=== PATIENT | male | born 1940 | race Caucasian/White ===

== ENCOUNTER 2017-12-19 18:26 | Observation (INO) | payer MEDICARE ==
[2017-12-19 18:59] LABS: Bilirubin Negative (Negative); Blood, Urine Trace (Negative); Clarity CLEAR (Clear); Glucose, Urine (Dipstick) 250 mg/dL (Negative); Leukocyte Negative (Negative); Nitrite Negative (Negative); Protein, Urine (Dipstick) Negative (Neg-Trace); Specific Gravity, Urine 1.012 (1.002-1.036); Urobilinogen 0.2 mg/dL (0.2-1.0)
[2017-12-19 19:11] LABS: Bacteria/HPF Rare-Few HPF (None Seen); Hyaline Casts/LPF 0-3 HYALINE CAST LPF (0-3 Hyaline); RBC/HPF None Seen HPF (0-3); Squamous Epithelial None Seen HPF (0-3); WBC/HPF None Seen HPF (0-3)
[2017-12-19 19:22] LABS: #Lymphocytes 0.8 thou/uL (1.20-3.40); #Monocytes 0.1 thou/uL (0.11-0.59); #Neutrophils 7.7 thou/uL (1.40-6.50); %Basophils 0.1 % (0.0-1.0); %Eosinophils 0.2 % (0.0-10.0); %Lymphocytes 9.3 % (21.0-51.0); %Monocytes 1.2 % (0.0-10.0); %Neutrophils 89.2 % (42.0-75.0); Hemoglobin 14.3 g/dL (14.0-18.0); Mean Corpuscular Hemoglobin 27.6 pg (27.0-31.0); Mean Corpuscular Volume 86.1 fl (80.0-94.0); Mean Platelet Volume 8.1 fL (7.4-10.4); Platelet Count 190 thou/uL (130-400); White Blood Cell (WBC) Count 8.6 thou/uL (4.8-10.8)
[2017-12-19 19:45] LABS: ALT (SGPT) 9 U/L (8-55); AST (SGOT) 14 U/L (5-34); Albumin 4.3 g/dL (3.4-4.8); Alkaline Phosphatase 54 U/L (40-150); Anion Gap 20 mmol/L (10-20); BUN (Urea Nitrogen) 35 mg/dL (8.4-25.7); Bilirubin, Total 0.4 mg/dL (0.2-1.2); Calc. Creatinine Clearance 0 mL/min (70-130); Calcium 9.4 mg/dL (7.8-10.44); Carbon Dioxide 18 mmol/L (23-31); Chloride 100 mmol/L (98-107); Estimated GFR-MDRD 32; Globulin 3.7 g/dL (2.4-3.5); Glucose 259 mg/dL (83-110); Magnesium 1.8 mg/dL (1.6-2.6); Potassium 4.8 mmol/L (3.5-5.1); Sodium 133 mmol/L (136-145)
[2017-12-19 19:49] LABS: CKMB 4.1 ng/mL (0-6.6); Troponin I 0.011 ng/mL (< 0.028)
[2017-12-19] MEDS ORDERED: Adacel (T-DAP) 0.5 ML VIAL ONE (21:15)
--- NOTE | 2017-12-19 23:09 | PDOC.PN ---
- Subjective Encounter Start Date: 12/19/17 Encounter Start Time: 23:09 - Objective Result Diagrams: 12/19/17 19:11 12/19/17 19:11 Dx/Plan - Plan * . Review of Systems - Medications/Allergies Allergies/Adverse Reactions: Allergies Allergy/AdvReac Type Severity Reaction Status Date / Time No Known Allergies Allergy Unverified 07/11/15 13:45
[2017-12-20] MEDS ORDERED: Sodium Chloride 0.45% 1,000 ML IV SCH (01:00)
[2017-12-20 02:01] LABS: Troponin I Less than 0.010 ng/mL (< 0.028)
[2017-12-20] MEDS: Sodium Chloride 0.9% 1,000 ML IV SCH ×2 (02:44→16:41)
[2017-12-20] MEDS ORDERED: Insulin Regular 300 UNITS/3 ML VIAL SC PRN (02:59)
[2017-12-20] MEDS ORDERED: Calcium Carbonate 500 MG ChewTAB PO PRN (02:59)
[2017-12-20] MEDS ORDERED: Acetaminophen 325 MG TAB PO PRN (02:59)
[2017-12-20] MEDS ORDERED: Dextrose 5% in Water 1,000 ML IV PRN (02:59)
[2017-12-20] MEDS ORDERED: Ondansetron ODT 4 MG TAB PO PRN (02:59)
[2017-12-20] MEDS ORDERED: Dextrose 50% Abboject 50 ML SYRINGE SLOW IVP PRN (02:59)
[2017-12-20] MEDS ORDERED: Ondansetron HCl/PF 4 MG/2 ML Vial IVP PRN (02:59)
[2017-12-20] MEDS ORDERED: Senokot 8.6 MG TAB PO PRN (02:59)
--- NOTE | 2017-12-20 03:51 | HP ---
DATE OF ADMISSION: 12/19/2017 The patient was seen and examined on 12/19/2017. CHIEF COMPLAINT: Generalized weakness. HISTORY OF PRESENT ILLNESS: The patient is a 77-year-old male with coronary artery disease, hyperten marissa, and diabetes mellitus type 2, presented to [facility] with above complaints. The patient normally follows Dr. Bales. Over the past 2 to 3 days, the patient had diarrhea, the diarrhea that was watery and several episode s a day. His last episode of diarrhea was yesterday. Over the past 24 hours, the patient had nausea , vomiting along with poor appetite. He also had mild generalized abdominal pain that is more or les s resolved. Earlier today while he was at his grandson's event, he had a near syncopal episode. There was no los s of consciousness. Later on while he was taken into a pickup truck he fell and hit his left elbow. There was no double vision, blurring of vision, facial asymmetry, palpitations reported. He denies any fever or chills. PAST MEDICAL HISTORY: 1. Coronary artery disease. 2. Hypertension. 3. Hyperlipidemia. 4. History of TIA. 5. Depression. PAST SURGICAL HISTORY: 1. Cholecystectomy. 2. Appendectomy. 3. Vasectomy. ALLERGIES: The patient denies any drug allergies. CURRENT HOME MEDICATIONS: Family to get accurate list of medications. SOCIAL HISTORY: The patient currently lives at home with his son and grandchildren. No smoking, alc ohol, or drug use. Ambulates with the help of a cane. FAMILY HISTORY: Negative for premature coronary artery disease. REVIEW OF SYSTEMS: The following complete review of systems was negative, unless otherwise mentioned in the HPI or below: Constitutional: Weight loss or gain, ability to conduct usual activities. Skin: Rash, itching. Eyes: Double vision, pain. ENT/Mouth: Nose bleeding, neck stiffness, pain, tenderness. Cardiovascular: Palpitations, dyspnea on exertion, orthopnea. Respiratory: Shortness of breath, wheezing, cough, hemoptysis, fever or night sweats. Gastrointestinal: Poor appetite, abdominal pain, heartburn, nausea, vomiting, constipation, or diarr hea. Genitourinary: Urgency, frequency, dysuria, nocturia. Musculoskeletal: Pain, swelling. Neurologic/Psychiatric: Anxiety, depression. Allergy/Immunologic: Skin rash, bleeding tendency. Events at the [place] emergency room, the patient received IV fluid with 125 Solu-Medrol, Zofran 20 mg IV Lasix and Neosporin ointment on the skin laceration. His chest x-ray was negative for infi ltrate. His WBC at the outside facility showed 7.2 with hemoglobin 12, platelet count of 212. His B UN was 32 with creatinine 2.1 with troponin of 0.01. BNP of 163. Sodium was 145, potassium 4.9. Ur inalysis showed 6 to 14 wbc's with some hyalin casts without any bacteria. His EKG by my review show ed sinus rhythm with left axis deviation without significant ST-T wave changes. He received a dose o f Levaquin and tetanus toxoid at this facility. PHYSICAL EXAMINATION: VITAL SIGNS: Temperature 98.3, respirations 16, pulse 103, blood pressure 133/61 with O2 saturation 97% on room air. GENERAL: A 77-year-old male in no apparent distress, feels better after IV fluids. HEENT: Head atraumatic, normocephalic. Sclerae are anicteric. Dry mucous membranes. No oral lesio n. NECK: Supple, no JVD appreciated. No carotid bruit. LUNGS: Essentially clear to auscultation bilaterally, no wheezing, rales or rhonchi. HEART: S1, S2 present. Regular rate and rhythm. No murmur, rubs or gallops. ABDOMEN: Soft, obese, bowel sounds present, no rebound, guarding, no costovertebral angle tenderness . EXTREMITIES: No edema or calf tenderness. SKIN: Warm and dry. There is approximately 5 x 5 cm lipoma over his posterior upper back. There is also a laceration on the dorsum of his left hand. LYMPH NODES: No palpable lymph nodes in the neck. NEUROLOGIC: Grossly nonfocal, moves all four extremities. PSYCHIATRY: Alert, awake, oriented x3. PERIPHERAL VASCULAR: Radial pulses palpable bilaterally. MUSCULOSKELETAL: No joint swelling or tenderness. LABORATORY FINDINGS: As discussed above. Repeat creatinine at this facility was 2.03 with BUN 35. His baseline creatinine is around 1.27. EKG by my review as discussed above. [facility] x-[facility] at the [facility] facility was negative for acute findings. IMPRESSION: 1. Generalized weakness, probably secondary to dehydration/hypovolemia/acute kidney injury. 2. Acute kidney injury on chronic kidney disease stage 3, most likely secondary to hypovolemia. 3. Hyponatremia with sodium 133 secondary to dehydration. 4. Hypertension. 5. Diabetes mellitus type 2. 6. Gastroesophageal reflux disease. 7. History of coronary artery disease. 8. Questionable urinary tract infection based on urinalysis at the outside facility. However, allyssa reyes urinalysis at this facility was negative for wbc or bacteria. He received a dose of Levaquin in th e emergency room. Urine cultures have been sent. 9. Benign prostatic hypertrophy. The patient follows Dr. Ayala. 10. Near syncope secondary to generalized weakness. 11. Metabolic acidosis probably secondary to renal failure. PLAN: The patient will be monitored on the medical floor. His diarrhea has resolved. The patient p saeid had acute gastroenteritis that has resolved. A KUB will be obtained to make sure that nicolas reyes does not have any obstructive pathology. The patient had nausea, vomiting yesterday. Renal ultras ound has been ordered. We will check postvoid residual. We will resume home medications once confir med. Insulin sliding scale will be started. Please note that patient received Solu-Medrol at the [facility] emergency room which may cause hyperglycemia. We will repeat labs in a.m. Also consult Physic al Therapy. Plan of care was discussed with the patient and the son at the bedside. They stated understanding. CODE STATUS: FULL CODE. SURROGATE DECISION MAKER: The patient makes his own decisions with the help of his family. Please note the patient was seen on 12/19/2017.
[2017-12-20 04:23] VITALS: BMI 31.1
[2017-12-20 05:17] LABS: Anion Gap 17 mmol/L (10-20); BUN (Urea Nitrogen) 41 mg/dL (8.4-25.7); Calc. Creatinine Clearance 38 mL/min (70-130); Calcium 8.9 mg/dL (7.8-10.44); Carbon Dioxide 21 mmol/L (23-31); Chloride 101 mmol/L (98-107); Estimated GFR-MDRD 30; Glucose 446 mg/dL (83-110); Potassium 4.7 mmol/L (3.5-5.1); Sodium 134 mmol/L (136-145)
[2017-12-20] MEDS: Insulin Regular 300 UNITS/3 ML VIAL SC PRN ×2 (05:53→17:40)
[2017-12-20] MEDS: Aspirin 81 mg Enteric Coated Tablet PO SCH (08:29)
[2017-12-20] MEDS ORDERED: NIFEdipine XL 30 MG TAB PO SCH (09:00)
[2017-12-20] MEDS ORDERED: Gabapentin 300 MG CAP PO SCH ×2 (09:00→21:00)
[2017-12-20] MEDS ORDERED: Tamsulosin HCl 0.4 MG CAP PO SCH ×2 (09:00→21:00)
[2017-12-20] MEDS ORDERED: Insulin Detemir 100 UNITS/ML 10 UNITS in Pre-Filled Syringe 1 EACH SC SCH (10:30)
--- NOTE | 2017-12-20 11:11 | ULT ---
BILATERAL RENAL ULTRASOUND: Date: 12/20/17 PROVIDED CLINICAL HISTORY: Renal failure. FINDINGS: Right kidney measures about 11.6 x 5.7 x 6.4 cm and demonstrates no evidence for hydronephrosis or ma ss. Multiple simple appearing cysts are seen, largest at the inferior pole, measures about 2.3 cm. Left kidney measures about 12.2 x 6.0 x 6.3 cm and demonstrates no evidence for hydronephrosis or mas s. Multiple simple appearing cysts are seen, the largest of which measures about 1.9 cm near the supe rior pole. The urinary bladder appears sonographically unremarkable. IMPRESSION: No evidence for hydronephrosis. POS: [facility]
[2017-12-20 11:20] LABS: Anion Gap 13 mmol/L (10-20); BUN (Urea Nitrogen) 35 mg/dL (8.4-25.7); Calc. Creatinine Clearance 47 mL/min (70-130); Carbon Dioxide 24 mmol/L (23-31); Chloride 104 mmol/L (98-107); Estimated GFR-MDRD 38; Glucose 151 mg/dL (83-110); Potassium 4.5 mmol/L (3.5-5.1); Sodium 136 mmol/L (136-145)
--- NOTE | 2017-12-20 12:12 | RAD ---
KUB AND UPRIGHT: Date: 12/20/17 HISTORY: Nausea, vomiting, and abdominal pain. FINDINGS: There is air in both small and large bowel in a nonobstructed pattern. No signs of free air. Postop c holecystectomy changes are seen. There are arthritic changes of the spine and hips. IMPRESSION: No acute findings. POS: [facility]
--- NOTE | 2017-12-20 15:27 | PDOC.PN ---
- Subjective Encounter Start Date: 12/20/17 Encounter Start Time: 10:00 Subjective: pt up in bed feels a little weak - Objective Resuscitation Status: Resuscitation Status FULL:Full Resuscitation Vital Signs & Weight: Vital Signs (12 hours) Temp Pulse Resp BP BP BP BP 12/20/17 13:55 12/20/17 11:45 97.6 F 91 20 170/86 H 12/20/17 08:30 97.9 F 88 20 12/20/17 08:29 88 163/75 H 12/20/17 07:34 97.9 F 88 20 163/75 H 12/20/17 05:00 98.4 F 92 18 143/70 H 136/75 158/77 H 12/20/17 04:27 98 F 108 H 22 H Pulse Ox 12/20/17 13:55 96 12/20/17 11:45 96 12/20/17 08:30 12/20/17 08:29 12/20/17 07:34 96 12/20/17 05:00 96 12/20/17 04:27 Weight Weight 211 lb 3.2 oz I&O: 12/19/17 12/20/17 12/21/17 06:59 06:59 07:59 Intake Total 425 Output Total 950 250 Balance -525 -250 Result Diagrams: 12/19/17 19:11 12/20/17 10:53 Phys Exam - Physical Examination HEENT: PERRLA Neck: no nodes Respiratory: no wheezing, no rales Cardiovascular: RRR, no significant murmur Gastrointestinal: soft, non-tender Musculoskeletal: no edema, pulses present Neurological: non-focal Dx/Plan - Plan * . 1) amor 2) n/v/diarrhea 3) weakness 4) dm type 2 plan: improving with iv hydration n/v/d resolved pt walked with PT felt week. will keep pt for one more day and see if he feels well to be discharged in am. will hold metformin due to amor on ss insulin will hold lisinopril for now due to his amor Review of Systems - Review of Systems Eyes: negative: Pain, Vision Change, Conjunctivae Inflammation, Eyelid Inflammation, Redness, Other ENT: negative: Ear Pain, Ear Discharge, Nose Pain, Nose Discharge, Nose Congestion, Mouth Pain, Mouth Swelling, Throat Pain, Throat Swelling, Other Respiratory: negative: Cough, Dry, Shortness of Breath, Hemoptysis, SOB with Excertion, Pleuritic Pain, Sputum, Wheezing Cardiovascular: negative: chest pain, palpitations, orthopnea, paroxysmal nocturnal dyspnea, edema, light headedness, other Gastrointestinal: negative: Nausea, Vomiting, Abdominal Pain, Diarrhea, Constipation, Melena, Hematochezia, Other Neurological: Weakness - Medications/Allergies Allergies/Adverse Reactions: Allergies Allergy/AdvReac Type Severity Reaction Status Date / Time No Known Allergies Allergy Verified 12/20/17 04:15 Medications: Current Medications Acetaminophen (Tylenol) 650 mg PO Q4H PRN PRN Reason: Headache/Fever or Pain Aspirin (Ecotrin) 81 mg PO DAILY [facility] Last Admin: 12/20/17 08:29 Dose: 81 mg Atorvastatin Calcium (Lipitor) 20 mg PO QPM [facility] Calcium Carbonate (Tums) 1,000 mg PO Q4H PRN PRN Reason: Heartburn or Indigestion Dextrose/Water (Dextrose 50%) 25 gm SLOW IVP PRN PRN PRN Reason: Hypoglycemia Gabapentin (Neurontin) 600 mg PO BID [facility] Last Admin: 12/20/17 08:42 Dose: Not Given Glucagon (Glucagon) 1 mg IM PRN PRN PRN Reason: Hypoglycemia Sodium Chloride (Normal Saline 0.9%) 1,000 mls @ 100 mls/hr IV .Q10H [facility] Last Admin: 12/20/17 02:44 Dose: 1,000 mls Dextrose/Water (D5w) 1,000 mls @ 0 mls/hr IV .Q0M PRN; As Directed PRN Reason: Hypoglycemia Insulin Detemir 10 units/ (Miscellaneous Medication) 0.1 mls @ 0 mls/hr SC QAM [facility] Insulin Human Regular (Humulin R) 0 units SC .MILD SLIDING SCALE PRN PRN Reason: Mild Correctional Scale Last Admin: 12/20/17 05:53 Dose: 5 unit Insulin Human Regular (Humulin R) 0 units SC .BEDTIME SLIDING SC PRN PRN Reason: Bedtime Correctional Scale Nifedipine (Procardia Xl) 30 mg PO TID [facility] Ondansetron HCl (Zofran Odt) 4 mg PO Q6H PRN PRN Reason: Nausea/Vomiting Ondansetron HCl (Zofran) 4 mg IVP Q6H PRN PRN Reason: Nausea/Vomiting Senna (Senokot) 2 tab PO HSPRN PRN PRN Reason: Constipation Sodium Chloride (Flush - Normal Saline) 10 ml IVF Q12HR [facility] Last Admin: 12/20/17 08:25 Dose: Not Given Sodium Chloride (Flush - Normal Saline) 10 ml IVF PRN PRN PRN Reason: Saline Flush Tamsulosin HCl (Flomax) 0.4 mg PO BID [facility] Last Admin: 12/20/17 08:42 Dose: Not Given
[2017-12-20] MEDS: NIFEdipine XL 30 MG TAB PO SCH ×2 (16:17→19:49)
[2017-12-20] MEDS ORDERED: Tamsulosin HCl 0.4 MG CAP PO PRN (16:57)
[2017-12-20] MEDS ORDERED: Gabapentin 300 MG CAP PO PRN (16:58)
[2017-12-20] MEDS ORDERED: Sodium Chloride 0.9% 10 ML ONE (17:50)
[2017-12-20] MEDS ORDERED: Zolpidem Tartrate 5 MG TAB PO PRN (17:53)
[2017-12-20] MEDS ORDERED: Simvastatin 40 MG TAB PO SCH (21:00)
[2017-12-20] MEDS ORDERED: Atorvastatin Calcium 20 MG TAB PO SCH (21:00)
[2017-12-21 04:57] LABS: Anion Gap 12 mmol/L (10-20); BUN (Urea Nitrogen) 27 mg/dL (8.4-25.7); Calc. Creatinine Clearance 56 mL/min (70-130); Calcium 8.8 mg/dL (7.8-10.44); Carbon Dioxide 24 mmol/L (23-31); Chloride 104 mmol/L (98-107); Estimated GFR-MDRD 47; Glucose 166 mg/dL (83-110); Potassium 4.1 mmol/L (3.5-5.1); Sodium 136 mmol/L (136-145)
[2017-12-21 08:10] VITALS: BP 168/81; TEMP 98.3
[2017-12-21] MEDS: NIFEdipine XL 30 MG TAB PO SCH (08:53)
[2017-12-21] MEDS: Aspirin 81 mg Enteric Coated Tablet PO SCH (08:53)
[2017-12-21] MEDS ORDERED: Insulin Detemir 100 UNITS/ML 10 UNITS in Pre-Filled Syringe 1 EACH SC SCH ×2 (09:00→11:00)
--- NOTE | 2017-12-21 13:47 | DIS ---
DATE OF ADMISSION: 12/20/2017 DATE OF DISCHARGE: 12/21/2017 DISCHARGE DIAGNOSES: 1. Acute kidney injury secondary to volume depletion, improved. 2. Chronic kidney disease, stage 3. 3. Nausea and vomiting, resolved. 4. Orthostatic hypotension secondarily to volume depletion, resolved. 5. Coronary artery disease, chronic and stable. 6. Hypertension. 7. Generalized weakness, improved. CONSULTATIONS: None. PERTINENT LAB AND X-RAY FINDINGS: Creatinine ranged between 1.45-2.11. Estimated GFR ranged between 30-47, magnesium level 1.8. Troponin I negative x3. BNP 85. CBC within normal limits. Blood cult ures x2 dated 12/19/2017 showed no growth to date. Urine culture dated 12/19/2017 showed no growth a t 12 hours. Abdominal radiographs dated 12/20/2017 showed no acute findings. Renal ultrasound dated 12/20/2017 showed no evidence for hydronephrosis. HOSPITAL COURSE: The patient was observed after presenting with nausea, vomiting, unsteady gait, and acute kidney injury. The patient was given IV fluid hydration as well as antiemetics and general alvarado pportive measures with serial monitoring of creatinine showing overall improved values with hydration . The patient was discontinued on nephrotoxic agents during the hospital course with overall stabili zation and resolution of nausea and vomiting with supportive measures. KUB of the abdomen and renal ultrasound were negative and the patient remained clinically stable. [facility], ambulating in the hallways with use of a walking cane without difficulty. The patien t was noted with mild orthostatic hypotension, improved with IV fluid hydration. Overall, the patien t clinically stable, tolerating regular oral intake, ambulating with use of a cane with stable vital signs at the time of discharge. The patient ready for discharge on 12/21/2017. DISCHARGE MEDICATIONS: 1. Enteric coated aspirin 81 mg 1 tab p.o. daily. 2. Nexium 40 mg p.o. q.a.m. 3. Gabapentin 600 mg p.o. b.i.d. 4. Procardia-XL 90 mg p.o. daily. 5. Simvastatin 40 mg p.o. at bedtime. 6. Tamsulosin 0.4 mg p.o. at bedtime. FOLLOWUP: The patient will follow up with his primary care provider, Dr. Osmin Bales within 7 days of discharge. CONDITION ON DISCHARGE: Stable. ACTIVITY: ad jenn. DIET: Heart healthy. CODE STATUS: FULL. DISPOSITION: Home on 12/21/2017.
== END 2017-12-21 10:16 | disposition home or self-care (01) ==
LOC: ERS 18:26 → 2SW 12-20 00:33
PROVIDERS: ADMIT Internal Medicine; ATTEND Internal Medicine
DX: E86.9 Volume depletion, unspecified (principal); N17.9 Acute kidney failure, unspecified; E11.22 Type 2 diabetes mellitus with diabetic chronic kidney disease; I12.9 Hypertensive chronic kidney disease with stage 1 through stage 4 chronic kidney disease, or unspecified chronic kidney disease; N18.3 Chronic kidney disease, stage 3 (moderate); R11.2 Nausea with vomiting, unspecified; I95.1 Orthostatic hypotension; R53.1 Weakness; R26.81 Unsteadiness on feet; I25.10 Atherosclerotic heart disease of native coronary artery without angina pectoris; E78.5 Hyperlipidemia, unspecified; F32.9 Major depressive disorder, single episode, unspecified; K21.9 Gastro-esophageal reflux disease without esophagitis; E87.1 Hypo-osmolality and hyponatremia; N40.0 Benign prostatic hyperplasia without lower urinary tract symptoms; E87.2 Acidosis; Z99.89 Dependence on other enabling machines and devices; Z79.82 Long term (current) use of aspirin; Z79.899 Other long term (current) drug therapy; Z90.49 Acquired absence of other specified parts of digestive tract; Z98.52 Vasectomy status; Z86.73 Personal history of transient ischemic attack (TIA), and cerebral infarction without residual deficits
CPT/HCPCS: 74019; 76770; 80048 ×3; 80053; 82553; 82962; 83735; 83880; 84300; 84484 ×3; 85025; 87040; 87086; 90471; 90715; 93005; 96361; 96365; 97116; 97139 ×2; 97530; 99285; G0378 ×2; G8978; G8979; G8980; 36415; 36416; 81003; 81015; A4216; J1815; J1956

== ENCOUNTER 2018-01-15 04:42 | Inpatient (IN) | payer MEDICARE ==
[2018-01-15 05:38] LABS: #Basophils 0.1 thou/uL (0.0-0.2); #Eosinphils 0.1 thou/uL (0.0-0.7); #Lymphocytes 0.8 thou/uL (1.20-3.40); #Monocytes 0.6 thou/uL (0.11-0.59); #Neutrophils 6.2 thou/uL (1.40-6.50); %Basophils 0.8 % (0.0-1.0); %Eosinophils 1.1 % (0.0-10.0); %Lymphocytes 10.7 % (21.0-51.0); %Monocytes 7.6 % (0.0-10.0); %Neutrophils 79.7 % (42.0-75.0); Mean Corpuscular HGB CONC 31.8 g/dL (32.0-36.0); Mean Corpuscular Hemoglobin 26.9 pg (27.0-31.0); Mean Corpuscular Volume 84.4 fl (80.0-94.0); Mean Platelet Volume 8.5 fL (7.4-10.4); Platelet Count 204 thou/uL (130-400); Red Blood Cell (RBC) Count 4.47 mill/uL (4.70-6.10); White Blood Cell (WBC) Count 7.8 thou/uL (4.8-10.8)
[2018-01-15 05:44] LABS: INR-International Normal Ratio 1.1; PTT 30.2 SEC (22.9-36.1); Prothrombin Time 14.4 SEC (12.0-14.7)
[2018-01-15 05:45] LABS: D-Dimer Test 0.63 *mcg/mL (0.27-0.43)
[2018-01-15 05:58] LABS: ALT (SGPT) 12 U/L (8-55); AST (SGOT) 13 U/L (5-34); Albumin 3.6 g/dL (3.4-4.8); Alkaline Phosphatase 59 U/L (40-150); Anion Gap 13 mmol/L (10-20); BUN (Urea Nitrogen) 23 mg/dL (8.4-25.7); Bilirubin, Total 0.4 mg/dL (0.2-1.2); CK (CPK) 182 U/L (30-200); Calc. Creatinine Clearance 0 mL/min (70-130); Calcium 8.2 mg/dL (7.8-10.44); Carbon Dioxide 24 mmol/L (23-31); Chloride 101 mmol/L (98-107); Estimated GFR-MDRD 37; Globulin 3.1 g/dL (2.4-3.5); Glucose 170 mg/dL (83-110); Lipase 11 U/L (8-78); Potassium 3.7 mmol/L (3.5-5.1); Protein, Total 6.7 g/dL (5.8-8.1); Sodium 134 mmol/L (136-145)
[2018-01-15 06:02] LABS: CKMB 2.8 ng/mL (0-6.6); Troponin I 0.016 ng/mL (< 0.028)
[2018-01-15 07:47] LABS: Actual Bicarbonate (HCO3a) 22.3 mEq/L (22-26); Base Excess (BEa) -1.5 mEq/L (0 (+/-) 2.5); CO2 Tension 34.1 mmHg (35.0-45.0); Hematocrit-ABG 38.3 % (42.0-52.0); Hemoglobin (Hb) 11.1 g/dL (14.0-18.0); pH, Arterial 7.43 (7.35-7.45)
[2018-01-15 07:48] LABS: ALV-art Gradient 156.055 (0-20); Analyzer IN Cardio ER; Puncture Site RRA
[2018-01-15 07:52] LABS: Bacteria/HPF None Seen HPF (None Seen); Bilirubin Negative (Negative); Blood, Urine Trace (Negative); Clarity CLEAR (Clear); Glucose, Urine (Dipstick) Negative (Negative); Leukocyte Negative (Negative); Nitrite Negative (Negative); Pathc Cast-AUWi Flag 2.61 (0-2.49); Protein, Urine (Dipstick) 300 mg/dL (Neg-Trace); RBC/HPF None Seen HPF (0-3); Specific Gravity, Urine 1.014 (1.002-1.036); Squamous Epithelial None Seen HPF (0-3); Urobilinogen 0.2 mg/dL (0.2-1.0); WBC/HPF None Seen HPF (0-3)
[2018-01-15 08:02] LABS: Hyaline Casts/LPF NONE SEEN LPF (0-3 Hyaline); Manual Microscopic Reviewed? No Path Casts Seen
--- NOTE | 2018-01-15 08:06 | CT ---
CT PULMONARY ANGIOGRAM WITH IV CONTRAST AND 3D POSTPROCESSING: Date: 01/15/18 HISTORY: Congestive heart failure. Shortness of breath. FINDINGS: The pulmonary arterial vasculature is well opacified without filling defects to suggest pulmonary emb olism. The thoracic aorta is well opacified. No thoracic aortic aneurysm or dissection is seen. A sma ll pericardial effusion is present. There are bilateral moderate sized pleural effusions with adjacen t consolidation/atelectatic changes. No pneumothoraces are seen. There are prominent mediastinal lymp h nodes measuring up to 1.0 cm. There are degenerative changes in the spine. Upper abdominal tomogra ms demonstrate renal cysts and changes of previous cholecystectomy. IMPRESSION: 1. No CT evidence of pulmonary embolism. 2. Bilateral pleural effusions with adjacent atelectasis/consolidation. 3. Small pericardial effusion. 4. Mediastinal lymph nodes up to 1.0 cm in maximum short axis diameter. Discussed over the telephone with ER physician, Dr. Carlos Alicea, at 0747 hours. CODE CR. POS: [facility]
--- NOTE | 2018-01-15 08:08 | ULT ---
BILATERAL LOWER EXTREMITY VENOUS DOPPLER ULTRASOUND: Date: 01/15/18 HISTORY: Bilateral lower extremity pain and edema. TECHNIQUE: Singh scale ultrasound with color flow and spectral Doppler imaging of the deep venous systems of the lower extremities was performed bilaterally. FINDINGS: There is good flow, compression, and augmentation noted in the common femoral, femoral, deep femoral, popliteal, posterior tibial, and greater saphenous veins on either side. IMPRESSION: No evidence of deep venous thrombosis in either lower extremity. POS: [facility]
[2018-01-15 09:01] VITALS: BMI 34.0
[2018-01-15] MEDS ORDERED: Ondansetron ODT 4 MG TAB SL PRN (09:13)
[2018-01-15] MEDS ORDERED: Ondansetron HCl/PF 4 MG/2 ML Vial IVP PRN ×2 (09:13→10:46)
--- NOTE | 2018-01-15 09:58 | RAD ---
SINGLE VIEW CHEST: Date: 01/15/18 COMPARISON: None. HISTORY: New onset CHF. Dyspnea. FINDINGS: Single view of the chest shows a normal sized cardiomediastinal silhouette. There are opacities in antonio th lower lobes, likely secondary to bilateral lower lobe infiltrates. Adjacent pleural effusions may be present. There are multiple healed right rib fractures. IMPRESSION: Bilateral lower lobe infiltrates with adjacent pleural effusions. POS: [facility]
[2018-01-15] MEDS ORDERED: cloNIDine 0.1 MG TAB PO PRN (10:46)
[2018-01-15] MEDS ORDERED: Ondansetron ODT 4 MG TAB PO PRN (10:46)
[2018-01-15] MEDS ORDERED: Dextrose 5% in Water 1,000 ML IV PRN (10:46)
[2018-01-15] MEDS ORDERED: Acetaminophen 500 MG TAB PO PRN (10:46)
[2018-01-15] MEDS ORDERED: Dextrose 50% Abboject 50 ML SYRINGE SLOW IVP PRN (10:46)
[2018-01-15] MEDS ORDERED: hydrALAZINE 20 MG/ML VIAL SLOW IVP PRN (10:46)
[2018-01-15] MEDS ORDERED: Gabapentin 300 MG CAP PO SCH (11:30)
[2018-01-15] MEDS ORDERED: Furosemide 40 MG/4 ML VIAL SLOW IVP SCH (11:30)
[2018-01-15] MEDS ORDERED: Famotidine 20 MG TAB PO SCH ×2 (11:30→21:00)
[2018-01-15] MEDS ORDERED: NIFEdipine XL 90 MG TAB PO SCH (11:30)
[2018-01-15] MEDS ORDERED: Lisinopril 2.5 MG TAB PO SCH (11:30)
--- NOTE | 2018-01-15 12:50 | HP ---
DATE OF ADMISSION: 01/15/2018 PRIMARY CARE PROVIDER: Dr. Osmin Bales. CHIEF COMPLAINT: Shortness of breath and lower extremity swelling. HISTORY OF PRESENT ILLNESS: This is an 78-year-old male, who presents to [facility] in transfer from [facility] where patient presented with increased cough, shortness of breath, and lower extremity swelling. The patient underwent general evaluation i ncluding chest imaging showing pulmonary edema and bilateral pleural effusions. The patient received Lasix and was transferred to [facility] Emergency Department for evaluation. The patient a lso was treated with aspirin 324 mg and Levaquin after concern for possible concomitant infiltrate. The patient has noticed increased lower extremity swelling over the last week and a half and was nota manda recently admitted to [facility] for nausea, vomiting, acute kidney injury, and orthostatic hypotension, likely secondary to dehydration. The patient received IV fluids, antie metics, and subsequently was discharged home on 12/21/2017. The patient states he has been attemptin g to modify his diet; however, had been increasing his fluid intake up to 2 quarts of water daily. T he patient denied any specific salt indiscretion, but has not been monitoring the actual number. The patient denied any specific chest pain, fever, chills, recent fall, or injury. The patient denies a ny chronic oxygen supplementation at home. The patient had some difficulty lying flat and noticed th at the swelling in his legs progressed to his upper extremities into his abdomen. The patient denies any known history of heart failure. The [facility] PAST MEDICAL HISTORY: 1. Chronic kidney disease, stage 3. 2. Diabetes mellitus, type 2. 3. History of coronary artery disease, medically managed. 4. Hypertension. 5. Hyperlipidemia. 6. History of TIA. 7. Benign prostatic hyperplasia. PAST SURGICAL HISTORY: 1. Status post cholecystectomy. 2. Status post appendectomy. 3. Status post vasectomy. CURRENT MEDICATIONS: 1. Enteric-coated aspirin 650 mg p.o. daily. 2. Nexium 40 mg p.o. daily. 3. Gabapentin 300 mg p.o. daily. 4. Glipizide 5 mg p.o. daily. 5. Procardia-XL 90 mg p.o. daily. 6. Simvastatin 40 mg p.o. at bedtime. 7. Tamsulosin 0.4 mg p.o. at bedtime. ALLERGIES: No known drug allergies. FAMILY HISTORY: No history of coronary artery disease or congestive heart failure. SOCIAL HISTORY: Patient is , lives at home with his son in the [place], [place] area. Ret ired. No current alcohol, tobacco, or illicit drug use. Ambulatory with use of a cane. REVIEW OF SYSTEMS: The following complete review of systems was negative, unless otherwise mentioned in the HPI or below: Constitutional: Weight loss or gain, ability to conduct usual activities. Sk in: Rash, itching. Eyes: Double vision, pain. ENT/Mouth: Nose bleeding, neck stiffness, pain, te nderness. Cardiovascular: Palpitations, dyspnea on exertion, orthopnea. Respiratory: Shortness of breath, wheezing, cough, hemoptysis, fever, or night sweats. Gastrointestinal: Poor appetite, abdo easton pain, heartburn, nausea, vomiting, constipation, or diarrhea. Genitourinary: Urgency, frequen cy, dysuria, nocturia. Musculoskeletal: Pain, swelling. Neurologic/Psychiatric: Anxiety, depressi on. Allergy/Immunologic: Skin rash, bleeding tendency. Otherwise negative except as stated per HPI . PHYSICAL EXAMINATION: VITAL SIGNS: Currently, blood pressure 132/53, pulse 98, respiratory rate 18, temperature 97.7 degre es Fahrenheit, O2 saturation 95% on 3.5 liters per minute by nasal cannula. GENERAL APPEARANCE: This is an 78-year-old male, alert and oriented x3, pleasant, in mild respiratory distress. HEENT EXAM: Pupils are equal, round, and reactive to light and accommodation. Extraocular muscles a re intact. No scleral icterus, no conjunctival injection. Nares patent. OP is clear. Edentulous. NECK: Supple, no cervical adenopathy, no thyromegaly, no carotid bruits, no JVD noted. Cervical spi ne with full active and passive range of motion. CHEST: Diminished breath sounds in the bases bilaterally with bibasilar crackles. CARDIOVASCULAR EXAM: S1 and S2 with distant heart sounds. ABDOMEN: Obese, soft, nontender, nondistended. Bowel sounds are positive in all four quadrants. Th ere is no hepatosplenomegaly, no abdominal bruits, no rebound or guarding noted. EXTREMITIES: Pitting edema to the lower thighs. Pulses palpable distally at the dorsalis pedis, pos terior tibial, and popliteal arteries bilaterally. Capillary refill less than 2 seconds. NEUROLOGIC EXAM: Cranial nerves II-XII are grossly intact. No focal or lateralizing signs appreciat ed. PERTINENT LABORATORY AND X-RAY FINDINGS: Revealed sodium 134, potassium 3.7, chloride 101, CO2 of 24 , BUN 23, creatinine 1.77, estimated GFR 37, glucose 170. Lactic acid level 1.0, calcium 8.2. LFTs within normal limits. Troponin I 0.016. BNP 208, previously noted 85, 12/19/2017. CBC showed a [facility] te blood cell count of 7.8, hemoglobin 12, hematocrit 38, platelet count 204 with 80% neutrophils. P T 14.4, INR 1.1, PTT 30.2. Urinalysis positive for protein, trace blood. Influenza A and B antigen dated 01/15/2018 negative. Portable chest x-ray dated 01/15/2018 showed bilateral pleural effusions. Multiple healed right rib fractures. Bilateral lower extremity venous Doppler study showed no evid ence for DVT. CT angiogram of the chest dated 01/15/2018 showed no evidence for pulmonary embolus. Bilateral pleural effusions with associated atelectasis noted. EKG dated 01/15/2018, by my interpret ation, shows a sinus mechanism with heart rates in the low 100s. Attenuated R waves in the precordia l leads. Question of left bundle branch block pattern. First-degree AV block noted. Left axis evi ation. ASSESSMENT AND PLAN: 1. Acute congestive heart failure. The patient will be admitted to the intermediate care unit. We will continue Lasix 40 mg IV q.12 hours. Obtain 2D transthoracic echocardiogram to further delineate ejection fraction and wall motion abnormalities. Last echocardiogram performed in 2012 showed prese rved ejection fraction in the 55%-60% range. Likely diastolic component. Consult Cardiology Service for further evaluation. Monitor strict I's and O's and daily weight. 2. Chronic kidney disease, stage 3. We will continue to closely monitor renal function in the lenard xt of diuretic therapy. Avoid nephrotoxic agents and limit contrast exposure. 3. Diabetes mellitus, type 2. Insulin sliding scale for reflexive coverage. Accu-Cheks before meal s and at bedtime. ADA diet. 4. History of coronary artery disease. Chronic and stable. Troponin I negative x1. See #1 for wor kup and management. Continue aspirin 81 mg p.o. daily. 5. Hypertension. Resume home antihypertensive regimen and monitor clinical response. 6. Prophylaxis. Sequential compression devices while in bed. Pepcid 20 mg p.o. b.i.d. Consider PT evaluation. 7. Code status is FULL. Surrogate medical decision maker is patient's son.
--- NOTE | 2018-01-15 14:28 | CON ---
DATE OF CONSULTATION: 01/15/2018 SERVICE: Pulmonary Medicine. REASON FOR CONSULTATION: Respiratory failure. HISTORY OF PRESENT ILLNESS: The patient is an 78-year-old white male with past medical history significant for a recent episode of dehydration. His blood pressure medications were adjusted and he was taken off of a diuretic. He did fantastic for a period of time, but over the last 2-3 weeks, he had increasing lower extremity swelling, dyspnea on exertion, and started having orthopnea. Ultimately, he presented to the emergency department with fluid overload. He was given a dose of Lasix and initiated on noninvasive ventilation. As soon as he got to the ICU, this was abruptly discontinued and the patient was put on 2 liter nasal cannula and he was breathing comfortably. He currently denies any shortness of breath or chest discomfort. He had no palpitations that preceded this event. He is coughing, but not bringing up any sputum. Otherwise, he is in his usual state of health. He denies any infectious prodrome that precipitated this presentation. PAST MEDICAL HISTORY: 1. Chronic kidney disease, stage 3. 2. Type 2 diabetes mellitus. 3. Coronary artery disease. 4. Hypertension. 5. Dyslipidemia. 6. Benign prostatic hypertrophy. 7. History of TIA. PAST SURGICAL HISTORY: 1. Cholecystectomy. 2. Appendectomy. 3. Vasectomy. ALLERGIES: No known drug allergies. MEDICATIONS: List of his inpatient medications were reviewed. No specific updates were made at this time. FAMILY HISTORY: Noncontributory. SOCIAL HISTORY: The patient is and lives with his son in [place]. He has a daughter that lives in [place]. He is retired. He has no exposure to chemicals, dust asbestos or tuberculosis. He uses a cane to walk around, but he holds it and he does not actually put it on the ground. REVIEW OF SYSTEMS: General, head, ears, eyes, nose, throat, cardiovascular, respiratory, GI, , musculoskeletal, neurologic and skin is negative except as mentioned in the HPI. PHYSICAL EXAMINATION: VITAL SIGNS: Afebrile. Pulse 103, blood pressure 146/77, respirations 22, saturation 92% on 4 liters nasal cannula. GENERAL: The patient is awake, alert, in no apparent distress. LUNGS: Excellent air entry. There is no prolonged expiratory phase, wheezing, rhonchi, or crackles present. HEART: Normal rate, regular. ABDOMEN: Soft, nontender, nondistended. Bowel sounds are positive. MUSCULOSKELETAL: No cyanosis or clubbing. There is 2+ pitting edema in the bilateral lower extremities. The family tells this is actually much improved. GENITOURINARY: No [place]. NEUROLOGIC: Grossly nonfocal. LABORATORY DATA: WBC 7.8, hemoglobin 12.0, platelets 204,000. INR 1.1. D- dimer 0.63. PH 7.43, pCO2 34, pO2 58. This was prior to initiation of BiPAP. Creatinine 1.77. Basic metabolic profile, and liver function studies are essentially unremarkable. BNP 207, cardiac enzymes negative x1. Lactate is negative. Urinalysis is unremarkable except for proteinuria and positive for blood, despite negative red blood cells. Influenza A and B is negative. IMAGING: CTA of the chest demonstrates bilateral pleural effusions, small mediastinal lymph nodes are evident. There is a near complete atelectasis of the left lower lobe. Infiltrate cannot entirely be excluded; however. I favor primarily atelectasis as the entirety of the left lower lobe is down and much of the right lower lobe is also down. There is interstitial edema and fullness throughout bilateral lung og[place]. Right ventricle is generous in size, but no reflux of contrast is noted into the inferior vena cava. Heart appears to have normal contour and dimensions. Ultrasound of bilateral lower extremities demonstrates no evidence of DVT. ASSESSMENT: 1. Acute hypoxic respiratory failure. 2. Bilateral pleural effusions. 3. Acute on chronic diastolic heart failure. 4. Chronic kidney disease, stage 3. 5. Type 2 diabetes mellitus. 6. Possible cognitive impairment. 7. Obstructive sleep apnea, suspected. DISCUSSION AND PLAN: We will diurese the patient until he returns to euvolemia. Continuous positive airway pressure will be continued on an as needed basis. We will keep the patient in the IMCU for 24 hours to make certain he maintains stability. I will drop him down to once daily dosing on the Lasix after this afternoons dose. We will try to maintain good blood pressure control. I will have Physical Therapy work with him. We will get him into a chair multiple times on a daily basis. My suspicion is that is a volume overload event associated with the kidneys. It does not appear to me that his heart has taken a significant hit though, though I do agree with echocardiogram which is currently pending. On discharge from the hospital, he will likely need to take Lasix at home on an as needed basis to prevent additional swelling moving forward. Pulmonary Critical Care will continue to follow while he remains in this location. He may benefit from an outpatient polysomnogram. 70 minutes have been devoted to this patient in various activities. I personally reviewed all imaging studies and laboratory data noted within this document. For fifty percent of this time, I was interacting with the patient at the bedside or coordinating care with the care team. For the remainder of the time I was immediately available to the patient in the hospital unit. BERNADETTE
[2018-01-15] MEDS: Furosemide 40 MG/4 ML VIAL SLOW IVP SCH (14:47)
[2018-01-15] MEDS ORDERED: ISOVUE-370 76%-LOCM 1 ML ONE (16:21)
--- NOTE | 2018-01-15 17:17 | CON ---
NEPHROLOGY CONSULTATION NOTE DATE OF CONSULTATION: 01/15/2018 CONSULTING PHYSICIAN: Mati Alberto D.O. REASON FOR CONSULTATION: Acute kidney injury. REASON FOR ADMISSION: Shortness of breath. HISTORY OF PRESENT ILLNESS: This is an 78-year-old white male with history of chronic kidney disease , type 2 diabetes on followup with me in the clinic. He has been seen here per family request and no fever or chills. Shortness of breath is better. No chest pain, no nausea, vomiting or diarrhea rep orted. No abdominal pain. The patient was admitted with shortness of breath and is being evaluated for congestive heart failure exacerbation, currently on Lasix. Nephrology for volume management and guidance. PAST MEDICAL HISTORY: Possible for chronic kidney disease, type 2 diabetes, coronary artery disease, hypertension, hyperlipidemia, TIA and BPH. PAST SURGICAL HISTORY: Cholecystectomy, appendectomy and vasectomy. HOME MEDICATIONS: Aspirin, Nexium, gabapentin, glipizide, Procardia XL, simvastatin and tamsulosin. ALLERGIES: No known drug allergies. FAMILY HISTORY: No history of kidney disease. REVIEW OF SYSTEMS: The following complete review of systems was negative, unless otherwise mentioned in the HPI or below: Constitutional: Weight loss or gain, ability to conduct usual activities. Skin: Rash, itching. Eyes: Double vision, pain. ENT/Mouth: Nose bleeding, neck stiffness, pain, tenderness. Cardiovascular: Palpitations, dyspnea on exertion, orthopnea. Respiratory: Shortness of breath, wheezing, cough, hemoptysis, fever or night sweats. Gastrointestinal: Poor appetite, abdominal pain, heartburn, nausea, vomiting, constipation, or diarr hea. Genitourinary: Urgency, frequency, dysuria, nocturia. Musculoskeletal: Pain, swelling. Neurologic/Psychiatric: Anxiety, depression. Allergy/Immunologic: Skin rash, bleeding tendency. SOCIAL HISTORY: No smoking, alcohol or illicit drug abuse. The patient is . PHYSICAL EXAMINATION: GENERAL: This is an obese elderly male in no apparent distress. VITAL SIGNS: Temperature 98.7, pulse 101, respiratory rate 18 and blood pressure 118/67. HEENT: Atraumatic and normocephalic. Oral mucosa is moist. NECK: Supple. CARDIOVASCULAR: S1 and S2. Rate and rhythm regular. RESPIRATORY: Reduced breath sounds at the bases, coarse breath sounds. GASTROINTESTINAL: Abdomen is soft. MUSCULOSKELETAL: 1+ edema. DERMATOLOGIC: No skin rash. NEUROLOGIC: Alert and awake. PSYCHIATRIC: Mood and affect normal. LABORATORY DATA: Potassium is 3.7, BUN is 23 and creatinine is 1.7. Hemoglobin is 12.7. ASSESSMENT AND PLAN: 1. Acute kidney injury, chronic kidney disease stage 3 secondary to cardiorenal syndrome. Agree wit h Lasix. 2. Cardiorenal syndrome, on Lasix. 3. Echo pending. 4. Edema. 5. Hypertension, stable. 6. Anemia, mild. 7. Hyponatremia, limit fluid intake. 8. Mild hypoalbuminemia with mild protein energy malnutrition. Overall, renal function is close to baseline. Agree with Lasix and monitor. We will monitor electro lytes and renal function closely. I will follow the case with you. Thank you for the consult.
[2018-01-15] MEDS: Atorvastatin Calcium 20 MG TAB PO SCH (20:50)
[2018-01-15] MEDS: Tamsulosin HCl 0.4 MG CAP PO SCH (20:51)
[2018-01-15] MEDS: HumaLOG 300 UNITS/3 ML VIAL SC PRN (21:01)
[2018-01-16 04:47] LABS: ALT (SGPT) 12 U/L (8-55); AST (SGOT) 20 U/L (5-34); Alkaline Phosphatase 51 U/L (40-150); Anion Gap 12 mmol/L (10-20); BUN (Urea Nitrogen) 27 mg/dL (8.4-25.7); Bilirubin, Total 0.3 mg/dL (0.2-1.2); Calc. Creatinine Clearance 45 mL/min (70-130); Calcium 8.1 mg/dL (7.8-10.44); Carbon Dioxide 25 mmol/L (23-31); Chloride 105 mmol/L (98-107); Estimated GFR-MDRD 34; Globulin 2.8 g/dL (2.4-3.5); Glucose 161 mg/dL (83-110); Magnesium 1.7 mg/dL (1.6-2.6); Potassium 3.7 mmol/L (3.5-5.1); Protein, Total 5.8 g/dL (5.8-8.1); Sodium 138 mmol/L (136-145)
[2018-01-16 05:12] LABS: Band 1 % (5-11); Hemoglobin 11.2 g/dL (14.0-18.0); Lymphocytes 16 % (21-51); MDiff Complete? YES; Mean Corpuscular HGB CONC 32.4 g/dL (32.0-36.0); Mean Corpuscular Hemoglobin 28.1 pg (27.0-31.0); Mean Corpuscular Volume 86.8 fl (80.0-94.0); Mean Platelet Volume 8.5 fL (7.4-10.4); Monocytes 4 % (0-10); Neutrophil 78 % (42-75); Ovalocytes SLIGHT = 2-5 cells (100X) (0-1/hpf); PLT Morphology Comment Appears Adequate; Platelet Count 194 thou/uL (130-400); RBC Distribution Width 15.1 % (11.5-14.5); Reactive Lymphocytes 1 % (0-10); Red Blood Cell (RBC) Count 3.98 mill/uL (4.70-6.10); White Blood Cell (WBC) Count 5.3 thou/uL (4.8-10.8)
[2018-01-16] MEDS: Furosemide 40 MG/4 ML VIAL SLOW IVP SCH ×2 (05:46→14:20)
[2018-01-16] MEDS: HumaLOG 300 UNITS/3 ML VIAL SC PRN ×4 (05:53→21:59)
[2018-01-16] MEDS: Lisinopril 2.5 MG TAB PO SCH (08:28)
[2018-01-16] MEDS: NIFEdipine XL 90 MG TAB PO SCH (08:28)
[2018-01-16] MEDS: glipiZIDE 5 MG TAB PO SCH (08:28)
[2018-01-16] MEDS: Gabapentin 300 MG CAP PO SCH (08:28)
[2018-01-16] MEDS: Aspirin 81 mg Enteric Coated Tablet PO SCH (08:28)
--- NOTE | 2018-01-16 09:18 | PRG ---
Patient Name: WILFRIDO GOTTI Date of service: 01/16/2018 Subjective: Patient was seen and examined at bedside and overnight events noted. Patient denies any shortness of breath or chest pain or palpitation. No history of nausea or vomiting or diarrhea or fever or chills or cramps. Objective: General: This is an elderly male in no apparent distress. Vital signs: Temperature 97, pulse 97, respirations 16, blood pressure 143/84. HEENT: Atraumatic, normocephalic. Oral mucosa is moist. Neck: Supple. Cardiovascular: S1 S2 heard. Rate and rhythm regular. Respiratory: Clear to auscultation. Gastrointestinal: Abdomen is soft. Musculoskeletal: No tenderness. No edema. Dermatologic: No skin rash. Neurologic: Alert and awake and oriented X3. No focal neurologic deficits. Moving all the extremit ies. Psychiatric: Mood and affect normal. LABORATORY DATA: Potassium is 3.7, BUN 27, creatinine is 1.9. ASSESSMENT AND PLAN: 1. Acute kidney injury on chronic kidney disease stage 3, slight bump in creatinine, most likely fro m diuresis. Continue diuresis. 2. Cardiorenal syndrome. Okay with the Lasix. 3. Edema. 4. Hypertension. 5. Hyponatremia, limit fluid intake. Continue on Lasix. We will monitor renal function. Avoid other nephrotoxins.
--- NOTE | 2018-01-16 09:40 | CON ---
DATE OF CONSULTATION: 01/15/2018 REASON FOR CONSULTATION: Shortness of breath, possible heart failure. HISTORY OF PRESENT ILLNESS: Mr. Khoury is a pleasant 78-year-old white gentleman who [facility] for increased shortness of breath and lower extremity edema. He was in the hospital about a m onth ago. At that point, he was diagnosed with dehydration as his kidney function had increased and his blood pressure was a little bit on the low side. He was given IV fluids and discharged home. Tn s creatinine improve after IV fluids. He tells me that since his discharge, he has been slowly getting slightly more swelling and edema. He has been noticing a little more swelling on his legs, as well as his abdominal girth has increased. He came in as he felt much more short of breath. He h ad not been able to lay flat on his back, as he would get really short of breath and would start [place]. He denies any chest pain, tightness, or pressure. PAST MEDICAL HISTORY: 1. Chronic kidney disease, stage 3. 2. Type 2 diabetes. 3. Hypertension. 4. Hyperlipidemia. 5. History of transient ischemic attacks in the past. 6. BPH. PAST SURGICAL HISTORY: 1. Cholecystectomy. 2. Appendectomy. 3. Vasectomy. OUTPATIENT MEDICATIONS: 1. Aspirin. 2. Nexium 40 mg. 3. Gabapentin. 4. Glipizide. 5. Procardia XL 90 mg a day. 6. Simvastatin 40 mg at bedtime. 7. Tamsulosin. ALLERGIES: No known drug allergies. FAMILY HISTORY: Noncontributory. SOCIAL HISTORY: Lives at home with his son in [place]. No alcohol, tobacco, or drugs. REVIEW OF SYSTEMS: A twelve-point review of systems was done and is all negative unless stated in hi story of present illness. PHYSICAL EXAMINATION: VITAL SIGNS: Temperature 97.7, pulse of 98, respiratory rate of 18, satting 95% on 3.5 liters, blood pressure 146/77. GENERAL: Awake, alert, oriented x3, in mild respiratory distress. He is sitting up about almost 90 degrees. Cannot lay any flat as he gets more short-winded. HEENT: Normocephalic, atraumatic. NECK: Supple. JVD at about 50 cm of water. LUNGS: Have mild crackles at the bases, but reduced breath sounds bilaterally. CARDIOVASCULAR: Distant heart sounds. S1, S2. No S3, S4. ABDOMEN: Soft, but increased abdominal girth. EXTREMITIES: 2+ edema. SKIN: Warm and dry. LABORATORY WORK: Reviewed. White count of 7.8, hemoglobin of 12, hematocrit of 37, platelet count o f 204. Coags were reviewed. ABG was reviewed. Chemistry was reviewed. Creatinine was 1.77, which is closer to baseline. Normal troponin. BNP was 207. UA was unremarkable. Chest x-ray showed bilateral lower lobe infiltrates with adjacent pleural effusions. CTA of the ches t showed no evidence of pulmonary embolism. There is bilateral pleural effusion with adjacent atelec tasis versus consolidation. There is a small pericardial effusion and mediastinal lymph nodes. EKG was reviewed. ASSESSMENT: 1. Acute on chronic systolic versus diastolic heart failure. 2. Acute volume overload. 3. Acute kidney injury. 4. Left bundle branch block. PLAN: 1. Continue IV diuresis for now. 2. We will get an echocardiogram to assess LV function and valvular structures. This will guide our therapy in the next few days. 3. Continue other medications, especially for blood pressure control. Thank you for letting us participate in the care of your patient. We will follow.
--- NOTE | 2018-01-16 12:15 | PDOC.PN ---
- Subjective Encounter Start Date: 01/16/18 Encounter Start Time: 12:30 Subjective: f/u for new-onset CHF on Lasix currently. Diuresing appropriately and -: breathing much better. - Objective Resuscitation Status: Resuscitation Status FULL:Full Resuscitation MAR Reviewed: Yes Vital Signs & Weight: Vital Signs (12 hours) Temp Pulse Resp BP Pulse Ox 01/16/18 11:00 98.9 F 100 20 130/68 95 01/16/18 10:00 93 18 135/64 95 01/16/18 09:10 101 H 18 99 01/16/18 08:28 97 01/16/18 07:06 99.7 F H 97 16 100 01/16/18 07:00 98.9 F 96 22 H 143/84 H 100 01/16/18 03:51 99.7 F H 97 16 147/80 H 98 Weight Weight 224 lb 11.2 oz I&O: 01/15/18 01/16/18 01/17/18 06:59 06:59 06:59 Intake Total 870 240 Output Total 3000 400 Balance -2130 -160 Result Diagrams: 01/16/18 04:18 01/16/18 04:18 Additional Labs: Accuchecks 01/16/18 01/16/18 01/15/18 10:37 05:41 20:56 POC Glucose 207 H 154 H 247 H 01/15/18 16:35 POC Glucose 206 H Microbiology 01/15/18 06:59 Nasal swab Influenza Types A,B Direct EIA - Final 01/15/18 Unknown Urine voided Urine Culture - Preliminary NO GROWTH AT 24 HOURS 01/15/18 07:37 Venous blood - Right Arm Blood Culture - Preliminary Specimen has been received and culture in progress. No Growth to date. 01/15/18 06:59 Venous blood - Right Arm Blood Culture - Preliminary Specimen has been received and culture in progress. No Growth to date. Laboratory Tests 01/13/18 01/15/18 01/15/18 07:50 05:24 05:24 Hgb 12.0 L Creatinine 1.62 H 1.77 H Radiology Reviewed by me: Yes (2D echo - pending) EKG Reviewed by me: Yes (Tele - SR with KAYLYN) Phys Exam - Physical Examination Constitutional: NAD HEENT: PERRLA, oral pharynx no lesions Neck: no JVD, supple few basilar crackles Cardiovascular: RRR Gastrointestinal: soft, non-tender, no distention, positive bowel sounds Musculoskeletal: pulses present, edema present Neurological: normal sensation, moves all 4 limbs Psychiatric: A&O x 3 Skin: normal turgor, cap refill <2 seconds Dx/Plan (1) Acute CHF Code(s): I50.9 - HEART FAILURE, UNSPECIFIED Status: Acute Qualifiers: Heart failure type: unspecified Qualified Code(s): I50.9 - Heart failure, unspecified Comment: Improved, await 2D echo results, continue Lasix 40mg IV q12h, appreciate Cardiology assistance (2) CKD (chronic kidney disease), stage III Code(s): N18.3 - CHRONIC KIDNEY DISEASE, STAGE 3 (MODERATE) Status: Chronic Comment: Avoid nephrotoxic meds and contrast media, appreciate Nephrology assistance (3) DM II (diabetes mellitus, type II), controlled Code(s): E11.9 - TYPE 2 DIABETES MELLITUS WITHOUT COMPLICATIONS Status: Chronic Comment: ISS, Glipizide, serial accuchecks (4) CAD (coronary artery disease) Code(s): I25.10 - ATHSCL HEART DISEASE OF [place] CORONARY ARTERY W/O ANG PCTRS Status: Chronic Comment: Chronic and stable, continue ASA, Lipitor (5) HTN (hypertension) Code(s): I10 - ESSENTIAL (PRIMARY) HYPERTENSION Status: Chronic Qualifiers: Hypertension type: essential hypertension Qualified Code(s): I10 - Essential (primary) hypertension Comment: Continue Nifedipine and Lisinopril - Plan plan discussed w/ family, PT/OT, social director, out of bed/ambulate, DVT proph w/SCDs Stable overall -: Continue Lasix 40mg IV q12h -: 2D echo pending -: Continue ASA 81mg daily -: AM lab: BMP, Mg++ * .
--- NOTE | 2018-01-16 15:48 | PRG ---
DATE OF SERVICE: 01/16/2018 SERVICE: Pulmonary Medicine. INTERVAL HISTORY: The patient is doing fine from a respiratory standpoint. He denies any current fe vers, chills, nausea or vomiting. He is breathing comfortably. He has been weaned off of oxygen. O therwise, there has been no interval change to his condition. Echocardiogram has been performed. Ba sed on preliminary results, it looks as though his ejection fraction is okay. He has got mild diasto lic dysfunction. He has got no significant severe lesion so far as I can tell. PHYSICAL EXAMINATION: VITAL SIGNS: Afebrile, pulse 100, blood pressure 130/68, respirations 20, saturation 95% on room air . GENERAL: The patient is awake, alert, in no apparent distress. LUNGS: Much improved air entry with no prolonged expiratory phase. Dependent crackles are improved, but still present. HEART: Normal rate, regular. ABDOMEN: Soft, nontender, nondistended. Bowel sounds are positive. MUSCULOSKELETAL: No cyanosis or clubbing. There is 2+ pitting in the bilateral lower extremities. NEUROLOGIC: Grossly nonfocal. LABORATORY DATA: WBC 5.3, hemoglobin 11.2, platelets 194,000. Bands are now 1%. Creatinine 1.92, w hich is gently up trending. BUN 27, bicarbonate 25, potassium 3.7. Liver function studies are essen tially unremarkable. Urinalysis is unremarkable. Blood cultures x2, urine culture and influenza are unremarkable. ASSESSMENT: 1. Acute hypoxic respiratory failure, resolved. 2. Bilateral pleural effusions, likely secondary to volume overload/anasarca state. 3. Acute on chronic diastolic heart failure. 4. Chronic kidney disease, stage 3. 5. Type 2 diabetes mellitus. 6. Obstructive sleep apnea, suspected. PLAN: We will continue to diurese the patient until he arrives to euvolemia. Pulmonary Critical Car e will continue to follow. From my perspective; however, he is stable for transition to the floor. He will need an outpatient chest x-ray in 2 weeks. We will screen him for obstructive sleep apnea an d pursue a polysomnogram at that time. He will follow up with me in the outpatient setting. Dr. Jerica elena will cover through the weekend, but I will resume care on Friday if he is still here.
--- NOTE | 2018-01-16 15:59 | PDOC.CTH ---
Cardiology Progress Note - Subjective He is doing better. He got abut 3L out since yesterday. His breathing is better. - Objective Vital Signs Temp Pulse Resp BP Pulse Ox 01/16/18 15:12 98.7 F 92 21 H 137/67 94 L 01/16/18 12:25 94 L 01/16/18 11:00 98.9 F 100 20 130/68 95 01/16/18 10:00 93 18 135/64 95 01/16/18 09:10 101 H 18 99 01/16/18 08:28 97 01/16/18 07:06 99.7 F H 97 16 100 01/16/18 07:00 98.9 F 96 22 H 143/84 H 100 Weight 224 lb 11.2 oz 01/15/18 01/16/18 01/17/18 06:59 06:59 06:59 Intake Total 870 240 Output Total 3000 400 Balance -2130 -160 - Physical Examination General/Neuro: alert & oriented x3, NAD Neck: no JVD present Lungs: unlabored respirations, other: (reduced breath sounds. ) Heart: RRR Abdomen: NT/ND Extremities: + edema B (2+) - Telemetry Telemetry Rhythm: NSR, BBB - Labs Result Diagrams: 01/16/18 04:18 01/16/18 04:18 Troponin/CKMB CK-MB (CK-2) 2.8 ng/mL (0-6.6) 01/15/18 05:24 Troponin I 0.016 ng/mL (< 0.028) 01/15/18 05:24 - Assessment/Plan 1. Acute on chronic systolic vrs diastolic heart fialure 2. DORIS 3. LBBB PLAN: - Continue IV diuresis. - Echo pending today.
[2018-01-16] MEDS: Tamsulosin HCl 0.4 MG CAP PO SCH (21:24)
[2018-01-16] MEDS: Atorvastatin Calcium 20 MG TAB PO SCH (21:25)
[2018-01-17] MEDS: Furosemide 40 MG/4 ML VIAL SLOW IVP SCH ×2 (05:22→13:53)
[2018-01-17 05:35] LABS: Anion Gap 12 mmol/L (10-20); BUN (Urea Nitrogen) 29 mg/dL (8.4-25.7); Calc. Creatinine Clearance 47 mL/min (70-130); Calcium 8.3 mg/dL (7.8-10.44); Carbon Dioxide 25 mmol/L (23-31); Chloride 105 mmol/L (98-107); Estimated GFR-MDRD 36; Glucose 120 mg/dL (83-110); Magnesium 1.9 mg/dL (1.6-2.6); Potassium 3.8 mmol/L (3.5-5.1); Sodium 138 mmol/L (136-145)
[2018-01-17] MEDS: Gabapentin 300 MG CAP PO SCH (08:09)
[2018-01-17] MEDS: Aspirin 81 mg Enteric Coated Tablet PO SCH (08:09)
[2018-01-17] MEDS: NIFEdipine XL 90 MG TAB PO SCH (08:09)
[2018-01-17] MEDS: glipiZIDE 5 MG TAB PO SCH (08:09)
[2018-01-17] MEDS: Lisinopril 2.5 MG TAB PO SCH (08:09)
[2018-01-17] MEDS: HumaLOG 300 UNITS/3 ML VIAL SC PRN (11:00)
--- NOTE | 2018-01-17 14:37 | PRG ---
DATE OF SERVICE: 01/17/2018 SUBJECTIVE: Short of breath. OBJECTIVE: VITAL SIGNS: Blood pressure 166/84, sats are 90% on room air, respiration rate 18, temperature 98. I's and O's 1244 in and 3075 out. CHEST: No wheezing or crackles. CARDIAC: Normal S1, S2, no gallops, rubs. ABDOMEN: Soft, no masses. LABORATORY DATA: Creatinine 1.8. IMPRESSION: 1. Renal failure. 2. Congestive heart failure. 3. Sleep apnea. 4. Diastolic dysfunction. 5. Morbid obesity. PLAN: Continue present cardiac care, PT and supportive care. We will follow.
--- NOTE | 2018-01-17 14:42 | PDOC.PN ---
- Subjective Encounter Start Date: 01/17/18 Encounter Start Time: 11:00 Patient is seen today, alert and oriented. No other Concerns noted. He is breathing on Room Air, and is diuresing well. - Objective Resuscitation Status: Resuscitation Status FULL:Full Resuscitation MAR Reviewed: Yes Vital Signs & Weight: Vital Signs (12 hours) Temp Pulse Pulse Pulse Resp BP BP 01/17/18 13:53 85 18 01/17/18 13:38 85 85 134/66 137/67 01/17/18 10:59 97.9 F 91 18 01/17/18 08:09 93 01/17/18 07:25 98.9 F 93 20 01/17/18 07:06 98.9 F 93 20 01/17/18 06:52 01/17/18 03:10 99.0 F 94 20 BP Pulse Ox Pulse Ox Pulse Ox 01/17/18 13:53 137/67 94 L 01/17/18 13:38 95 94 L 01/17/18 10:59 143/70 H 96 01/17/18 08:09 01/17/18 07:25 98 01/17/18 07:06 166/84 H 98 01/17/18 06:52 100 01/17/18 03:10 163/84 H 97 Weight Weight 218 lb 14.4 oz I&O: 01/16/18 01/17/18 01/18/18 06:59 06:59 06:59 Intake Total 870 1244 600 Output Total 3000 3075 Balance -2130 -1831 600 Result Diagrams: 01/16/18 04:18 01/17/18 04:49 Additional Labs: Accuchecks 01/17/18 01/17/18 01/16/18 10:32 06:07 20:47 POC Glucose 271 H 118 H 208 H 01/16/18 16:29 POC Glucose 170 H Radiology Reviewed by me: Yes Phys Exam - Physical Examination HEENT: PERRLA, moist MMs Neck: no nodes, no JVD Respiratory: wheezing present Cardiovascular: RRR, no significant murmur Gastrointestinal: soft, non-tender Musculoskeletal: pulses present, edema present Neurological: non-focal, normal sensation Lymphatic: no nodes Skin: no rash, normal turgor Dx/Plan (1) Bacteremia due to Gram-positive bacteria Code(s): R78.81 - BACTEREMIA Status: Acute Comment: Will repeat Blood Cultures, pt is on IV antibiotics. (2) Acute CHF Code(s): I50.9 - HEART FAILURE, UNSPECIFIED Status: Acute Qualifiers: Heart failure type: unspecified Qualified Code(s): I50.9 - Heart failure, unspecified Comment: Improved, Echo showed good EF, continue Lasix 40mg IV q12h, appreciate Cardiology assistance (3) CAD (coronary artery disease) Code(s): I25.10 - ATHSCL HEART DISEASE OF [place] CORONARY ARTERY W/O ANG PCTRS Status: Chronic Comment: Chronic and stable, continue ASA, Lipitor (4) CKD (chronic kidney disease), stage III Code(s): N18.3 - CHRONIC KIDNEY DISEASE, STAGE 3 (MODERATE) Status: Chronic Comment: Avoid nephrotoxic meds and contrast media, appreciate Nephrology assistance (5) DM II (diabetes mellitus, type II), controlled Code(s): E11.9 - TYPE 2 DIABETES MELLITUS WITHOUT COMPLICATIONS Status: Chronic Comment: ISS, Glipizide, serial accuchecks (6) HTN (hypertension) Code(s): I10 - ESSENTIAL (PRIMARY) HYPERTENSION Status: Chronic Qualifiers: Hypertension type: essential hypertension Qualified Code(s): I10 - Essential (primary) hypertension Comment: Continue Nifedipine and Lisinopril (7) Renal failure, acute Status: Acute - Plan cont current plan of care, continue antibiotics, PT/OT, respiratory therapy, incentive spirometry, out of bed/ambulate, DVT proph w/lovenox * . - Discharge Day Encounter end time: 11:35 Review of Systems - Review of Systems Constitutional: negative: fever, chills, sweats, weakness, malaise, other Eyes: negative: Pain, Vision Change, Conjunctivae Inflammation, Eyelid Inflammation, Redness, Other ENT: negative: Ear Pain, Ear Discharge, Nose Pain, Nose Discharge, Nose Congestion, Mouth Pain, Mouth Swelling, Throat Pain, Throat Swelling, Other Respiratory: Shortness of Breath, SOB with Excertion, Wheezing Cardiovascular: orthopnea, edema. negative: chest pain, palpitations, paroxysmal nocturnal dyspnea, light headedness, other Gastrointestinal: negative: Nausea, Vomiting, Abdominal Pain, Diarrhea, Constipation, Melena, Hematochezia, Other Genitourinary: negative: Dysuria, Frequency, Incontinence, Hematuria, Retention , Other Musculoskeletal: negative: Neck Pain, Shoulder Pain, Arm Pain, Back Pain, Hand Pain, Leg Pain, Foot Pain, Other Skin: negative: Rash, Lesions, Krishna, Bruising, Other - Medications/Allergies Allergies/Adverse Reactions: Allergies Allergy/AdvReac Type Severity Reaction Status Date / Time No Known Allergies Allergy Verified 12/20/17 04:15 Medications: Current Medications Acetaminophen (Tylenol) 1,000 mg PO Q6H PRN PRN Reason: Headache/Fever or Mild Pain Aspirin (Ecotrin) 81 mg PO DAILY [facility] Last Admin: 01/17/18 08:09 Dose: 81 mg Atorvastatin Calcium (Lipitor) 20 mg PO HS [facility] Last Admin: 01/16/18 21:25 Dose: 20 mg Clonidine (Catapres) 0.1 mg PO Q4H PRN PRN Reason: Systolic BP > 180 Dextrose/Water (Dextrose 50%) 25 gm SLOW IVP PRN PRN PRN Reason: Hypoglycemia Furosemide (Lasix) 40 mg SLOW IVP 0600,1400 [facility] Last Admin: 01/17/18 13:53 Dose: 40 mg Gabapentin (Neurontin) 300 mg PO DAILY [facility] Last Admin: 01/17/18 08:09 Dose: 300 mg Glipizide (Glucotrol) 5 mg PO DAILY-AC [facility] Last Admin: 01/17/18 08:09 Dose: 5 mg Glucagon (Glucagon) 1 mg IM PRN PRN PRN Reason: Hypoglycemia Hydralazine HCl (Apresoline) 10 mg SLOW IVP Q4H PRN PRN Reason: Systolic BP > 180 Dextrose/Water (D5w) 1,000 mls @ 0 mls/hr IV .Q0M PRN; As Directed PRN Reason: Hypoglycemia Insulin Human Lispro (Humalog) 0 units SC .MODERATE SLIDING SC PRN PRN Reason: Moderate Correctional Scale Last Admin: 01/17/18 11:00 Dose: 6 unit Insulin Human Lispro (Humalog) 0 units SC .BEDTIME SLIDING SC PRN PRN Reason: Bedtime Correctional Scale Last Admin: 01/16/18 21:59 Dose: 2 unit Lisinopril (Zestril) 2.5 mg PO DAILY [facility] Last Admin: 01/17/18 08:09 Dose: 2.5 mg Nifedipine (Procardia Xl) 90 mg PO DAILY [facility] Last Admin: 01/17/18 08:09 Dose: 90 mg Ondansetron HCl (Zofran Odt) 4 mg PO Q6H PRN PRN Reason: Nausea/Vomiting Ondansetron HCl (Zofran) 4 mg IVP Q6H PRN PRN Reason: Nausea/Vomiting Tamsulosin HCl (Flomax) 0.4 mg PO QPM [facility] Last Admin: 01/16/18 21:24 Dose: 0.4 mg
[2018-01-17 15:22] LABS: #Eosinphils 0.1 thou/uL (0.0-0.7); #Lymphocytes 0.9 thou/uL (1.20-3.40); #Monocytes 0.4 thou/uL (0.11-0.59); #Neutrophils 4.3 thou/uL (1.40-6.50); %Basophils 0.2 % (0.0-1.0); %Eosinophils 1.6 % (0.0-10.0); %Lymphocytes 15.9 % (21.0-51.0); %Monocytes 7.1 % (0.0-10.0); %Neutrophils 75.2 % (42.0-75.0); Hemoglobin 13.1 g/dL (14.0-18.0); Mean Corpuscular HGB CONC 32.5 g/dL (32.0-36.0); Mean Platelet Volume 8.8 fL (7.4-10.4); Platelet Count 232 thou/uL (130-400); RBC Distribution Width 15.3 % (11.5-14.5); White Blood Cell (WBC) Count 5.7 thou/uL (4.8-10.8)
[2018-01-17 15:33] LABS: Anion Gap 16 mmol/L (10-20); BUN (Urea Nitrogen) 34 mg/dL (8.4-25.7); Calc. Creatinine Clearance 40 mL/min (70-130); Calcium 8.9 mg/dL (7.8-10.44); Carbon Dioxide 24 mmol/L (23-31); Chloride 101 mmol/L (98-107); Estimated GFR-MDRD 31; Glucose 176 mg/dL (83-110); Potassium 3.4 mmol/L (3.5-5.1); Sodium 138 mmol/L (136-145)
[2018-01-17] MEDS: Vancomycin HCl 1 GM in Premix Bag 1 BAG IVPB SCH (17:04)
--- NOTE | 2018-01-17 17:04 | PDOC.CTH ---
Cardiology Progress Note - Subjective Pt. seen and eval. He is feeling better and able to lie flat without SOB.He denies any cardiac complaints. - Objective Vital Signs Temp Pulse Pulse Pulse Resp BP BP 01/17/18 15:00 98.6 F 85 22 H 01/17/18 13:53 85 18 01/17/18 13:38 85 85 134/66 137/67 01/17/18 10:59 97.9 F 91 18 01/17/18 08:09 93 01/17/18 07:25 98.9 F 93 20 01/17/18 07:06 98.9 F 93 20 01/17/18 06:52 BP Pulse Ox Pulse Ox Pulse Ox 01/17/18 15:00 136/70 91 L 01/17/18 13:53 137/67 94 L 01/17/18 13:38 95 94 L 01/17/18 10:59 143/70 H 96 01/17/18 08:09 01/17/18 07:25 98 01/17/18 07:06 166/84 H 98 01/17/18 06:52 100 Weight 218 lb 14.4 oz 01/16/18 01/17/18 01/18/18 06:59 06:59 06:59 Intake Total 870 1244 604 Output Total 3000 3075 Balance -2130 -1831 604 - Physical Examination General/Neuro: alert & oriented x3 Neck: carotid US brisk Lungs: CTA Heart: RRR Abdomen: NT/ND Extremities: other: (minimal ankle edema.) - Telemetry Telemetry Rhythm: NSR - Labs Result Diagrams: 01/17/18 15:00 01/17/18 15:00 Troponin/CKMB CK-MB (CK-2) 2.8 ng/mL (0-6.6) 01/15/18 05:24 Troponin I 0.016 ng/mL (< 0.028) 01/15/18 05:24 - Assessment/Plan 1. Acute on chronic systolic vrs diastolic heart fialure. Continue diuresis. 2. DORIS 3. LBBB Review of Systems - Review of Systems EENTM: reports: no symptoms reported Respiratory: reports: no symptoms reported Cardiac (ROS): reports: no symptoms reported ABD/GI: reports: no symptoms reported Musculoskeletal: reports: no symptoms reported
--- NOTE | 2018-01-17 17:20 | PRG ---
DATE OF SERVICE: 01/17/2018 SUBJECTIVE: Patient was seen and examined at bedside and overnight events noted. Patient denies any shortness of breath or chest pain or palpitation. No history of nausea or vomiting or diarrhea or fever or chills or cramps. OBJECTIVE: General: This is a well-built male in no apparent distress. Vital signs: Temperature 97.9, pulse 81, respiratory rate 18, and blood pressure 133/67. HEENT: Atraumatic, normocephalic. Oral mucosa is moist. Neck: Supple. Cardiovascular: S1, S2 heard. Rate and rhythm regular. Respiratory: Clear to auscultation. Gastrointestinal: Abdomen is soft. Musculoskeletal: No tenderness. No edema. Dermatologic: No skin rash. Neurologic: Alert and awake and oriented x3. No focal neurologic deficits. Moving all the extremit ies. Psychiatric: Mood and affect normal. LABORATORY DATA: Potassium is 3.8, BUN is 29, creatinine is 1.8. ASSESSMENT AND PLAN: 1. Acute kidney injury on chronic kidney disease. Renal function is stable and slightly better. 2. Cardiorenal syndrome. Continue Lasix. 3. Edema. 4. Hypertension. 5. Hyponatremia. 6. Overall, renal function is stable. We will monitor.
[2018-01-17] MEDS: Tamsulosin HCl 0.4 MG CAP PO SCH (20:41)
[2018-01-17] MEDS: Atorvastatin Calcium 20 MG TAB PO SCH (20:41)
[2018-01-18] MEDS: Vancomycin HCl 1 GM in Premix Bag 1 BAG IVPB SCH ×2 (05:37→17:23)
[2018-01-18] MEDS: Furosemide 40 MG/4 ML VIAL SLOW IVP SCH ×2 (05:37→15:02)
[2018-01-18] MEDS: Lisinopril 2.5 MG TAB PO SCH (08:40)
[2018-01-18] MEDS: glipiZIDE 5 MG TAB PO SCH (08:40)
[2018-01-18] MEDS: NIFEdipine XL 90 MG TAB PO SCH (08:41)
[2018-01-18] MEDS: Aspirin 81 mg Enteric Coated Tablet PO SCH (08:41)
[2018-01-18] MEDS: Gabapentin 300 MG CAP PO SCH (08:41)
[2018-01-18] MEDS: HumaLOG 300 UNITS/3 ML VIAL SC PRN (11:09)
[2018-01-18] MEDS ORDERED: Potassium Chloride 20 MEQ TAB PO SCH (12:00)
--- NOTE | 2018-01-18 14:01 | PDOC.PN ---
- Subjective Encounter Start Date: 01/18/18 Encounter Start Time: 11:00 Joi is seen today, too drowsy, discussed with Daughter at Bedside, pt is Able to sleep Flat, with no orthopnea. - Objective Resuscitation Status: Resuscitation Status FULL:Full Resuscitation MAR Reviewed: Yes Vital Signs & Weight: Vital Signs (12 hours) Temp Pulse Pulse Pulse Resp BP BP 01/18/18 12:29 87 83 135/64 01/18/18 11:12 98.4 F 88 14 01/18/18 08:40 77 154/76 H 01/18/18 08:00 98.7 F 80 16 01/18/18 07:15 98.7 F 80 16 01/18/18 03:49 98.8 F 90 17 BP BP Pulse Ox Pulse Ox Pulse Ox 01/18/18 12:29 126/59 L 96 96 01/18/18 11:12 154/83 H 100 01/18/18 08:40 01/18/18 08:00 95 01/18/18 07:15 154/76 H 95 01/18/18 03:49 161/85 H 98 Weight Weight 214 lb 11.2 oz I&O: 01/17/18 01/18/18 01/19/18 06:59 06:59 06:59 Intake Total 1244 2464 Output Total 3075 2000 200 Balance -1831 464 -200 Result Diagrams: 01/17/18 15:00 01/17/18 15:00 Additional Labs: Accuchecks 01/18/18 01/18/18 01/17/18 10:23 05:33 20:13 POC Glucose 230 H 128 H 191 H 01/17/18 16:34 POC Glucose 158 H Radiology Reviewed by me: Yes Phys Exam - Physical Examination HEENT: PERRLA, moist MMs Neck: no nodes, no JVD Respiratory: no wheezing, no rales Cardiovascular: RRR, no significant murmur Gastrointestinal: soft, non-tender Musculoskeletal: no edema, pulses present Neurological: non-focal, normal sensation Lymphatic: no nodes Psychiatric: normal affect, A&O x 3 Dx/Plan (1) Bacteremia due to Gram-positive bacteria Code(s): R78.81 - BACTEREMIA Status: Acute Comment: Will repeat Blood Cultures, pt is on IV antibiotics. Julian. (2) Acute CHF Code(s): I50.9 - HEART FAILURE, UNSPECIFIED Status: Acute Qualifiers: Heart failure type: unspecified Qualified Code(s): I50.9 - Heart failure, unspecified Comment: Improved, Echo showed good EF, continue Lasix 40mg IV q24H, appreciate Cardiology assistance, Will check renal fucntions today. (3) CAD (coronary artery disease) Code(s): I25.10 - ATHSCL HEART DISEASE OF [place] CORONARY ARTERY W/O ANG PCTRS Status: Chronic Comment: Chronic and stable, continue ASA, Lipitor (4) CKD (chronic kidney disease), stage III Code(s): N18.3 - CHRONIC KIDNEY DISEASE, STAGE 3 (MODERATE) Status: Chronic Comment: Avoid nephrotoxic meds and contrast media, appreciate Nephrology assistance (5) DM II (diabetes mellitus, type II), controlled Code(s): E11.9 - TYPE 2 DIABETES MELLITUS WITHOUT COMPLICATIONS Status: Chronic Comment: ISS, Glipizide, serial accuchecks (6) HTN (hypertension) Code(s): I10 - ESSENTIAL (PRIMARY) HYPERTENSION Status: Chronic Qualifiers: Hypertension type: essential hypertension Qualified Code(s): I10 - Essential (primary) hypertension Comment: Continue Nifedipine and Lisinopril (7) Renal failure, acute Status: Acute - Plan cont current plan of care, plan discussed w/ family, PT/OT, pediatric social worker, respiratory therapy, incentive spirometry, out of bed/ambulate, DVT proph w/ lovenox * . - Discharge Day Encounter end time: 11:35 Review of Systems - Review of Systems Eyes: negative: Pain, Vision Change, Conjunctivae Inflammation, Eyelid Inflammation, Redness, Other ENT: negative: Ear Pain, Ear Discharge, Nose Pain, Nose Discharge, Nose Congestion, Mouth Pain, Mouth Swelling, Throat Pain, Throat Swelling, Other Respiratory: Cough, Shortness of Breath Cardiovascular: edema. negative: chest pain, palpitations, orthopnea, paroxysmal nocturnal dyspnea, light headedness, other Gastrointestinal: negative: Nausea, Vomiting, Abdominal Pain, Diarrhea, Constipation, Melena, Hematochezia, Other Genitourinary: negative: Dysuria, Frequency, Incontinence, Hematuria, Retention , Other Musculoskeletal: negative: Neck Pain, Shoulder Pain, Arm Pain, Back Pain, Hand Pain, Leg Pain, Foot Pain, Other Skin: negative: Rash, Lesions, Krishna, Bruising, Other - Medications/Allergies Allergies/Adverse Reactions: Allergies Allergy/AdvReac Type Severity Reaction Status Date / Time No Known Allergies Allergy Verified 12/20/17 04:15 Medications: Current Medications Acetaminophen (Tylenol) 1,000 mg PO Q6H PRN PRN Reason: Headache/Fever or Mild Pain Aspirin (Ecotrin) 81 mg PO DAILY [facility] Last Admin: 01/18/18 08:41 Dose: 81 mg Atorvastatin Calcium (Lipitor) 20 mg PO HS [facility] Last Admin: 01/17/18 20:41 Dose: 20 mg Clonidine (Catapres) 0.1 mg PO Q4H PRN PRN Reason: Systolic BP > 180 Dextrose/Water (Dextrose 50%) 25 gm SLOW IVP PRN PRN PRN Reason: Hypoglycemia Furosemide (Lasix) 40 mg SLOW IVP 0600,1400 [facility] Last Admin: 01/18/18 05:37 Dose: 40 mg Gabapentin (Neurontin) 300 mg PO DAILY [facility] Last Admin: 01/18/18 08:41 Dose: 300 mg Glipizide (Glucotrol) 5 mg PO DAILY[facility] Last Admin: 01/18/18 08:40 Dose: 5 mg Glucagon (Glucagon) 1 mg IM PRN PRN PRN Reason: Hypoglycemia Hydralazine HCl (Apresoline) 10 mg SLOW IVP Q4H PRN PRN Reason: Systolic BP > 180 Dextrose/Water (D5w) 1,000 mls @ 0 mls/hr IV .Q0M PRN; As Directed PRN Reason: Hypoglycemia Levofloxacin 500 mg/ Device 100 mls @ 100 mls/hr IVPB 1600 [facility] Last Admin: 01/17/18 16:05 Dose: 100 mls Vancomycin HCl 1 gm/ Device 200 mls @ 133.333 mls/hr IVPB 0500,1700 [facility] Last Admin: 01/18/18 05:37 Dose: 200 mls Insulin Human Lispro (Humalog) 0 units SC .MODERATE SLIDING SC PRN PRN Reason: Moderate Correctional Scale Last Admin: 01/18/18 11:09 Dose: 4 unit Insulin Human Lispro (Humalog) 0 units SC .BEDTIME SLIDING SC PRN PRN Reason: Bedtime Correctional Scale Last Admin: 01/16/18 21:59 Dose: 2 unit Lisinopril (Zestril) 2.5 mg PO DAILY [facility] Last Admin: 01/18/18 08:40 Dose: 2.5 mg Nifedipine (Procardia Xl) 90 mg PO DAILY [facility] Last Admin: 01/18/18 08:41 Dose: 90 mg Ondansetron HCl (Zofran Odt) 4 mg PO Q6H PRN PRN Reason: Nausea/Vomiting Ondansetron HCl (Zofran) 4 mg IVP Q6H PRN PRN Reason: Nausea/Vomiting Tamsulosin HCl (Flomax) 0.4 mg PO QPM [facility] Last Admin: 01/17/18 20:41 Dose: 0.4 mg
--- NOTE | 2018-01-18 14:21 | PRG ---
DATE OF SERVICE: 01/18/2018 SUBJECTIVE: Patient was seen and examined at bedside and overnight events noted. Patient denies any shortness of breath or chest pain or palpitation. No history of nausea or vomiting or diarrhea or f ever or chills or cramps. OBJECTIVE: GENERAL: This is a well-built male in no apparent distress. VITAL SIGNS: Temperature is 94, pulse 80, respiratory rate 14 and blood pressure 154/83. HEENT: Atraumatic, normocephalic. Oral mucosa is moist. NECK: Supple. CARDIOVASCULAR: S1, S2 heard. Rate and rhythm regular. RESPIRATORY: Clear to auscultation. GASTROINTESTINAL: Abdomen is soft. MUSCULOSKELETAL: No tenderness. No edema. DERMATOLOGIC: No skin rash. NEUROLOGIC: Alert and awake and oriented x3. No focal neurologic deficits. Moving all the extremit ies. PSYCHIATRIC: Mood and affect normal. LABORATORY DATA: Labs done yesterday evening showed potassium is 3.4, BUN is 34 and creatinine is 2. 07. ASSESSMENT AND PLAN: 1. Acute kidney injury on chronic kidney disease with fluctuations secondary to diuresis. Overall, stable. We will monitor. 2. Hypokalemia, replace. 3. Edema, on Lasix. 4. Hyponatremia, limit fluid. 5. Hypertension, stable and monitor. 6. Continue Lasix and monitor renal function. Currently, on lisinopril. We will give one dose of p otassium today. We will follow.
[2018-01-18 14:26] LABS: #Eosinphils 0.2 thou/uL (0.0-0.7); #Lymphocytes 0.9 thou/uL (1.20-3.40); #Monocytes 0.5 thou/uL (0.11-0.59); #Neutrophils 4.7 thou/uL (1.40-6.50); %Basophils 0.5 % (0.0-1.0); %Eosinophils 3.9 % (0.0-10.0); %Lymphocytes 13.7 % (21.0-51.0); %Monocytes 7.5 % (0.0-10.0); %Neutrophils 74.4 % (42.0-75.0); Mean Corpuscular HGB CONC 32.2 g/dL (32.0-36.0); Mean Corpuscular Hemoglobin 27.2 pg (27.0-31.0); Mean Corpuscular Volume 84.6 fl (80.0-94.0); Platelet Count 238 thou/uL (130-400); RBC Distribution Width 14.9 % (11.5-14.5); Red Blood Cell (RBC) Count 4.78 mill/uL (4.70-6.10); White Blood Cell (WBC) Count 6.4 thou/uL (4.8-10.8)
[2018-01-18 14:39] LABS: Anion Gap 17 mmol/L (10-20); BUN (Urea Nitrogen) 35 mg/dL (8.4-25.7); Calc. Creatinine Clearance 43 mL/min (70-130); Carbon Dioxide 25 mmol/L (23-31); Chloride 100 mmol/L (98-107); Estimated GFR-MDRD 35; Glucose 152 mg/dL (83-110); Potassium 3.5 mmol/L (3.5-5.1); Sodium 138 mmol/L (136-145)
[2018-01-18] MEDS: Tamsulosin HCl 0.4 MG CAP PO SCH (20:29)
[2018-01-18] MEDS: Atorvastatin Calcium 20 MG TAB PO SCH (20:29)
[2018-01-19 04:20] LABS: Vancomycin, Trough 21.1 ug/mL
[2018-01-19 04:36] LABS: Anion Gap 13 mmol/L (10-20); BUN (Urea Nitrogen) 35 mg/dL (8.4-25.7); Calc. Creatinine Clearance 48 mL/min (70-130); Calcium 8.6 mg/dL (7.8-10.44); Carbon Dioxide 25 mmol/L (23-31); Chloride 103 mmol/L (98-107); Estimated GFR-MDRD 40; Glucose 123 mg/dL (83-110); Magnesium 1.5 mg/dL (1.6-2.6); Potassium 3.8 mmol/L (3.5-5.1); Sodium 137 mmol/L (136-145)
[2018-01-19] MEDS: Vancomycin HCl 1 GM in Premix Bag 1 BAG IVPB SCH (05:24)
[2018-01-19] MEDS: Furosemide 40 MG/4 ML VIAL SLOW IVP SCH (05:24)
[2018-01-19] MEDS: Gabapentin 300 MG CAP PO SCH (08:22)
[2018-01-19] MEDS: Aspirin 81 mg Enteric Coated Tablet PO SCH (08:22)
[2018-01-19] MEDS: Lisinopril 2.5 MG TAB PO SCH (08:22)
[2018-01-19] MEDS: NIFEdipine XL 90 MG TAB PO SCH (08:22)
[2018-01-19] MEDS: glipiZIDE 5 MG TAB PO SCH (08:22)
--- NOTE | 2018-01-19 10:44 | PRG ---
DATE OF SERVICE: 01/18/2018 SUBJECTIVE: He said he is much better. He is less short of breath this morning. No pain, coughing. OBJECTIVE: VITAL SIGNS: Blood pressure 157/76, sats 98% on room air, respiration rate 16, temperature 98.7. CHEST: Reveals decreased breath sounds, minimal crackles. CARDIAC: Normal S1, S2. No gallops. ABDOMEN: Soft, no masses. LABORATORY DATA: Creatinine 2.6. White count 5000, hemoglobin and hematocrit is 13 and 40. All cul tures are negative. Blood culture is growing coagulase negative Staph that is probably a contaminati on. I would deescalate the antibiotics. IMPRESSION: Congestive heart failure, bilateral pleural effusion, possibly pneumonia, renal failure. PLAN: Switch over to oral antibiotics. Continue diuretics. PT and supportive care.
--- NOTE | 2018-01-19 11:03 | PDOC.CTH ---
Cardiology Progress Note - Subjective He is doing much better. He has diuresed well and is able to lay flat without any oxygen supplementation. - Objective Vital Signs Temp Pulse Resp BP Pulse Ox 01/19/18 07:00 98.7 F 91 20 179/88 H 94 L 01/19/18 04:05 98.8 F 83 18 140/74 98 01/18/18 23:09 98.6 F 79 20 153/79 H 99 Weight 213 lb 8 oz 01/18/18 01/19/18 01/20/18 06:59 06:59 06:59 Intake Total 2464 1734 Output Total 19990 Balance 464 -5926 - Physical Examination General/Neuro: alert & oriented x3, NAD Neck: no JVD present Lungs: CTA, unlabored respirations Heart: RRR Abdomen: NT/ND Extremities: + edema B (2+ right, 1+ left.) - Telemetry Telemetry Rhythm: NSR - Labs Result Diagrams: 01/18/18 14:11 01/19/18 03:56 Troponin/CKMB CK-MB (CK-2) 2.8 ng/mL (0-6.6) 01/15/18 05:24 Troponin I 0.016 ng/mL (< 0.028) 01/15/18 05:24 - Assessment/Plan 1. Acute on chronic diastolic heart failure. 2. DORIS, improving. 3. LBBB, not permanent, may be rate related. . 4. Mediastinal lymph nodes. 5. Bilateral pleural effusions. PLAN: - Will switch diuresis to PO. - BP control. - Will add coreg. - Continue other meds. - Home tomorrow if stable.
[2018-01-19] MEDS: HumaLOG 300 UNITS/3 ML VIAL SC PRN ×2 (11:44→20:38)
[2018-01-19] MEDS ORDERED: Magnesium Sulfate 4 GM in Sodium Chloride 0.9% 250 ML 250 ML IVPB SCH (12:00)
--- NOTE | 2018-01-19 12:02 | PRG ---
DATE OF SERVICE: 01/19/2018 SUBJECTIVE: This is an 78-year-old gentleman being seen for acute kidney injury. The patient denies any nausea, vomiting or chest pain. OBJECTIVE: GENERAL: The patient is awake and alert. VITAL SIGNS: Afebrile, pulse 75, breathing 16, blood pressure was 179/88. HEAD/NECK: Normocephalic. Atraumatic. EYES: EOMI. No deformity. EARS: Clear. No ulcers. NOSE: Intact. No lesions. MOUTH: Clear. No discharge. THROAT: Clear. No exudate. LUNGS: Clear. No crackles. CARDIAC: S1, S2. No rub. ABDOMEN: Benign. BS+. GENITALIA/RECTUM: Lawrence absent. BACK/EXTREMITIES: Edema 0+. Ulcer-. NEUROLOGICAL: The patient is intubated and has a Lawrence catheter present. SKIN: Rash-. Bruise-. LYMPHATICS: Edema-. Ulcer-. LABORATORY DATA: Showed a creatinine of 1.6. ASSESSMENT AND RECOMMENDATIONS: 1. Acute kidney injury with chronic kidney disease, stage 3, stable. 2. Hypertension, stable. 3. Anemia, stable. 4. Medication based on glomerular filtration rate are appropriate. No indication for dialysis at th is time.
--- NOTE | 2018-01-19 12:16 | PRG ---
DATE OF SERVICE: 01/19/2018 SERVICE: Pulmonary Medicine INTERVAL HISTORY: The patient is doing really well from a cardiovascular and respiratory standpoint. He is on room air. He denies any shortness of breath or chest discomfort. He works with physical therapy on a daily basis and his strength is improving ever so slightly. PHYSICAL EXAMINATION: VITAL SIGNS: Afebrile, pulse 81, blood pressure 156/82, respirations 22, saturation 94% on room air. GENERAL: The patient is awake, alert, in no apparent distress. LUNGS: Decent air entry bilaterally with no prolonged expiratory phase. There is minimal dependent crackles present. HEART: Normal rate, regular. ABDOMEN: Soft, nontender, nondistended. Bowel sounds are positive. MUSCULOSKELETAL: No cyanosis or clubbing. There is trace pitting in the bilateral lower extremities . NEUROLOGIC: Grossly nonfocal. LABORATORY DATA: Creatinine down trending to 1.68, BUN 35. Basic metabolic profile is otherwise unr emarkable. Magnesium 1.5. Blood cultures x2 are unremarkable. One blood culture was originally [place] coag negative staph. Urine culture is unremarkable. ASSESSMENT: 1. Acute hypoxic respiratory failure, resolved. 2. Bilateral pleural effusion, likely associated with anasarca state. 3. Acute on chronic diastolic heart failure. 4. Chronic kidney disease, stage 3. 5. Type 2 diabetes mellitus. 6. Obstructive sleep apnea, suspected. PLAN: The patient has been converted over to p.o. diuretics. His acute kidney injury is actually im proving to baseline. At this point, he can be transitioned to the telemetry unit. If he remains sta ble for an additional 24 hours, he should be transitioned home. I would like to repeat a chest x-ray in the outpatient setting in 2 weeks. At that point, we will also set him up for a sleep study if h e is so inclined.
--- NOTE | 2018-01-19 13:32 | PDOC.PN ---
- Subjective Encounter Start Date: 01/19/18 Encounter Start Time: 12:30 Patient is resting comfortably, No other concerns noted. No family meber at bedside. - Objective Resuscitation Status: Resuscitation Status FULL:Full Resuscitation MAR Reviewed: Yes Vital Signs & Weight: Vital Signs (12 hours) Temp Pulse Resp BP Pulse Ox 01/19/18 11:45 98.1 F 81 22 H 156/82 H 94 L 01/19/18 08:00 98.7 F 91 20 94 L 01/19/18 07:00 98.7 F 91 20 179/88 H 94 L 01/19/18 04:05 98.8 F 83 18 140/74 98 Weight Weight 213 lb 8 oz I&O: 01/18/18 01/19/18 01/20/18 06:59 06:59 06:59 Intake Total 2464 1734 Output Total 1999 3800 Balance 464 -7326 Result Diagrams: 01/18/18 14:11 01/19/18 03:56 Additional Labs: Accuchecks 01/19/18 01/19/18 01/18/18 10:34 06:21 20:13 POC Glucose 247 H 144 H 181 H 01/18/18 16:33 POC Glucose 143 H Radiology Reviewed by me: Yes EKG Reviewed by me: Yes Phys Exam - Physical Examination HEENT: PERRLA, moist MMs Neck: no nodes, no JVD Respiratory: no wheezing, no rales Cardiovascular: RRR, no significant murmur Gastrointestinal: soft, non-tender Musculoskeletal: edema present Neurological: non-focal, normal sensation Lymphatic: no nodes Skin: no rash, normal turgor Dx/Plan (1) Bacteremia due to Gram-positive bacteria Code(s): R78.81 - BACTEREMIA Status: Acute Comment: No growth, Likely Contaminenet , Will d/c IV antibitoics (2) Acute CHF Code(s): I50.9 - HEART FAILURE, UNSPECIFIED Status: Acute Qualifiers: Heart failure type: unspecified Qualified Code(s): I50.9 - Heart failure, unspecified Comment: Improved, Echo showed good EF, no on Po lasix , appreciate Cardiology assistance, Will check renal fucntions today. (3) CAD (coronary artery disease) Code(s): I25.10 - ATHSCL HEART DISEASE OF [place] CORONARY ARTERY W/O ANG PCTRS Status: Chronic Comment: Chronic and stable, continue ASA, Lipitor (4) CKD (chronic kidney disease), stage III Code(s): N18.3 - CHRONIC KIDNEY DISEASE, STAGE 3 (MODERATE) Status: Chronic Comment: Avoid nephrotoxic meds and contrast media, appreciate Nephrology assistance (5) DM II (diabetes mellitus, type II), controlled Code(s): E11.9 - TYPE 2 DIABETES MELLITUS WITHOUT COMPLICATIONS Status: Chronic Comment: ISS, Glipizide, serial accuchecks (6) HTN (hypertension) Code(s): I10 - ESSENTIAL (PRIMARY) HYPERTENSION Status: Chronic Qualifiers: Hypertension type: essential hypertension Qualified Code(s): I10 - Essential (primary) hypertension Comment: Continue Nifedipine and Lisinopril (7) Renal failure, acute Status: Acute Comment: Improved renal fucntions noted. - Plan cont current plan of care (Plan to Discharge in AM if remains stable.), PT/OT, social group worker, respiratory therapy, incentive spirometry, DVT proph w/lovenox * . - Discharge Day Encounter end time: 13:00 Review of Systems - Review of Systems Constitutional: weakness Eyes: negative: Pain, Vision Change, Conjunctivae Inflammation, Eyelid Inflammation, Redness, Other ENT: negative: Ear Pain, Ear Discharge, Nose Pain, Nose Discharge, Nose Congestion, Mouth Pain, Mouth Swelling, Throat Pain, Throat Swelling, Other Cardiovascular: negative: chest pain, palpitations, orthopnea, paroxysmal nocturnal dyspnea, edema, light headedness, other Gastrointestinal: negative: Nausea, Vomiting, Abdominal Pain, Diarrhea, Constipation, Melena, Hematochezia, Other Musculoskeletal: negative: Neck Pain, Shoulder Pain, Arm Pain, Back Pain, Hand Pain, Leg Pain, Foot Pain, Other Skin: negative: Rash, Lesions, Krishna, Bruising, Other - Medications/Allergies Allergies/Adverse Reactions: Allergies Allergy/AdvReac Type Severity Reaction Status Date / Time No Known Allergies Allergy Verified 12/20/17 04:15 Medications: Current Medications Acetaminophen (Tylenol) 1,000 mg PO Q6H PRN PRN Reason: Headache/Fever or Mild Pain Aspirin (Ecotrin) 81 mg PO DAILY [facility] Last Admin: 01/19/18 08:22 Dose: 81 mg Atorvastatin Calcium (Lipitor) 20 mg PO HS [facility] Last Admin: 01/18/18 20:29 Dose: 20 mg Carvedilol (Coreg) 3.125 mg PO BID-[facility] Clonidine (Catapres) 0.1 mg PO Q4H PRN PRN Reason: Systolic BP > 180 Dextrose/Water (Dextrose 50%) 25 gm SLOW IVP PRN PRN PRN Reason: Hypoglycemia Furosemide (Lasix) 40 mg PO 0900,1400 [facility] Gabapentin (Neurontin) 300 mg PO DAILY [facility] Last Admin: 01/19/18 08:22 Dose: 300 mg Glipizide (Glucotrol) 5 mg PO DAILY-[facility] Last Admin: 01/19/18 08:22 Dose: 5 mg Glucagon (Glucagon) 1 mg IM PRN PRN PRN Reason: Hypoglycemia Hydralazine HCl (Apresoline) 10 mg SLOW IVP Q4H PRN PRN Reason: Systolic BP > 180 Dextrose/Water (D5w) 1,000 mls @ 0 mls/hr IV .Q0M PRN; As Directed PRN Reason: Hypoglycemia Levofloxacin 500 mg/ Device 100 mls @ 100 mls/hr IVPB 1600 [facility] Last Admin: 01/18/18 15:25 Dose: 100 mls Vancomycin HCl 1 gm/ Device 200 mls @ 133.333 mls/hr IVPB 0500,1700 [facility] Last Admin: 01/19/18 05:24 Dose: 200 mls Magnesium Sulfate 4 gm/ Sodium (Chloride) 258 mls @ 86 mls/hr IVPB NOW [facility] Stop: 01/19/18 16:00 Insulin Human Lispro (Humalog) 0 units SC .MODERATE SLIDING SC PRN PRN Reason: Moderate Correctional Scale Last Admin: 01/19/18 11:44 Dose: 6 unit Insulin Human Lispro (Humalog) 0 units SC .BEDTIME SLIDING SC PRN PRN Reason: Bedtime Correctional Scale Last Admin: 01/16/18 21:59 Dose: 2 unit Lisinopril (Zestril) 2.5 mg PO DAILY [facility] Last Admin: 01/19/18 08:22 Dose: 2.5 mg Nifedipine (Procardia Xl) 90 mg PO DAILY [facility] Last Admin: 01/19/18 08:22 Dose: 90 mg Ondansetron HCl (Zofran Odt) 4 mg PO Q6H PRN PRN Reason: Nausea/Vomiting Ondansetron HCl (Zofran) 4 mg IVP Q6H PRN PRN Reason: Nausea/Vomiting Sodium Chloride (Flush - Normal Saline) 10 ml IVF Q12HR [facility] Sodium Chloride (Flush - Normal Saline) 10 ml IVF PRN PRN PRN Reason: Saline Flush Tamsulosin HCl (Flomax) 0.4 mg PO QPM [facility] Last Admin: 01/18/18 20:29 Dose: 0.4 mg
[2018-01-19] MEDS: Carvedilol 3.125 MG TAB PO SCH (17:29)
[2018-01-19] MEDS: Atorvastatin Calcium 20 MG TAB PO SCH (20:10)
[2018-01-19] MEDS: Tamsulosin HCl 0.4 MG CAP PO SCH (20:10)
[2018-01-20] MEDS ORDERED: Furosemide 20 MG TAB PO SCH (00:01)
[2018-01-20] MEDS: Carvedilol 3.125 MG TAB PO SCH (08:29)
[2018-01-20] MEDS: glipiZIDE 5 MG TAB PO SCH (08:29)
[2018-01-20] MEDS: Aspirin 81 mg Enteric Coated Tablet PO SCH (08:29)
[2018-01-20] MEDS: Gabapentin 300 MG CAP PO SCH (08:30)
[2018-01-20] MEDS: Lisinopril 2.5 MG TAB PO SCH (08:30)
[2018-01-20] MEDS: NIFEdipine XL 90 MG TAB PO SCH (08:31)
[2018-01-20] MEDS ORDERED: Furosemide 40 MG TAB PO SCH (09:00)
--- NOTE | 2018-01-20 09:32 | PRG ---
DATE OF SERVICE: 01/20/2018 SERVICE: Pulmonary Medicine. INTERVAL HISTORY: The patient is doing great from a respiratory standpoint. He is on room air. He denies any chest pain or shortness of breath. He has a little bit more lower extremity swelling, but outside of that, he has no specific complaints. PHYSICAL EXAMINATION: VITAL SIGNS: Afebrile, pulse 75, blood pressure 166/86, respirations 17, saturation 95% on room air. GENERAL: The patient is awake, alert, no apparent distress. LUNGS: Decent air entry. There is no prolonged expiratory phase, wheezing, rhonchi, or crackles pre sent. HEART: Normal rate, regular. ABDOMEN: Soft, nontender, and nondistended. Bowel sounds are positive. MUSCULOSKELETAL: No cyanosis or clubbing. There is trace to 1+ pitting in the bilateral lower extre mities, limited to the ankles. ASSESSMENT: 1. Acute hypoxic respiratory failure, resolved. 2. Bilateral pleural effusions, likely associated with anasarca state. 3. Acute on chronic diastolic heart failure. 4. Chronic kidney disease, stage 3. 5. Type 2 diabetes mellitus. 6. Obstructive sleep apnea, suspected. PLAN: From a purely respiratory perspective, the patient remains stable for transition out of the [facility]. I would like for him to follow up with me in the outpatient setting in 2 weeks with a chest x-ray. At that time, we will set him up for a polysomnogram if he is so inclined. From my perspecti ve, he is stable for transition to the medical unit or for discharge. At this point, he has no furth er requirements for inpatient Pulmonary or Critical Care opinion, and I will sign off. Please call w ith additional questions or concerns.
--- NOTE | 2018-01-20 09:46 | PRG ---
DATE OF SERVICE: 01/20/2018 SUBJECTIVE: This is an 78-year-old gentleman being seen for acute kidney injury. PHYSICAL EXAMINATION: GENERAL: Patient is resting. VITAL SIGNS: Afebrile, pulse 75, breathing 16, blood pressure 166/36. OBJECTIVE: See above. Awake, alert, in no acute distress. GENERAL APPEARANCE AND MENTAL STATUS: Fair. HEAD/NECK: Normocephalic. Atraumatic. EYES: EOMI. No deformity. EARS: Clear. No ulcers. NOSE: Intact. No lesions. MOUTH: Clear. No discharge. THROAT: Clear. No exudate. LUNGS: Clear. No crackles. CARDIAC: S1, S2. No rub. ABDOMEN: Benign. BS+. GENITALIA/RECTUM: Lawrence absent. BACK/EXTREMITIES: Edema 0+ Ulcer- NEUROLOGICAL: Alert and motor intact. SKIN: Rash- Bruise- LYMPHATICS: Edema- Ulcer- LABORATORY: Hemoglobin is 13, creatinine 1.6. RECOMMENDATIONS: 1. Acute kidney injury, chronic kidney disease. Creatinine is pending. 2. Hypertension, stable. 3. Anemia, stable. 4. Medications based on glomerular filtration rate are appropriate.
[2018-01-20 09:48] LABS: Anion Gap 9 mmol/L (10-20); BUN (Urea Nitrogen) 38 mg/dL (8.4-25.7); Calc. Creatinine Clearance 44 mL/min (70-130); Calcium 8.6 mg/dL (7.8-10.44); Carbon Dioxide 31 mmol/L (23-31); Chloride 102 mmol/L (98-107); Estimated GFR-MDRD 37; Glucose 229 mg/dL (83-110); Potassium 3.8 mmol/L (3.5-5.1); Sodium 138 mmol/L (136-145)
[2018-01-20 11:11] VITALS: TEMP 97.4
[2018-01-20 12:39] VITALS: BP 177/92
--- NOTE | 2018-01-20 17:01 | DIS ---
DATE OF ADMISSION: 01/15/2018 DATE OF DISCHARGE: 01/20/2018 DISCHARGE DIAGNOSES: 1. Acute diastolic congestive heart failure exacerbation with ejection fraction of 50% to 55%. 2. Chronic kidney disease, stage 3. 3. Diabetes mellitus type 2, stable. 4. Coronary artery disease, chronic and stable. 5. Hypertension, stable. CONSULTATIONS: 1. Dr. Skinner with Cardiology Service. 2. Dr. Marshall and Dr. Golden with Nephrology Service. 3. Dr. Casey with Pulmonology Service. PERTINENT LABORATORY AND X-RAY FINDINGS: Creatinine ranged between 1.68 to 2.07 with estimated GFR r anging between 31 to 40. Lactic acid level is 1.0. Magnesium level ranged between 1.5 to 1.9. BNP is 208. Troponin is 0.016. CBC showed hemoglobin ranging between 11.2 to 13.1. Influenza A and B a ntigen on 01/15/2018 was negative. Blood cultures dated 01/15/2018 showed 1/2 with coagulase negativ e Staphylococcus, likely skin contaminant. Urine culture dated 01/15/2018 showed less than 10,000 co lonies of mixed skin sara. Blood cultures x2 dated 01/17/2018 showed no growth at 48 hours. Portab le chest x-ray dated 01/15/2018 showed bilateral lobe infiltrates with effusion. Bilateral lower ext remity venous Doppler study dated 01/15/2018 showed no evidence for DVT. CT angiogram of the chest d ated 01/15/2018 showed no evidence for pulmonary embolus. Bilateral pleural effusions with associate d atelectasis. A 2D transthoracic echocardiogram dated 01/16/2018 showed ejection fraction of 50% to 55%. Diastolic dysfunction noted. Mild left atrial enlargement. Moderate tricuspid valve regurgit ation. Left pleural effusion. HOSPITAL COURSE: The patient was admitted after presenting with shortness of breath with associated lower extremity edema and elevated BNP consistent with volume overload and congestive heart failure. The patient was initially placed on IV Lasix with 2D transthoracic echocardiogram confirming diastol ic dysfunction with overall preserved ejection fraction of 50% to 55%. The patient had excellent diu resis with IV Lasix and was monitored by the Cardiology Service. The patient continued to diurese ap propriately with resolution of shortness of breath. The patient was also monitored due to chronic ki dney disease, stage 3, with diuretic therapy and overall remained clinically stable with diuresis. T he patient did receive IV antibiotic therapy after initial concern for possible bacteremia; however, review of the blood culture shows a skin contaminant due to the coagulase negative Staphylococcus spe cies. The patient continued to clinically improve with diuretic therapy as stated previously, ambula ting with the use of a single-point cane without difficulty. The patient continued to remain on room air with O2 saturations in the mid to upper 90% range without oxygen supplementation. The patient's overall weight decreased from initial admission weight of 230 pounds to 208 pounds by discharge. Ov erall, the patient remained clinically stable with telemetry monitoring showing a left bundle branch block pattern. No specific indication from Cardiology to intervene or pursue further workup at this time. Serial monitoring on an outpatient basis is recommended. I have examined the patient and disc ussed laboratory findings and pertinent studies with the patient and family who verbalizes understand ing. Discharge instructions and plan for followup have been discussed at the time of discharge and t he patient is agreeable. The patient is overall clinically stable and ready for discharge on 018. DISCHARGE MEDICATIONS: 1. Enteric coated aspirin 81 mg 1 tablet p.o. daily. 2. Coreg 3.125 mg p.o. b.i.d. 3. Nexium 40 mg p.o. q.a.m. 4. Lasix 40 mg p.o. daily. 5. Gabapentin 300 mg p.o. daily. 6. Glipizide 5 mg p.o. daily. 7. Lisinopril 2.5 mg p.o. daily. 8. Nifedipine 90 mg p.o. daily. 9. Simvastatin 40 mg p.o. at bedtime. 10. Tamsulosin 0.4 mg p.o. at bedtime. FOLLOWUP: The patient will follow up with his primary care provider, Dr. Osmin Bales, on 8 at 1:00 p.m. The patient will follow up with Dr. Skinner with [facility] Cardiology Service and to call his office for appointment time and date. The patient will follow up with Dr. Andrea Casey within 2 weeks. The patient will also follow up with outpatient cardiac rehabilitation in [facility]. CONDITION ON DISCHARGE: Stable. ACTIVITY: Ad jenn. DIET: Heart healthy and ADA. Fluid restriction to 1.5-2 liters per 24 hours. CODE STATUS: FULL. DISPOSITION: Home on 01/20/2018. Total time preparing and coordinating this discharge is 36 minutes.
--- NOTE | 2018-01-20 17:42 | PDOC.CTH ---
Cardiology Progress Note - Subjective He is doing much better. He denies any chest pain, tightness ,pressure, SOB. His edema is significantly improved. - Objective Vital Signs Temp Pulse Pulse Pulse Resp BP BP 01/20/18 11:10 97.4 F L 76 13 01/20/18 11:01 99.2 F 94 16 01/20/18 10:18 77 80 177/92 H 167/90 H 01/20/18 08:00 98.9 F 75 16 01/20/18 07:19 98.9 F 75 BP BP Pulse Ox Pulse Ox Pulse Ox 01/20/18 11:10 177/99 H 100 01/20/18 11:01 152/89 H 94 L 01/20/18 10:18 100 100 01/20/18 08:00 95 01/20/18 07:19 166/86 H 95 Weight 208 lb 3 oz 01/19/18 01/20/18 01/21/18 06:59 06:59 06:59 Intake Total 1734 1520 Output Total 3800 900 Balance -2066 620 - Physical Examination General/Neuro: alert & oriented x3, NAD Neck: no JVD present Lungs: CTA, unlabored respirations Heart: RRR Abdomen: NT/ND Extremities: + edema B (1+) - Telemetry Telemetry Rhythm: NSR - Labs Result Diagrams: 01/18/18 14:11 01/20/18 09:24 Troponin/CKMB CK-MB (CK-2) 2.8 ng/mL (0-6.6) 01/15/18 05:24 Troponin I 0.016 ng/mL (< 0.028) 01/15/18 05:24 - Assessment/Plan 1. Acute on chronic diastolic heart failure. 2. DORIS, improving. 3. LBBB, not permanent, may be rate related. . 4. Mediastinal lymph nodes. 5. Bilateral pleural effusions. PLAN: - Continue current PO dose of Lasix. - May discharge today. - Follow up in 1 month.
== END 2018-01-20 13:05 | disposition home or self-care (01) | DRG 291 ==
LOC: ERS 04:42 → IMCU/EMU 08:51
PROVIDERS: ADMIT Family Medicine; ATTEND Family Medicine
DX: I13.0 Hypertensive heart and chronic kidney disease with heart failure and stage 1 through stage 4 chronic kidney disease, or unspecified chronic kidney disease (principal); I50.33 Acute on chronic diastolic (congestive) heart failure; J96.01 Acute respiratory failure with hypoxia; N17.9 Acute kidney failure, unspecified; R78.81 Bacteremia; E87.1 Hypo-osmolality and hyponatremia; E11.22 Type 2 diabetes mellitus with diabetic chronic kidney disease; I44.7 Left bundle-branch block, unspecified; N18.3 Chronic kidney disease, stage 3 (moderate); I25.10 Atherosclerotic heart disease of native coronary artery without angina pectoris; E78.5 Hyperlipidemia, unspecified; Z86.73 Personal history of transient ischemic attack (TIA), and cerebral infarction without residual deficits; N40.0 Benign prostatic hyperplasia without lower urinary tract symptoms; Z79.84 Long term (current) use of oral hypoglycemic drugs; E66.01 Morbid (severe) obesity due to excess calories; Z68.30 Body mass index [BMI] 30.0-30.9, adult; E87.6 Hypokalemia
CPT/HCPCS: 36415; 36416; 71045; 71275; 80048; 80053; 80202; 81003; 81015; 82553; 82805; 83605; 83690; 83735; 83880; 84145; 84484; 85007; 85025; 85027; 85379; 85610; 85730; 87040; 87086; 87149; 87804; 93005; 93306; 93798; 93970; 94660; 96365; 96366; J1956; J3475; J7050

== ENCOUNTER 2018-02-11 10:54 | Outpatient (CLI) | payer MEDICARE ==
--- NOTE | 2018-02-11 13:20 | RAD ---
PA AND LATERAL VIEWS CHEST: HISTORY: Dyspnea. FINDINGS: Comparison is made with the exam of 01/15/18. The heart size is normal. The lungs are expanded without focal areas of consolidation, pneumothorax, or pleural effusions seen. There are old right rib fractures. There are degenerative changes in th e spine. IMPRESSION: No acute process. POS: [facility]
== END 2018-02-11 10:55 | disposition home or self-care (01) ==
LOC: RAD 10:54
PROVIDERS: ATTEND Orthopaedic Surgery Sports Medicine
DX: R06.00 Dyspnea, unspecified (principal)
CPT/HCPCS: 71046

== ENCOUNTER 2018-03-20 20:30 | Outpatient (CLI) | payer MEDICARE | END 2018-03-20 20:31 | disposition home or self-care (01) | LOC: SLEEPLAB 20:30 | PROVIDERS: ATTEND Internal Medicine | DX: G47.33 Obstructive sleep apnea (adult) (pediatric) (principal); R53.83 Other fatigue; R09.89 Other specified symptoms and signs involving the circulatory and respiratory systems; E66.9 Obesity, unspecified; K21.9 Gastro-esophageal reflux disease without esophagitis; R06.83 Snoring; R35.1 Nocturia; I11.0 Hypertensive heart disease with heart failure; I50.9 Heart failure, unspecified | CPT/HCPCS: 95811 ==

== ENCOUNTER 2018-04-25 20:30 | Outpatient (CLI) | payer MEDICARE | END 2018-04-25 20:31 | disposition home or self-care (01) | LOC: SLEEPLAB 20:30 | PROVIDERS: ATTEND Internal Medicine | DX: G47.33 Obstructive sleep apnea (adult) (pediatric) (principal); R53.83 Other fatigue; E66.9 Obesity, unspecified; R06.83 Snoring; R35.1 Nocturia; I50.9 Heart failure, unspecified; R09.89 Other specified symptoms and signs involving the circulatory and respiratory systems; Z68.30 Body mass index [BMI] 30.0-30.9, adult; G47.61 Periodic limb movement disorder | CPT/HCPCS: 95811 ==

== ENCOUNTER 2018-11-05 17:31 | Emergency (ER) | payer MEDICARE ==
--- NOTE | 2018-11-05 18:49 | RAD ---
FRONTAL RADIOGRAPH CHEST 11/05/18 COMPARISON: 01/15/18. HISTORY: Fall. FINDINGS: No pneumothorax, pleural fluid, focal consolidation, or alveolar edema. Heart and mediastinal contours are unremarkable. Old right sided rib fractures are noted. IMPRESSION: No acute findings. POS: [facility]
[2018-11-05 19:19] LABS: #Monocytes 0.6 thou/uL (0.11-0.59); #Neutrophils 6.2 thou/uL (1.40-6.50); %Basophils 0.6 % (0.0-1.0); %Eosinophils 0.5 % (0.0-10.0); %Lymphocytes 12.4 % (21.0-51.0); %Monocytes 7.7 % (0.0-10.0); %Neutrophils 78.8 % (42.0-75.0); Mean Corpuscular HGB CONC 31.4 g/dL (32.0-36.0); Mean Corpuscular Hemoglobin 28.2 pg (27.0-31.0); Mean Corpuscular Volume 89.7 fL (78.0-98.0); Mean Platelet Volume 8.7 fL (7.4-10.4); Platelet Count 128 thou/uL (130-400); RBC Distribution Width 14.2 % (11.5-14.5); Red Blood Cell (RBC) Count 4.25 mill/uL (4.70-6.10); White Blood Cell (WBC) Count 7.9 thou/uL (4.8-10.8)
[2018-11-05 19:23] LABS: Bilirubin Negative (Negative); Blood, Urine Small (Negative); Clarity CLEAR (Clear); Glucose, Urine (Dipstick) Negative (Negative); Leukocyte Small (Negative); Nitrite Negative (Negative); Protein, Urine (Dipstick) 100 mg/dL (Neg-Trace); Specific Gravity, Urine 1.014 (1.002-1.036); Urobilinogen 0.2 mg/dL (0.2-1.0)
[2018-11-05 19:25] LABS: Bacteria/HPF None Seen HPF (None Seen); Hyaline Casts/LPF 0-3 HYALINE CAST LPF (0-3 Hyaline); Pathc Cast-AUWi Flag 0.14 (0-2.49); Squamous Epithelial 0-3 HPF (0-3)
[2018-11-05 19:44] LABS: ALT (SGPT) 25 U/L (8-55); AST (SGOT) 18 U/L (5-34); Albumin 3.4 g/dL (3.4-4.8); Alkaline Phosphatase 52 U/L (40-150); Anion Gap 14 mmol/L (10-20); BUN (Urea Nitrogen) 35 mg/dL (8.4-25.7); Bilirubin, Total 0.3 mg/dL (0.2-1.2); Calc. Creatinine Clearance 0 mL/min (70-130); Calcium 8.6 mg/dL (7.8-10.44); Carbon Dioxide 25 mmol/L (23-31); Chloride 101 mmol/L (98-107); Estimated GFR-MDRD 34; Globulin 3.2 g/dL (2.4-3.5); Glucose 139 mg/dL (83-110); Potassium 4.2 mmol/L (3.5-5.1); Protein, Total 6.6 g/dL (5.8-8.1); Sodium 136 mmol/L (136-145)
--- NOTE | 2018-11-05 21:03 | CT ---
CT OF THE HEAD WITHOUT CONTRAST 11/05/18 COMPARISON: None. HISTORY: Fall, trauma, pain. TECHNIQUE: Axial CT imaging at 5 mm intervals from skull base through vertex without contrast. FINDINGS: The imaged paranasal sinuses/mastoid air cells are well aerated. There is no displaced calvarial fracture. There is atherosclerotic calcification of the cavernous carotid arteries and the distal vertebral art eries. There is extensive periventricular, deep and subcortical white matter hypodensity, evidence of small vessel disease. There is associated cerebral volume loss. No intracranial hemorrhage, midline shift, mass effect or ventricular enlargement. There is mild scalp swelling in the right supraorbita l region. IMPRESSION: Cerebral volume loss and small vessel disease. No evidence for intracranial hemorrhage or displaced c alvarial fracture. POS: [facility]
== END 2018-11-05 21:47 | disposition home or self-care (01) ==
LOC: ERS 17:31
DX: S00.83XA Contusion of other part of head, initial encounter (principal); N39.0 Urinary tract infection, site not specified; I10 Essential (primary) hypertension; E11.9 Type 2 diabetes mellitus without complications; Z86.73 Personal history of transient ischemic attack (TIA), and cerebral infarction without residual deficits; Z79.899 Other long term (current) drug therapy; Z79.82 Long term (current) use of aspirin; Z79.4 Long term (current) use of insulin; W19.XXXA Unspecified fall, initial encounter
CPT/HCPCS: 36416; 70450; 71045; 80053; 81003; 81015; 83605; 85025; 87804; 93005

== ENCOUNTER 2018-11-25 10:36 | Outpatient (CLI) | payer MEDICARE ==
--- NOTE | 2018-11-25 12:10 | ULT ---
RENAL ULTRASOUND: HISTORY: Renal failure. Hematuria. COMPARISON: 12/20/2017. TECHNIQUE: Sagittal and transverse imaging of the kidneys is performed. FINDINGS: Limited evaluation of both renal cortices. Solid isoechoic masses could be easily obscured. There a re multiple anechoic foci in the left and right renal cortex compatible with bilateral cortical cysts . The largest cyst in the right kidney measures 2.9 x 2.5 x 2.5 cm. The largest cyst in the left ki dney measures 2.4 x 1.4 x 2.9 cm. Bilaterally, no hydronephrosis. The right kidney measures 10.8 x 5.8 x 5.4 cm. The left kidney measures 5.5 x 11.0 x 6.3 cm. Urinary bladder is unremarkable with a prevoid volume of 107 mL. IMPRESSION: 1. Bilateral renal cortical cysts. 2. No definite hydronephrosis. POS: [facility]
== END 2018-11-25 10:37 | disposition home or self-care (01) ==
LOC: ULT 10:36
PROVIDERS: ATTEND Urology
DX: R31.29 Other microscopic hematuria (principal); N28.1 Cyst of kidney, acquired
CPT/HCPCS: 76770

== ENCOUNTER 2021-10-09 20:50 | Inpatient (IN) | payer MEDICARE ==
[2021-10-09 21:20] LABS: Bacteria/HPF None Seen HPF (None Seen); Bilirubin Negative (Negative); Blood, Urine 1+ (Negative); Clarity Clear (Clear); Glucose, Urine (Dipstick) 200 mg/dL (Negative); Ketone, Urine Negative (Negative); Leukocyte Negative Leu/uL (Negative); Nitrite Negative (Negative); Protein, Urine (Dipstick) 300 mg/dL (Neg-Trace); RBC/HPF None Seen HPF (0-3); Specific Gravity, Urine 1.015 (1.002-1.036); Squamous Epithelial None Seen HPF (0-3); Urobilinogen Normal mg/dL (Less than 2); WBC/HPF 0-3 HPF (0-3); pH, Urine 6.5 (5.0-9.0)
[2021-10-09 21:59] LABS: #Eosinphils 0.1 thou/uL (0.0-0.7); #Lymphocytes 1.1 thou/uL (1.20-3.40); #Monocytes 0.5 thou/uL (0.11-0.59); #Neutrophils 4.2 thou/uL (1.40-6.50); %Basophils 0.5 % (0.0-1.0); %Eosinophils 2.2 % (0.0-10.0); %Lymphocytes 18.4 % (21.0-51.0); %Monocytes 8.2 % (0.0-10.0); %Neutrophils 70.8 % (42.0-75.0); Hemoglobin 11.9 g/dL (14.0-18.0); Mean Corpuscular HGB CONC 32.7 g/dL (32.0-36.0); Mean Corpuscular Hemoglobin 29.6 pg (27.0-31.0); Mean Corpuscular Volume 90.4 fL (78.0-98.0); Mean Platelet Volume 8.6 fL (7.4-10.4); Platelet Count 151 thou/uL (130-400); RBC Distribution Width 14.3 % (11.5-14.5); Red Blood Cell (RBC) Count 4.03 mill/uL (4.70-6.10)
[2021-10-09 22:24] LABS: ALT (SGPT) 15 U/L (8-55); AST (SGOT) 16 U/L (5-34); Albumin 3.6 g/dL (3.4-4.8); Alkaline Phosphatase 52 U/L (40-110); Anion Gap 14 mmol/L (10-20); BUN (Urea Nitrogen) 58 mg/dL (8.4-25.7); Bilirubin, Total 0.3 mg/dL (0.2-1.2); Calc. Creatinine Clearance 0 mL/min (70-130); Calcium 8.6 mg/dL (7.8-10.44); Carbon Dioxide 26 mmol/L (23-31); Chloride 103 mmol/L (98-107); Globulin 3.3 g/dL (2.4-3.5); Glucose 185 mg/dL (83-110); Potassium 4.2 mmol/L (3.5-5.1); Protein, Total 6.9 g/dL (5.8-8.1); Sodium 139 mmol/L (136-145)
[2021-10-10] MEDS ORDERED: Furosemide 40 MG/4 ML VIAL ONE ×2 (00:05→09:42)
[2021-10-10] MEDS ORDERED: Nitroglycerin 2% Ointment 1 INCH/1 GM Packet ONE (00:05)
[2021-10-10] MEDS ORDERED: Acetaminophen 325 MG TAB PO PRN (01:02)
[2021-10-10] MEDS ORDERED: Dextrose 5% in Water 1,000 ML IV PRN (01:02)
[2021-10-10] MEDS ORDERED: Ondansetron PF 4 MG/2 ML Vial IVP PRN (01:02)
[2021-10-10] MEDS ORDERED: Dextrose 50% Abboject 50 ML SYRINGE SLOW IVP PRN (01:02)
[2021-10-10] MEDS ORDERED: Nitroglycerin 0.4 MG TAB (25 Tab Bottle) SL PRN (01:02)
[2021-10-10 02:10] LABS: SARS-CoV-2 NAA Rapid Test Not Detected (NotDetected)
[2021-10-10 02:15] LABS: Troponin I 0.021 ng/mL (< 0.028)
[2021-10-10 05:32] LABS: Cardiac Risk 3.3 (Less than 4.5)
[2021-10-10 05:36] LABS: Troponin I 0.077 ng/mL (< 0.028)
[2021-10-10] MEDS: Furosemide 40 MG/4 ML VIAL SLOW IVP SCH ×2 (07:20→09:57)
[2021-10-10 08:34] LABS: Troponin I 0.248 ng/mL (< 0.028)
[2021-10-10] MEDS ORDERED: Aspirin Chewable 81 MG TAB PO SCH (09:00)
[2021-10-10] MEDS ORDERED: Aspirin Chewable 81 MG TAB ONE (09:42)
[2021-10-10] MEDS ORDERED: Enoxaparin Sodium 30 MG/0.3 ML SYRINGE ONE (09:42)
[2021-10-10] MEDS: Aspirin 81 mg Enteric Coated Tablet PO SCH (09:51)
[2021-10-10] MEDS: Finasteride 5 MG TAB PO SCH (09:53)
[2021-10-10] MEDS: Enoxaparin Sodium 30 MG/0.3 ML SYRINGE SC SCH (09:56)
[2021-10-10 16:42] VITALS: BMI 34.6
[2021-10-10] MEDS ORDERED: FLU VACC QS2021-22(65YR UP)/PF 240 MCG/0.7 ML SYRINGE IM ONE (17:30)
[2021-10-10] MEDS: Tamsulosin HCl 0.4 MG CAP PO SCH (20:36)
[2021-10-10] MEDS: hydrALAZINE 20 MG/ML VIAL SLOW IVP PRN (21:24)
[2021-10-10] MEDS: Lantus 1000 UNITS/10 ML VIAL SC SCH (22:21)
[2021-10-11] MEDS ORDERED: Labetalol HCl 100 MG/20 ML VIAL SLOW IVP SCH ×2 (00:30→11:45)
[2021-10-11] MEDS: hydrALAZINE 20 MG/ML VIAL SLOW IVP PRN ×4 (08:10→23:41)
[2021-10-11] MEDS: Finasteride 5 MG TAB PO SCH (09:53)
[2021-10-11] MEDS: Aspirin 81 mg Enteric Coated Tablet PO SCH (09:53)
[2021-10-11] MEDS: Enoxaparin Sodium 30 MG/0.3 ML SYRINGE SC SCH (09:53)
[2021-10-11 10:02] LABS: Anion Gap 14 mmol/L (10-20); BUN (Urea Nitrogen) 52 mg/dL (8.4-25.7); Calc. Creatinine Clearance 28 mL/min (70-130); Calcium 8.7 mg/dL (7.8-10.44); Carbon Dioxide 26 mmol/L (23-31); Chloride 103 mmol/L (98-107); Glucose 122 mg/dL (83-110); Potassium 3.3 mmol/L (3.5-5.1); Sodium 140 mmol/L (136-145)
[2021-10-11] MEDS ORDERED: Carvedilol 3.125 MG TAB PO SCH ×2 (10:45→11:00)
[2021-10-11] MEDS ORDERED: Sodium Chloride 0.9% 500 ML IV SCH (12:30)
[2021-10-11] MEDS: hydrALAZINE 25 MG TAB PO SCH ×2 (15:16→20:16)
[2021-10-11] MEDS: HYDROcodone/Acetaminophen 5/325 mg Tablet PO PRN ×2 (15:24→20:16)
[2021-10-11] MEDS: Carvedilol 3.125 MG TAB PO SCH (16:35)
[2021-10-11] MEDS: HumaLOG 300 UNITS/3 ML VIAL SC PRN (17:09)
[2021-10-11] MEDS: Tamsulosin HCl 0.4 MG CAP PO SCH (20:16)
[2021-10-11] MEDS: Lantus 1000 UNITS/10 ML VIAL SC SCH (23:41)
[2021-10-12 06:12] LABS: BUN (Urea Nitrogen) 44 mg/dL (8.4-25.7)
[2021-10-12 07:01] LABS: Anion Gap 12 mmol/L (10-20); Calcium 8.3 mg/dL (7.8-10.44); Carbon Dioxide 24 mmol/L (23-31); Chloride 108 mmol/L (98-107); Glucose 141 mg/dL (83-110); Potassium 3.2 mmol/L (3.5-5.1); Sodium 141 mmol/L (136-145)
[2021-10-12 07:02] LABS: Calc. Creatinine Clearance 28 mL/min (70-130)
[2021-10-12] MEDS: hydrALAZINE 20 MG/ML VIAL SLOW IVP PRN ×3 (09:29→23:23)
[2021-10-12] MEDS: Finasteride 5 MG TAB PO SCH (09:30)
[2021-10-12] MEDS: Aspirin 81 mg Enteric Coated Tablet PO SCH (09:30)
[2021-10-12] MEDS: hydrALAZINE 25 MG TAB PO SCH ×3 (09:30→21:29)
[2021-10-12] MEDS: Enoxaparin Sodium 30 MG/0.3 ML SYRINGE SC SCH (09:31)
[2021-10-12] MEDS: HYDROcodone/Acetaminophen 5/325 mg Tablet PO PRN ×2 (09:31→21:29)
[2021-10-12] MEDS: Carvedilol 3.125 MG TAB PO SCH (09:31)
[2021-10-12] MEDS ORDERED: Potassium Chloride 20 MEQ TAB PO SCH (10:45)
[2021-10-12] MEDS ORDERED: Carvedilol 3.125 MG TAB PO SCH (11:30)
[2021-10-12] MEDS: HumaLOG 300 UNITS/3 ML VIAL SC PRN ×2 (12:16→16:34)
[2021-10-12] MEDS: Carvedilol 25 MG TAB PO SCH (16:48)
[2021-10-12] MEDS: Labetalol HCl 100 MG/20 ML VIAL SLOW IVP PRN (16:48)
[2021-10-12] MEDS: Tamsulosin HCl 0.4 MG CAP PO SCH (21:29)
[2021-10-12] MEDS: Lantus 1000 UNITS/10 ML VIAL SC SCH (21:29)
[2021-10-13] MEDS: Labetalol HCl 100 MG/20 ML VIAL SLOW IVP PRN ×3 (03:17→15:49)
[2021-10-13 05:00] LABS: Anion Gap 12 mmol/L (10-20); BUN (Urea Nitrogen) 42 mg/dL (8.4-25.7); Calc. Creatinine Clearance 28 mL/min (70-130); Calcium 8.1 mg/dL (7.8-10.44); Carbon Dioxide 23 mmol/L (23-31); Chloride 109 mmol/L (98-107); Glucose 92 mg/dL (83-110); Potassium 3.5 mmol/L (3.5-5.1); Sodium 140 mmol/L (136-145)
[2021-10-13] MEDS: hydrALAZINE 25 MG TAB PO SCH ×3 (09:18→21:27)
[2021-10-13] MEDS: Enoxaparin Sodium 30 MG/0.3 ML SYRINGE SC SCH (09:18)
[2021-10-13] MEDS: Finasteride 5 MG TAB PO SCH (09:18)
[2021-10-13] MEDS: Aspirin 81 mg Enteric Coated Tablet PO SCH (09:18)
[2021-10-13] MEDS: hydrALAZINE 20 MG/ML VIAL SLOW IVP PRN ×3 (09:19→23:27)
[2021-10-13] MEDS: Carvedilol 25 MG TAB PO SCH ×2 (09:19→16:22)
[2021-10-13] MEDS ORDERED: Potassium Chloride 20 MEQ TAB PO SCH (10:45)
[2021-10-13] MEDS: HumaLOG 300 UNITS/3 ML VIAL SC PRN (11:56)
[2021-10-13] MEDS ORDERED: NIFEdipine XL 30 MG TAB PO SCH (17:45)
[2021-10-13] MEDS: Atorvastatin Calcium 20 MG TAB PO SCH (21:26)
[2021-10-13] MEDS: Gabapentin 300 MG CAP PO SCH (21:26)
[2021-10-13] MEDS: HYDROcodone/Acetaminophen 5/325 mg Tablet PO PRN (21:27)
[2021-10-13] MEDS: rOPINIRole HCl 1 MG TAB PO SCH (21:27)
[2021-10-13] MEDS: Lantus 1000 UNITS/10 ML VIAL SC SCH (21:27)
[2021-10-13] MEDS: Tamsulosin HCl 0.4 MG CAP PO SCH (21:27)
[2021-10-14 05:21] LABS: Anion Gap 13 mmol/L (10-20); BUN (Urea Nitrogen) 44 mg/dL (8.4-25.7); Calc. Creatinine Clearance 27 mL/min (70-130); Calcium 8.4 mg/dL (7.8-10.44); Carbon Dioxide 22 mmol/L (23-31); Chloride 108 mmol/L (98-107); Glucose 160 mg/dL (83-110); Sodium 139 mmol/L (136-145)
[2021-10-14] MEDS: hydrALAZINE 25 MG TAB PO SCH ×3 (08:25→20:46)
[2021-10-14] MEDS: Aspirin 81 mg Enteric Coated Tablet PO SCH (08:26)
[2021-10-14] MEDS: NIFEdipine XL 30 MG TAB PO SCH (08:26)
[2021-10-14] MEDS: Gabapentin 300 MG CAP PO SCH ×2 (08:26→20:47)
[2021-10-14] MEDS: Finasteride 5 MG TAB PO SCH (08:26)
[2021-10-14] MEDS: Carvedilol 25 MG TAB PO SCH ×2 (08:27→17:58)
[2021-10-14] MEDS: Enoxaparin Sodium 30 MG/0.3 ML SYRINGE SC SCH (08:27)
[2021-10-14] MEDS: Labetalol HCl 100 MG/20 ML VIAL SLOW IVP PRN (12:09)
[2021-10-14] MEDS: rOPINIRole HCl 1 MG TAB PO SCH (20:47)
[2021-10-14] MEDS: Atorvastatin Calcium 20 MG TAB PO SCH (20:48)
[2021-10-14] MEDS: Lantus 1000 UNITS/10 ML VIAL SC SCH (20:48)
[2021-10-14] MEDS: Tamsulosin HCl 0.4 MG CAP PO SCH (20:48)
[2021-10-15] MEDS: Gabapentin 300 MG CAP PO SCH ×2 (08:59→20:39)
[2021-10-15] MEDS: Enoxaparin Sodium 30 MG/0.3 ML SYRINGE SC SCH (08:59)
[2021-10-15] MEDS: Aspirin 81 mg Enteric Coated Tablet PO SCH (09:00)
[2021-10-15] MEDS: hydrALAZINE 25 MG TAB PO SCH ×3 (09:00→20:40)
[2021-10-15] MEDS: Finasteride 5 MG TAB PO SCH (09:00)
[2021-10-15] MEDS: NIFEdipine XL 30 MG TAB PO SCH ×2 (09:00→20:43)
[2021-10-15] MEDS: Carvedilol 25 MG TAB PO SCH ×2 (09:00→17:57)
[2021-10-15] MEDS: Tamsulosin HCl 0.4 MG CAP PO SCH (20:40)
[2021-10-15] MEDS: Atorvastatin Calcium 20 MG TAB PO SCH (20:43)
[2021-10-15] MEDS: rOPINIRole HCl 1 MG TAB PO SCH (20:47)
[2021-10-15] MEDS: Lantus 1000 UNITS/10 ML VIAL SC SCH (21:21)
[2021-10-16 05:20] LABS: Anion Gap 14 mmol/L (10-20); BUN (Urea Nitrogen) 62 mg/dL (8.4-25.7); Calc. Creatinine Clearance 25 mL/min (70-130); Calcium 8.3 mg/dL (7.8-10.44); Carbon Dioxide 21 mmol/L (23-31); Chloride 107 mmol/L (98-107); Glucose 78 mg/dL (83-110); Potassium 3.7 mmol/L (3.5-5.1); Sodium 138 mmol/L (136-145)
[2021-10-16] MEDS: Enoxaparin Sodium 30 MG/0.3 ML SYRINGE SC SCH (09:15)
[2021-10-16] MEDS: Aspirin 81 mg Enteric Coated Tablet PO SCH (09:15)
[2021-10-16] MEDS: hydrALAZINE 25 MG TAB PO SCH ×3 (09:15→20:48)
[2021-10-16] MEDS: Carvedilol 25 MG TAB PO SCH ×2 (09:15→16:50)
[2021-10-16] MEDS: Gabapentin 300 MG CAP PO SCH ×2 (09:15→20:47)
[2021-10-16] MEDS: Finasteride 5 MG TAB PO SCH (09:15)
[2021-10-16] MEDS: NIFEdipine XL 30 MG TAB PO SCH ×2 (09:16→20:48)
[2021-10-16] MEDS: rOPINIRole HCl 1 MG TAB PO SCH (20:48)
[2021-10-16] MEDS: Tamsulosin HCl 0.4 MG CAP PO SCH (20:48)
[2021-10-16] MEDS: HYDROcodone/Acetaminophen 5/325 mg Tablet PO PRN (20:48)
[2021-10-16] MEDS: Atorvastatin Calcium 20 MG TAB PO SCH (20:48)
[2021-10-16] MEDS: Lantus 1000 UNITS/10 ML VIAL SC SCH (20:53)
[2021-10-17 05:16] LABS: Anion Gap 13 mmol/L (10-20); BUN (Urea Nitrogen) 75 mg/dL (8.4-25.7); Calc. Creatinine Clearance 23 mL/min (70-130); Calcium 7.8 mg/dL (7.8-10.44); Carbon Dioxide 19 mmol/L (23-31); Chloride 106 mmol/L (98-107); Glucose 142 mg/dL (83-110); Potassium 3.6 mmol/L (3.5-5.1); Sodium 134 mmol/L (136-145)
[2021-10-17] MEDS: NIFEdipine XL 30 MG TAB PO SCH ×2 (08:45→20:34)
[2021-10-17] MEDS: Finasteride 5 MG TAB PO SCH (08:46)
[2021-10-17] MEDS: Aspirin 81 mg Enteric Coated Tablet PO SCH (08:46)
[2021-10-17] MEDS: Enoxaparin Sodium 30 MG/0.3 ML SYRINGE SC SCH (08:47)
[2021-10-17] MEDS: Gabapentin 300 MG CAP PO SCH ×2 (08:47→20:34)
[2021-10-17] MEDS: hydrALAZINE 25 MG TAB PO SCH ×3 (08:47→20:40)
[2021-10-17 08:58] LABS: #Eosinphils 0.1 thou/uL (0.0-0.7); #Monocytes 0.3 thou/uL (0.11-0.59); #Neutrophils 3.2 thou/uL (1.40-6.50); %Basophils 0.7 % (0.0-1.0); %Eosinophils 2.7 % (0.0-10.0); %Lymphocytes 20.5 % (21.0-51.0); %Monocytes 7.4 % (0.0-10.0); %Neutrophils 68.8 % (42.0-75.0); Hemoglobin 11.2 g/dL (14.0-18.0); Mean Corpuscular HGB CONC 33.1 g/dL (32.0-36.0); Mean Corpuscular Hemoglobin 29.9 pg (27.0-31.0); Mean Corpuscular Volume 90.2 fL (78.0-98.0); Mean Platelet Volume 9.4 fL (7.4-10.4); Platelet Count 126 thou/uL (130-400); Red Blood Cell (RBC) Count 3.74 mill/uL (4.70-6.10); White Blood Cell (WBC) Count 4.7 thou/uL (4.8-10.8)
[2021-10-17] MEDS: Carvedilol 25 MG TAB PO SCH ×2 (10:05→15:45)
[2021-10-17] MEDS: Sodium Chloride 0.9% 1,000 ML IV SCH (13:11)
[2021-10-17] MEDS ORDERED: Furosemide 40 MG/4 ML VIAL SLOW IVP SCH (13:30)
[2021-10-17 15:16] LABS: SARS-CoV-2 PCR by NAA Not Detected (NotDetected)
[2021-10-17] MEDS: HumaLOG 300 UNITS/3 ML VIAL SC PRN (18:49)
[2021-10-17] MEDS: rOPINIRole HCl 1 MG TAB PO SCH (20:34)
[2021-10-17] MEDS: Atorvastatin Calcium 20 MG TAB PO SCH (20:34)
[2021-10-17] MEDS: Lantus 1000 UNITS/10 ML VIAL SC SCH (20:35)
[2021-10-17] MEDS: HYDROcodone/Acetaminophen 5/325 mg Tablet PO PRN (20:35)
[2021-10-17] MEDS: Tamsulosin HCl 0.4 MG CAP PO SCH (20:35)
[2021-10-18] MEDS: Sodium Chloride 0.9% 1,000 ML IV SCH (05:20)
[2021-10-18 05:29] LABS: Anion Gap 15 mmol/L (10-20); BUN (Urea Nitrogen) 81 mg/dL (8.4-25.7); Calc. Creatinine Clearance 21 mL/min (70-130); Calcium 7.6 mg/dL (7.8-10.44); Carbon Dioxide 20 mmol/L (23-31); Chloride 104 mmol/L (98-107); Glucose 165 mg/dL (83-110); Potassium 3.7 mmol/L (3.5-5.1); Sodium 135 mmol/L (136-145)
[2021-10-18] MEDS: Carvedilol 25 MG TAB PO SCH (09:10)
[2021-10-18] MEDS: NIFEdipine XL 30 MG TAB PO SCH (09:10)
[2021-10-18] MEDS: Finasteride 5 MG TAB PO SCH (09:10)
[2021-10-18] MEDS: Aspirin 81 mg Enteric Coated Tablet PO SCH (09:10)
[2021-10-18] MEDS: Gabapentin 300 MG CAP PO SCH (09:11)
[2021-10-18] MEDS: hydrALAZINE 25 MG TAB PO SCH (09:11)
[2021-10-18] MEDS: Enoxaparin Sodium 30 MG/0.3 ML SYRINGE SC SCH (09:11)
[2021-10-18 12:24] VITALS: BP 147/70; TEMP 97.6
== END 2021-10-18 14:47 | DRG 291 ==
LOC: ERS 20:50 → ERHOLD 10-10 01:07 → 2NO 10-10 15:50 → OBSVTOIN 10-11 14:00
PROVIDERS: ADMIT Internal Medicine; ATTEND Internal Medicine
DX: I13.0 Hypertensive heart and chronic kidney disease with heart failure and stage 1 through stage 4 chronic kidney disease, or unspecified chronic kidney disease (principal); I50.33 Acute on chronic diastolic (congestive) heart failure; N18.4 Chronic kidney disease, stage 4 (severe); Z20.822 Contact with and (suspected) exposure to COVID-19; N17.9 Acute kidney failure, unspecified; E11.22 Type 2 diabetes mellitus with diabetic chronic kidney disease; N40.0 Benign prostatic hyperplasia without lower urinary tract symptoms; E66.9 Obesity, unspecified; I25.10 Atherosclerotic heart disease of native coronary artery without angina pectoris; D63.1 Anemia in chronic kidney disease; E88.09 Other disorders of plasma-protein metabolism, not elsewhere classified; E78.5 Hyperlipidemia, unspecified; E78.00 Pure hypercholesterolemia, unspecified; K21.9 Gastro-esophageal reflux disease without esophagitis; E87.6 Hypokalemia; I34.0 Nonrheumatic mitral (valve) insufficiency; Z87.01 Personal history of pneumonia (recurrent); Z79.82 Long term (current) use of aspirin; Z79.4 Long term (current) use of insulin; Z79.899 Other long term (current) drug therapy; Z86.73 Personal history of transient ischemic attack (TIA), and cerebral infarction without residual deficits; Z90.49 Acquired absence of other specified parts of digestive tract; Z98.52 Vasectomy status; Z79.1 Long term (current) use of non-steroidal anti-inflammatories (NSAID); Z68.35 Body mass index [BMI] 35.0-35.9, adult
CPT/HCPCS: 36415; 36416; 71045; 76770; 80048; 80053; 80061; 81003; 81015; 82570; 83880; 84300; 84484; 85025; 93005; 93306; 93970; 96372; 96374; 96375; 96376; G0378; J0360; J1650; J1815; J1940; J7030; J7050; U0002; U0003; U0005

== ENCOUNTER 2022-04-18 17:16 | Inpatient (IN) | payer MEDICARE ==
[2022-04-18] MEDS ORDERED: DOBUTamine 500 mg/250 ml 250 ML ONE (18:24)
[2022-04-18 18:46] LABS: ALT (SGPT) 34 U/L (8-55); AST (SGOT) 28 U/L (5-34); Albumin 3.4 g/dL (3.4-4.8); Alkaline Phosphatase 56 U/L (40-110); Anion Gap 19 mmol/L (10-20); BUN (Urea Nitrogen) 96 mg/dL (8.4-25.7); Bilirubin, Total 0.4 mg/dL (0.2-1.2); Calc. Creatinine Clearance 0 mL/min (70-130); Calcium 8.3 mg/dL (7.8-10.44); Carbon Dioxide 21 mmol/L (23-31); Chloride 106 mmol/L (98-107); Estimated GFR 16; Globulin 2.6 g/dL (2.4-3.5); Glucose 115 mg/dL (83-110); Potassium 4.6 mmol/L (3.5-5.1); Sodium 141 mmol/L (136-145)
[2022-04-18] MEDS ORDERED: Ondansetron PF 4 MG/2 ML Vial IVP PRN (18:48)
[2022-04-18] MEDS ORDERED: Dextrose 50% Abboject 50 ML SYRINGE SLOW IVP PRN (18:48)
[2022-04-18] MEDS ORDERED: Ondansetron ODT 4 MG TAB PO PRN (18:48)
[2022-04-18] MEDS ORDERED: Acetaminophen 325 MG TAB PO PRN (18:48)
[2022-04-18] MEDS ORDERED: HYDROcodone/Acetaminophen 5/325 mg Tablet PO PRN (18:48)
[2022-04-18] MEDS ORDERED: Dextrose 5% in Water 1,000 ML IV PRN (18:48)
[2022-04-18] MEDS ORDERED: DOBUTamine 500 mg/250 ml 250 ML IVPB SCH ×2 (19:30→21:30)
[2022-04-18] MEDS ORDERED: Albuterol Sulfate 2.5 mg/3 ml Neb NEB PRN (19:32)
[2022-04-18 20:15] LABS: SARS-CoV-2 NAA Rapid Test Not Detected (NotDetected)
[2022-04-18 20:45] VITALS: BMI 28.5
[2022-04-18] MEDS ORDERED: Sodium Chloride 0.9% 1,000 ML IV SCH (21:45)
[2022-04-18] MEDS ORDERED: Dextrose 5% in Water 1,000 ML IV SCH (23:00)
[2022-04-18] MEDS: Dextrose 10% in Water 1,000 ML IV SCH (23:13)
[2022-04-19 00:05] LABS: Magnesium 1.9 mg/dL (1.6-2.6)
[2022-04-19 04:07] LABS: #Eosinphils 0.2 thou/uL (0.0-0.7); #Lymphocytes 1.3 thou/uL (1.20-3.40); #Monocytes 0.4 thou/uL (0.11-0.59); #Neutrophils 3.2 thou/uL (1.40-6.50); %Basophils 0.6 % (0.0-1.0); %Eosinophils 3.8 % (0.0-10.0); %Lymphocytes 25.9 % (21.0-51.0); %Monocytes 8.1 % (0.0-10.0); %Neutrophils 61.6 % (42.0-75.0); Mean Corpuscular HGB CONC 32.1 g/dL (32.0-36.0); Mean Corpuscular Hemoglobin 29.2 pg (27.0-31.0); Mean Platelet Volume 10.8 fL (7.4-10.4); Platelet Count 97 thou/uL (130-400); RBC Distribution Width 16.6 % (11.5-14.5); Red Blood Cell (RBC) Count 3.78 mill/uL (4.70-6.10); White Blood Cell (WBC) Count 5.1 thou/uL (4.8-10.8)
[2022-04-19 04:27] LABS: ALT (SGPT) 29 U/L (8-55); AST (SGOT) 22 U/L (5-34); Albumin 3.2 g/dL (3.4-4.8); Alkaline Phosphatase 53 U/L (40-110); Anion Gap 18 mmol/L (10-20); BUN (Urea Nitrogen) 89 mg/dL (8.4-25.7); Bilirubin, Total 0.5 mg/dL (0.2-1.2); Calc. Creatinine Clearance 21 mL/min (70-130); Calcium 8.6 mg/dL (7.8-10.44); Carbon Dioxide 20 mmol/L (23-31); Chloride 106 mmol/L (98-107); Estimated GFR 18; Globulin 2.9 g/dL (2.4-3.5); Glucose 109 mg/dL (83-110); Potassium 4.1 mmol/L (3.5-5.1); Protein, Total 6.1 g/dL (5.8-8.1); Sodium 140 mmol/L (136-145)
[2022-04-19] MEDS ORDERED: Enoxaparin Sodium 30 MG/0.3 ML SYRINGE SC SCH (09:00)
[2022-04-19] MEDS ORDERED: Furosemide 40 MG TAB PO SCH (09:00)
[2022-04-19] MEDS: Famotidine/PF 20 mg/2ml Vial SLOW IVP SCH (10:43)
[2022-04-19] MEDS ORDERED: Vancomycin 1.5 GRAM/300 ML BAG 1.5 GM in Premix Bag 1 BAG IVPB SCH (12:00)
[2022-04-19] MEDS ORDERED: CEFAZOLIN 1 GM VIAL ONE (12:30)
[2022-04-19] MEDS ORDERED: Lidocaine 1% (PF) 30 ML VIAL ONE (12:30)
[2022-04-19] MEDS ORDERED: Gentamicin 80 MG/2 ML VIAL ONE (12:30)
[2022-04-19] MEDS ORDERED: fentaNYL Citrate/PF 100 MCG/2 ML SYRINGE ONE (13:33)
[2022-04-19] MEDS ORDERED: Ketamine 50 MG/ML (10ML VIAL) ONE (13:34)
[2022-04-19] MEDS ORDERED: Calcium Chloride 1 GM/10 ML Abboject SYRINGE ONE (14:00)
[2022-04-19] MEDS ORDERED: ePHEDrine 50 MG/ML VIAL ONE (14:00)
[2022-04-19] MEDS ORDERED: PROPOFOL 200 MG/20 ML VIAL ONE (14:00)
[2022-04-19] MEDS: Dextrose 10% in Water 1,000 ML IV SCH (18:45)
[2022-04-19] MEDS: Cepastat Lozenges 1 LOZ PO PRN (21:20)
[2022-04-20 04:03] LABS: Anion Gap 19 mmol/L (10-20); BUN (Urea Nitrogen) 80 mg/dL (8.4-25.7); Calc. Creatinine Clearance 22 mL/min (70-130); Carbon Dioxide 21 mmol/L (23-31); Chloride 105 mmol/L (98-107); Estimated GFR 19; Glucose 174 mg/dL (83-110); Potassium 3.9 mmol/L (3.5-5.1); Sodium 141 mmol/L (136-145)
[2022-04-20] MEDS: HumaLOG 300 UNITS/3 ML VIAL SC PRN ×3 (06:29→16:15)
[2022-04-20] MEDS: Famotidine/PF 20 mg/2ml Vial SLOW IVP SCH ×2 (08:48→08:50)
[2022-04-20] MEDS: Cepastat Lozenges 1 LOZ PO PRN (08:49)
[2022-04-20] MEDS: Aspirin 81 mg Enteric Coated Tablet PO SCH (08:50)
[2022-04-20] MEDS: Finasteride 5 MG TAB PO SCH (08:50)
[2022-04-20] MEDS: Doxycycline 100 MG CAP PO SCH ×2 (08:50→19:40)
[2022-04-20] MEDS: Furosemide 40 MG TAB PO SCH ×2 (08:50→16:05)
[2022-04-20] MEDS: Potassium Chloride 10 MEQ TAB PO SCH ×2 (08:50→16:05)
[2022-04-20] MEDS: Tamsulosin HCl 0.4 MG CAP PO SCH (08:51)
[2022-04-20] MEDS: Carvedilol 3.125 MG TAB PO SCH ×2 (08:51→16:05)
[2022-04-20] MEDS: Atorvastatin Calcium 10 MG TAB PO SCH (19:40)
[2022-04-20] MEDS: Gabapentin 300 MG CAP PO SCH (19:40)
[2022-04-20] MEDS: traZODone HCl 50 MG TAB PO PRN (19:40)
[2022-04-21 06:00] LABS: #Monocytes 0.6 thou/uL (0.11-0.59); #Neutrophils 5.1 thou/uL (1.40-6.50); %Basophils 0.4 % (0.0-1.0); %Eosinophils 0.4 % (0.0-10.0); %Lymphocytes 15.1 % (21.0-51.0); %Monocytes 8.6 % (0.0-10.0); %Neutrophils 75.5 % (42.0-75.0); Hemoglobin 11.1 g/dL (14.0-18.0); Mean Corpuscular HGB CONC 31.3 g/dL (32.0-36.0); Mean Corpuscular Hemoglobin 28.8 pg (27.0-31.0); Mean Corpuscular Volume 91.7 fL (78.0-98.0); Mean Platelet Volume 11.1 fL (7.4-10.4); Platelet Count 87 thou/uL (130-400); RBC Distribution Width 16.8 % (11.5-14.5); Red Blood Cell (RBC) Count 3.86 mill/uL (4.70-6.10); White Blood Cell (WBC) Count 6.8 thou/uL (4.8-10.8)
[2022-04-21 06:19] LABS: Anion Gap 19 mmol/L (10-20); BUN (Urea Nitrogen) 85 mg/dL (8.4-25.7); Calc. Creatinine Clearance 21 mL/min (70-130); Calcium 9.2 mg/dL (7.8-10.44); Carbon Dioxide 20 mmol/L (23-31); Chloride 106 mmol/L (98-107); Estimated GFR 18; Glucose 162 mg/dL (83-110); Potassium 3.9 mmol/L (3.5-5.1); Sodium 141 mmol/L (136-145)
[2022-04-21] MEDS: Tamsulosin HCl 0.4 MG CAP PO SCH (09:41)
[2022-04-21] MEDS: Doxycycline 100 MG CAP PO SCH ×2 (09:41→20:49)
[2022-04-21] MEDS: Famotidine/PF 20 mg/2ml Vial SLOW IVP SCH (09:41)
[2022-04-21] MEDS: Finasteride 5 MG TAB PO SCH (09:41)
[2022-04-21] MEDS: Potassium Chloride 10 MEQ TAB PO SCH ×2 (09:42→17:59)
[2022-04-21] MEDS: Aspirin 81 mg Enteric Coated Tablet PO SCH (09:42)
[2022-04-21] MEDS: Carvedilol 3.125 MG TAB PO SCH (09:42)
[2022-04-21] MEDS: Furosemide 40 MG TAB PO SCH ×2 (09:42→12:42)
[2022-04-21] MEDS: HumaLOG 300 UNITS/3 ML VIAL SC PRN (12:37)
[2022-04-21] MEDS ORDERED: Carvedilol 3.125 MG TAB PO SCH (12:45)
[2022-04-21] MEDS: Carvedilol 6.25 MG TAB PO SCH (17:59)
[2022-04-21] MEDS: Atorvastatin Calcium 10 MG TAB PO SCH (20:50)
[2022-04-21] MEDS: traZODone HCl 50 MG TAB PO PRN (20:50)
[2022-04-21] MEDS: Gabapentin 300 MG CAP PO SCH (20:51)
[2022-04-22 06:05] LABS: #Eosinphils 0.1 thou/uL (0.0-0.7); #Monocytes 0.5 thou/uL (0.11-0.59); #Neutrophils 5.1 thou/uL (1.40-6.50); %Basophils 0.3 % (0.0-1.0); %Eosinophils 0.8 % (0.0-10.0); %Lymphocytes 14.4 % (21.0-51.0); %Neutrophils 76.4 % (42.0-75.0); Hemoglobin 10.9 g/dL (14.0-18.0); Mean Corpuscular HGB CONC 30.5 g/dL (32.0-36.0); Mean Corpuscular Hemoglobin 27.9 pg (27.0-31.0); Mean Corpuscular Volume 91.6 fL (78.0-98.0); Mean Platelet Volume 11.4 fL (7.4-10.4); Platelet Count 83 thou/uL (130-400); Red Blood Cell (RBC) Count 3.88 mill/uL (4.70-6.10); White Blood Cell (WBC) Count 6.7 thou/uL (4.8-10.8)
[2022-04-22 06:15] LABS: Anion Gap 19 mmol/L (10-20); BUN (Urea Nitrogen) 97 mg/dL (8.4-25.7); Calc. Creatinine Clearance 19 mL/min (70-130); Calcium 9.3 mg/dL (7.8-10.44); Carbon Dioxide 19 mmol/L (23-31); Chloride 107 mmol/L (98-107); Estimated GFR 16; Glucose 169 mg/dL (83-110); Potassium 4.3 mmol/L (3.5-5.1); Sodium 141 mmol/L (136-145)
[2022-04-22 08:13] LABS: Hemoglobin A1c 6.4 % (4.0-6.0)
[2022-04-22] MEDS: Aspirin 81 mg Enteric Coated Tablet PO SCH (09:58)
[2022-04-22] MEDS: Finasteride 5 MG TAB PO SCH (09:58)
[2022-04-22] MEDS: Doxycycline 100 MG CAP PO SCH (09:58)
[2022-04-22] MEDS: Potassium Chloride 10 MEQ TAB PO SCH ×2 (09:58→17:38)
[2022-04-22] MEDS: Famotidine/PF 20 mg/2ml Vial SLOW IVP SCH (09:58)
[2022-04-22] MEDS: Furosemide 40 MG TAB PO SCH ×2 (09:58→14:16)
[2022-04-22] MEDS: Carvedilol 6.25 MG TAB PO SCH ×2 (09:58→17:37)
[2022-04-22] MEDS: Tamsulosin HCl 0.4 MG CAP PO SCH (09:58)
[2022-04-22] MEDS: HumaLOG 300 UNITS/3 ML VIAL SC PRN ×2 (17:38→22:45)
[2022-04-22] MEDS ORDERED: Cephalexin 250 MG CAP PO SCH (18:00)
[2022-04-22] MEDS ORDERED: hydrALAZINE 20 MG/ML VIAL SLOW IVP PRN (20:27)
[2022-04-22 20:51] LABS: ALT (SGPT) 50 U/L (8-55); AST (SGOT) 51 U/L (5-34); Albumin 3.3 g/dL (3.4-4.8); Alkaline Phosphatase 53 U/L (40-110); Bilirubin, Direct 0.3 mg/dL (0.1-0.3); Bilirubin, Total 0.5 mg/dL (0.2-1.2); Protein, Total 6.3 g/dL (5.8-8.1)
[2022-04-22 21:01] LABS: Actual Bicarbonate (HCO3v) 21 mEq/L (22-28); Analyzer IN Cardio ER; Base Excess -4.2 mEq/L (-2.0 to +3.0); Calcium, Ionized (venous) 1.16 mmol/L (1.16-1.32); Chloride (VBG) 107 mmol/L (98-106); Hemoglobin (Hb) 11.9 g/dL (12.6-17.4); Sodium 139.4 mmol/L (133-146); pH (venous) 7.36 (7.32-7.43)
[2022-04-22] MEDS: Cephalexin 250 MG CAP PO SCH (21:06)
[2022-04-22] MEDS: Atorvastatin Calcium 10 MG TAB PO SCH (21:06)
[2022-04-22] MEDS: Heparin 5,000 UNITS/ML VIAL SC SCH (21:42)
[2022-04-22 23:58] LABS: Bacteria/HPF None Seen HPF (None Seen); Bilirubin Negative (Negative); Blood, Urine Negative (Negative); Clarity Clear (Clear); Glucose, Urine (Dipstick) Normal (Negative); Ketone, Urine Negative (Negative); Leukocyte Negative Leu/uL (Negative); Nitrite Negative (Negative); Protein, Urine (Dipstick) 100 mg/dL (Neg-Trace); RBC/HPF 0-3 HPF (0-3); Specific Gravity, Urine 1.013 (1.002-1.036); Squamous Epithelial None Seen HPF (0-3); Urobilinogen Normal mg/dL (Less than 2); WBC/HPF 0-3 HPF (0-3); pH, Urine 5.5 (5.0-9.0)
[2022-04-22 23:59] LABS: Urine Culture Reflex No No
[2022-04-23 04:42] LABS: #Eosinphils 0.2 thou/uL (0.0-0.7); #Lymphocytes 1.1 thou/uL (1.20-3.40); #Monocytes 0.6 thou/uL (0.11-0.59); #Neutrophils 4.7 thou/uL (1.40-6.50); %Basophils 0.3 % (0.0-1.0); %Eosinophils 2.5 % (0.0-10.0); %Lymphocytes 16.4 % (21.0-51.0); %Monocytes 8.5 % (0.0-10.0); %Neutrophils 72.4 % (42.0-75.0); Hemoglobin 11.1 g/dL (14.0-18.0); Mean Corpuscular HGB CONC 31.2 g/dL (32.0-36.0); Mean Corpuscular Hemoglobin 28.4 pg (27.0-31.0); Mean Corpuscular Volume 90.8 fL (78.0-98.0); Platelet Count 80 thou/uL (130-400); RBC Distribution Width 16.9 % (11.5-14.5); Red Blood Cell (RBC) Count 3.91 mill/uL (4.70-6.10); White Blood Cell (WBC) Count 6.5 thou/uL (4.8-10.8)
[2022-04-23 04:59] LABS: ALT (SGPT) 46 U/L (8-55); AST (SGOT) 37 U/L (5-34); Albumin 3.2 g/dL (3.4-4.8); Alkaline Phosphatase 50 U/L (40-110); Anion Gap 18 mmol/L (10-20); BUN (Urea Nitrogen) 106 mg/dL (8.4-25.7); Bilirubin, Total 0.6 mg/dL (0.2-1.2); Calc. Creatinine Clearance 20 mL/min (70-130); Calcium 9.3 mg/dL (7.8-10.44); Carbon Dioxide 22 mmol/L (23-31); Cardiac Risk 3.7 (Less than 4.5); Chloride 108 mmol/L (98-107); Cholesterol 107 mg/dl (< 200 Desired); Estimated GFR 15; Glucose 135 mg/dL (83-110); HDL Cholesterol 29 mg/dL (>60 Neg Risk); LDL Cholesterol, Calculated 64 mg/dL; Magnesium 2.1 mg/dL (1.6-2.6); Potassium 3.6 mmol/L (3.5-5.1); Protein, Total 6.2 g/dL (5.8-8.1); Sodium 144 mmol/L (136-145); Triglycerides 70 mg/dL (Less than 150)
[2022-04-23] MEDS: Carvedilol 6.25 MG TAB PO SCH ×2 (09:04→16:05)
[2022-04-23] MEDS: Aspirin 81 mg Enteric Coated Tablet PO SCH (09:05)
[2022-04-23] MEDS: Potassium Chloride 10 MEQ TAB PO SCH ×2 (09:05→16:07)
[2022-04-23] MEDS: Furosemide 40 MG TAB PO SCH ×2 (09:06→15:04)
[2022-04-23] MEDS: Heparin 5,000 UNITS/ML VIAL SC SCH ×3 (09:06→20:39)
[2022-04-23] MEDS: Cephalexin 250 MG CAP PO SCH ×2 (09:06→20:38)
[2022-04-23] MEDS: Tamsulosin HCl 0.4 MG CAP PO SCH (09:08)
[2022-04-23] MEDS: Finasteride 5 MG TAB PO SCH (09:08)
[2022-04-23 11:33] LABS: Syphilis Antibody Nonreactive (Nonreactive); Syphilis Antibody Index 0.11 S/CO (<1.00 Non-Reactive)
[2022-04-23] MEDS: HumaLOG 300 UNITS/3 ML VIAL SC PRN ×2 (11:49→16:07)
[2022-04-23] MEDS: Atorvastatin Calcium 10 MG TAB PO SCH (20:38)
[2022-04-24] MEDS: HumaLOG 300 UNITS/3 ML VIAL SC PRN ×4 (05:49→20:16)
[2022-04-24 06:02] LABS: #Eosinphils 0.1 thou/uL (0.0-0.7); #Lymphocytes 0.8 thou/uL (1.20-3.40); #Monocytes 0.4 thou/uL (0.11-0.59); #Neutrophils 3.4 thou/uL (1.40-6.50); %Basophils 0.1 % (0.0-1.0); %Eosinophils 2.7 % (0.0-10.0); %Lymphocytes 17.1 % (21.0-51.0); %Monocytes 8.7 % (0.0-10.0); %Neutrophils 71.3 % (42.0-75.0); Hemoglobin 12.5 g/dL (14.0-18.0); Mean Corpuscular HGB CONC 30.5 g/dL (32.0-36.0); Mean Corpuscular Hemoglobin 28.5 pg (27.0-31.0); Mean Corpuscular Volume 93.4 fL (78.0-98.0); Mean Platelet Volume 11.3 fL (7.4-10.4); Platelet Count 90 thou/uL (130-400); RBC Distribution Width 17.4 % (11.5-14.5); Red Blood Cell (RBC) Count 4.38 mill/uL (4.70-6.10); White Blood Cell (WBC) Count 4.8 thou/uL (4.8-10.8)
[2022-04-24 06:28] LABS: ALT (SGPT) 47 U/L (8-55); AST (SGOT) 38 U/L (5-34); Albumin 3.2 g/dL (3.4-4.8); Alkaline Phosphatase 54 U/L (40-110); Anion Gap 21 mmol/L (10-20); BUN (Urea Nitrogen) 104 mg/dL (8.4-25.7); Bilirubin, Total 0.7 mg/dL (0.2-1.2); Calc. Creatinine Clearance 20 mL/min (70-130); Calcium 9.3 mg/dL (7.8-10.44); Carbon Dioxide 19 mmol/L (23-31); Chloride 108 mmol/L (98-107); Estimated GFR 16; Glucose 179 mg/dL (83-110); Potassium 3.6 mmol/L (3.5-5.1); Protein, Total 6.2 g/dL (5.8-8.1); Sodium 144 mmol/L (136-145)
[2022-04-24 06:46] LABS: HIV (1/2) Antibody/Antigen Non-Reactive (NonReactive); HIV 1/2 INDEX 0.16 S/CO (<1.00)
[2022-04-24] MEDS: Carvedilol 6.25 MG TAB PO SCH ×2 (08:50→16:56)
[2022-04-24] MEDS: Potassium Chloride 10 MEQ TAB PO SCH ×2 (08:51→16:57)
[2022-04-24] MEDS: Aspirin 81 mg Enteric Coated Tablet PO SCH (08:52)
[2022-04-24] MEDS: Cephalexin 250 MG CAP PO SCH ×2 (08:52→20:16)
[2022-04-24] MEDS: Finasteride 5 MG TAB PO SCH (08:53)
[2022-04-24] MEDS: Heparin 5,000 UNITS/ML VIAL SC SCH ×3 (08:53→20:16)
[2022-04-24] MEDS: Furosemide 80 MG TAB PO SCH ×2 (08:53→14:59)
[2022-04-24] MEDS: Tamsulosin HCl 0.4 MG CAP PO SCH (08:54)
[2022-04-24] MEDS: Atorvastatin Calcium 10 MG TAB PO SCH (20:16)
[2022-04-25 06:11] LABS: #Eosinphils 0.3 thou/uL (0.0-0.7); #Monocytes 0.5 thou/uL (0.11-0.59); #Neutrophils 3.8 thou/uL (1.40-6.50); %Basophils 0.2 % (0.0-1.0); %Eosinophils 4.9 % (0.0-10.0); %Lymphocytes 18.6 % (21.0-51.0); %Monocytes 8.7 % (0.0-10.0); %Neutrophils 67.7 % (42.0-75.0); Hemoglobin 12.3 g/dL (14.0-18.0); Mean Corpuscular HGB CONC 30.6 g/dL (32.0-36.0); Mean Corpuscular Hemoglobin 28.2 pg (27.0-31.0); Mean Corpuscular Volume 92.2 fL (78.0-98.0); Mean Platelet Volume 11.1 fL (7.4-10.4); Platelet Count 81 thou/uL (130-400); Red Blood Cell (RBC) Count 4.35 mill/uL (4.70-6.10); White Blood Cell (WBC) Count 5.6 thou/uL (4.8-10.8)
[2022-04-25 07:57] LABS: ALT (SGPT) 45 U/L (8-55); AST (SGOT) 34 U/L (5-34); Albumin 3.2 g/dL (3.4-4.8); Alkaline Phosphatase 52 U/L (40-110); Anion Gap 17 mmol/L (10-20); BUN (Urea Nitrogen) 103 mg/dL (8.4-25.7); Bilirubin, Total 0.8 mg/dL (0.2-1.2); Calc. Creatinine Clearance 21 mL/min (70-130); Carbon Dioxide 24 mmol/L (23-31); Chloride 104 mmol/L (98-107); Estimated GFR 17; Glucose 142 mg/dL (83-110); Magnesium 1.8 mg/dL (1.6-2.6); Potassium 3.3 mmol/L (3.5-5.1); Protein, Total 6.2 g/dL (5.8-8.1); Sodium 142 mmol/L (136-145)
[2022-04-25] MEDS: Furosemide 80 MG TAB PO SCH ×2 (08:01→14:27)
[2022-04-25] MEDS: Carvedilol 6.25 MG TAB PO SCH ×2 (08:01→17:06)
[2022-04-25] MEDS: Cephalexin 250 MG CAP PO SCH (08:01)
[2022-04-25] MEDS: Potassium Chloride 10 MEQ TAB PO SCH ×2 (08:01→17:06)
[2022-04-25] MEDS: Aspirin 81 mg Enteric Coated Tablet PO SCH (08:01)
[2022-04-25] MEDS: Finasteride 5 MG TAB PO SCH (08:02)
[2022-04-25] MEDS: Heparin 5,000 UNITS/ML VIAL SC SCH ×2 (08:02→14:27)
[2022-04-25] MEDS: Tamsulosin HCl 0.4 MG CAP PO SCH (08:02)
[2022-04-25] MEDS ORDERED: Potassium Chloride 20 MEQ TAB PO SCH (09:00)
[2022-04-25] MEDS: HumaLOG 300 UNITS/3 ML VIAL SC PRN ×2 (11:47→17:05)
[2022-04-25 16:06] VITALS: BP 158/95; TEMP 97.7
== END 2022-04-25 18:07 | disposition home or self-care (01) | DRG 226 ==
LOC: SUATTDRO 17:16 → ERS 17:16 → CCU 18:47 → IMCU/EMU 04-19 18:21 → SURG A 04-20 21:47
PROVIDERS: ADMIT Internal Medicine; ATTEND Family Medicine
PROC: 0JH609Z Insertion of Cardiac Resynchronization Defibrillator Pulse Generator into Chest Subcutaneous Tissue and Fascia, Open Approach (ICD-10-PCS; principal; 2022-04-19)
PROC: 02HK3KZ Insertion of Defibrillator Lead into Right Ventricle, Percutaneous Approach (ICD-10-PCS; 2022-04-19)
PROC: 02H63KZ Insertion of Defibrillator Lead into Right Atrium, Percutaneous Approach (ICD-10-PCS; 2022-04-19)
DX: I44.1 Atrioventricular block, second degree (principal); G93.41 Metabolic encephalopathy; I50.23 Acute on chronic systolic (congestive) heart failure; I13.0 Hypertensive heart and chronic kidney disease with heart failure and stage 1 through stage 4 chronic kidney disease, or unspecified chronic kidney disease; L03.115 Cellulitis of right lower limb; N17.9 Acute kidney failure, unspecified; N18.4 Chronic kidney disease, stage 4 (severe); E66.9 Obesity, unspecified; E11.22 Type 2 diabetes mellitus with diabetic chronic kidney disease; D63.1 Anemia in chronic kidney disease; E78.5 Hyperlipidemia, unspecified; N40.0 Benign prostatic hyperplasia without lower urinary tract symptoms; K76.0 Fatty (change of) liver, not elsewhere classified; I42.8 Other cardiomyopathies; K80.50 Calculus of bile duct without cholangitis or cholecystitis without obstruction; Z20.822 Contact with and (suspected) exposure to COVID-19; I47.2 Ventricular tachycardia; I49.01 Ventricular fibrillation; E11.65 Type 2 diabetes mellitus with hyperglycemia; D69.6 Thrombocytopenia, unspecified; G47.00 Insomnia, unspecified; R33.9 Retention of urine, unspecified; E87.6 Hypokalemia; Z79.82 Long term (current) use of aspirin; Z79.899 Other long term (current) drug therapy; Z79.51 Long term (current) use of inhaled steroids; Z79.4 Long term (current) use of insulin; Z90.49 Acquired absence of other specified parts of digestive tract; Z68.30 Body mass index [BMI] 30.0-30.9, adult
CPT/HCPCS: 33225; 33230; 33249; 36415; 36416; 70450; 71045; 71250; 74018; 74177; 76705; 80048; 80053; 80061; 80076; 81001; 82140; 82607; 82746; 82805; 83036; 83735; 84443; 85025; 86780; 86850; 86900; 86901; 87389; 93005; 93010; 93306; 94640; 96374; C1763; C1769; C1777; C1894; C1898; C1900; J0690; J1250; J1580; J1644; J1815; J2001; J2704; J3370; J3490; J7611; S0028; U0002; U0003; U0005

== ENCOUNTER 2022-11-12 20:05 | Inpatient (IN) | payer MEDICARE ==
[2022-11-13 00:28] VITALS: BMI 31.7
[2022-11-13] MEDS ORDERED: Dextrose 5% in Water 1,000 ML IV PRN (00:29)
[2022-11-13] MEDS ORDERED: Dextrose 50% Abboject 50 ML SYRINGE SLOW IVP PRN (00:29)
[2022-11-13] MEDS: Furosemide 40 MG/4 ML VIAL SLOW IVP SCH ×2 (05:25→15:40)
[2022-11-13 05:49] LABS: ALT (SGPT) 44 U/L (8-55); AST (SGOT) 27 U/L (5-34); Albumin 2.9 g/dL (3.4-4.8); Alkaline Phosphatase 43 U/L (40-110); Anion Gap 19 mmol/L (10-20); Bilirubin, Total 0.8 mg/dL (0.2-1.2); Calc. Creatinine Clearance 18 mL/min (70-130); Calcium 7.2 mg/dL (7.8-10.44); Carbon Dioxide 29 mmol/L (23-31); Chloride 90 mmol/L (98-107); Estimated GFR 13; Globulin 3.1 g/dL (2.4-3.5); Glucose 119 mg/dL (83-110); Magnesium 1.9 mg/dL (1.6-2.6); Potassium 2.9 mmol/L (3.5-5.1); Sodium 135 mmol/L (136-145)
[2022-11-13 06:01] LABS: BUN (Urea Nitrogen) 162 mg/dL (8.4-25.7)
[2022-11-13 06:27] LABS: #Lymphocytes 0.6 thou/uL (1.20-3.40); #Monocytes 0.3 thou/uL (0.11-0.59); #Neutrophils 1.5 thou/uL (1.40-6.50); %Basophils 0.2 % (0.0-1.0); %Eosinophils 0.1 % (0.0-10.0); %Lymphocytes 25.1 % (21.0-51.0); %Monocytes 12.8 % (0.0-10.0); %Neutrophils 61.9 % (42.0-75.0); Anisocytosis SLIGHT = 6-15 cells (100X) (0-5/hpf); Hemoglobin 8.2 g/dL (14.0-18.0); Hypochromia SLIGHT = 6-15 cells (100X) (0-5/hpf); MDiff Complete? YES; Mean Corpuscular HGB CONC 31.1 g/dL (32.0-36.0); Mean Corpuscular Volume 83.8 fl (78.0-98.0); Mean Platelet Volume 10.7 fL (7.4-10.4); Ovalocytes SLIGHT = 2-5 cells (100X) (0-1/hpf); Platelet Count 47 10x3/uL (130-400); Platelet Morphology Comment Appears Decreased; Polychromasia SLIGHT = 2-3 cells (100X) (0-2/hpf); RBC Distribution Width 19.8 % (11.5-14.5); Red Blood Cell (RBC) Count 3.16 mill/uL (4.70-6.10); White Blood Cell (WBC) Count 2.5 10x3/uL (4.8-10.8)
[2022-11-13] MEDS ORDERED: Potassium Chloride 40 MEQ in Premix Bag 1 BAG IVPB SCH (08:30)
[2022-11-13] MEDS: Potassium Chloride 20 MEQ TAB PO SCH ×2 (09:33→18:29)
[2022-11-13] MEDS: Aspirin 81 mg Enteric Coated Tablet PO SCH (09:33)
[2022-11-13] MEDS: Finasteride 5 MG TAB PO SCH (09:33)
[2022-11-13] MEDS: Carvedilol 3.125 MG TAB PO SCH ×2 (09:33→18:30)
[2022-11-13] MEDS ORDERED: Polyethylene Glycol 3350 17 GM Packet PO PRN (11:26)
[2022-11-13 16:07] LABS: Anion Gap 18 mmol/L (10-20); Calc. Creatinine Clearance 19 mL/min (70-130); Calcium 7.4 mg/dL (7.8-10.44); Carbon Dioxide 32 mmol/L (23-31); Chloride 90 mmol/L (98-107); Estimated GFR 14; Glucose 113 mg/dL (83-110); Phosphorus 6.8 mg/dL (2.3-4.7); Potassium 3.4 mmol/L (3.5-5.1); Sodium 137 mmol/L (136-145)
[2022-11-13] MEDS ORDERED: Potassium Chloride 20 MEQ TAB PO SCH (16:15)
[2022-11-13 16:18] LABS: BUN (Urea Nitrogen) 157 mg/dL (8.4-25.7)
[2022-11-13] MEDS ORDERED: EPOETIN ALFA-EPBX (ESRD) 10,000 UNIT/ML VIAL SC SCH (18:00)
[2022-11-13] MEDS: Atorvastatin Calcium 10 MG TAB PO SCH (20:41)
[2022-11-13] MEDS: Gabapentin 300 MG CAP PO SCH (20:42)
[2022-11-13] MEDS: Tamsulosin HCl 0.4 MG CAP PO SCH (20:43)
[2022-11-14] MEDS: Furosemide 40 MG/4 ML VIAL SLOW IVP SCH (06:47)
[2022-11-14] MEDS ORDERED: Potassium Chloride 20 MEQ TAB PO SCH (08:00)
[2022-11-14 09:02] LABS: Hemoglobin 9.3 g/dL (14.0-18.0); Mean Corpuscular HGB CONC 30.3 g/dL (32.0-36.0); Mean Corpuscular Hemoglobin 26.3 pg (27.0-31.0); Mean Corpuscular Volume 86.9 fl (78.0-98.0); Mean Platelet Volume 9.3 fL (7.4-10.4); Platelet Count 57 10x3/uL (130-400); RBC Distribution Width 19.7 % (11.5-14.5); Red Blood Cell (RBC) Count 3.54 mill/uL (4.70-6.10); White Blood Cell (WBC) Count 2.9 10x3/uL (4.8-10.8)
[2022-11-14 09:26] LABS: ALT (SGPT) 37 U/L (8-55); AST (SGOT) 21 U/L (5-34); Albumin 3.1 g/dL (3.4-4.8); Alkaline Phosphatase 50 U/L (40-110); Anion Gap 21 mmol/L (10-20); Bilirubin, Total 1.1 mg/dL (0.2-1.2); Calc. Creatinine Clearance 18 mL/min (70-130); Calcium 7.4 mg/dL (7.8-10.44); Carbon Dioxide 26 mmol/L (23-31); Chloride 93 mmol/L (98-107); Estimated GFR 13; Globulin 3.4 g/dL (2.4-3.5); Glucose 124 mg/dL (83-110); Magnesium 1.9 mg/dL (1.6-2.6); Potassium 3.6 mmol/L (3.5-5.1); Protein, Total 6.5 g/dL (5.8-8.1); Sodium 136 mmol/L (136-145)
[2022-11-14 09:28] LABS: Iron 36 ug/dL (65-175); Iron Binding Capacity, Total 349 mcg/dL (261-462)
[2022-11-14 09:38] LABS: BUN (Urea Nitrogen) 162 mg/dL (8.4-25.7)
[2022-11-14] MEDS: Aspirin 81 mg Enteric Coated Tablet PO SCH ×2 (10:00→11:50)
[2022-11-14] MEDS: Carvedilol 3.125 MG TAB PO SCH ×2 (10:00→17:36)
[2022-11-14] MEDS: Potassium Chloride 20 MEQ TAB PO SCH ×2 (10:00→17:36)
[2022-11-14] MEDS: Finasteride 5 MG TAB PO SCH (10:00)
[2022-11-14] MEDS: Furosemide 80 MG TAB PO SCH ×2 (10:01→14:12)
[2022-11-14 10:32] LABS: Band 2 % (5-11); Hypochromia SLIGHT = 6-15 cells (100X) (0-5/hpf); Lymphocytes 28 % (21-51); MDiff Complete? YES; Monocytes 2 % (0-10); Neutrophil 66 % (42-75); Platelet Morphology Comment Appears Decreased; Polychromasia SLIGHT = 2-3 cells (100X) (0-2/hpf)
[2022-11-14] MEDS: HumaLOG 300 UNITS/3 ML VIAL SC PRN (11:24)
[2022-11-14] MEDS: Atorvastatin Calcium 10 MG TAB PO SCH (20:27)
[2022-11-14] MEDS: Tamsulosin HCl 0.4 MG CAP PO SCH (20:27)
[2022-11-14] MEDS: Gabapentin 300 MG CAP PO SCH (20:27)
[2022-11-15 04:18] LABS: #Lymphocytes 0.7 thou/uL (1.20-3.40); #Monocytes 0.3 thou/uL (0.11-0.59); #Neutrophils 2.2 thou/uL (1.40-6.50); %Basophils 0.5 % (0.0-1.0); %Lymphocytes 20.8 % (21.0-51.0); %Monocytes 9.1 % (0.0-10.0); %Neutrophils 69.6 % (42.0-75.0); Hemoglobin 9.3 g/dL (14.0-18.0); Mean Corpuscular HGB CONC 30.3 g/dL (32.0-36.0); Mean Corpuscular Hemoglobin 26.3 pg (27.0-31.0); Mean Corpuscular Volume 86.7 fl (78.0-98.0); Mean Platelet Volume 10.8 fL (7.4-10.4); Platelet Count 50 10x3/uL (130-400); RBC Distribution Width 19.8 % (11.5-14.5); Red Blood Cell (RBC) Count 3.54 mill/uL (4.70-6.10); White Blood Cell (WBC) Count 3.2 10x3/uL (4.8-10.8)
[2022-11-15 04:31] LABS: ALT (SGPT) 30 U/L (8-55); AST (SGOT) 18 U/L (5-34); Albumin 3.2 g/dL (3.4-4.8); Alkaline Phosphatase 51 U/L (40-110); Anion Gap 18 mmol/L (10-20); Calc. Creatinine Clearance 18 mL/min (70-130); Calcium 7.2 mg/dL (7.8-10.44); Carbon Dioxide 27 mmol/L (23-31); Chloride 93 mmol/L (98-107); Estimated GFR 13; Globulin 3.3 g/dL (2.4-3.5); Glucose 179 mg/dL (83-110); Potassium 3.4 mmol/L (3.5-5.1); Protein, Total 6.5 g/dL (5.8-8.1); Sodium 135 mmol/L (136-145)
[2022-11-15 04:42] LABS: BUN (Urea Nitrogen) 141 mg/dL (8.4-25.7)
[2022-11-15] MEDS: HumaLOG 300 UNITS/3 ML VIAL SC PRN ×2 (06:32→17:12)
[2022-11-15] MEDS: Potassium Chloride 20 MEQ TAB PO SCH ×2 (09:51→17:12)
[2022-11-15] MEDS: Carvedilol 3.125 MG TAB PO SCH ×2 (09:52→17:12)
[2022-11-15] MEDS: Metolazone 5 MG TAB PO SCH (09:52)
[2022-11-15] MEDS: Furosemide 80 MG TAB PO SCH ×2 (09:52→14:57)
[2022-11-15] MEDS: Ferrous Gluconate 324 MG TAB PO SCH (09:52)
[2022-11-15] MEDS: Finasteride 5 MG TAB PO SCH (09:52)
[2022-11-15] MEDS: Aspirin 81 mg Enteric Coated Tablet PO SCH (10:00)
[2022-11-15] MEDS ORDERED: HumaLOG 300 UNITS/3 ML VIAL SC PRN (20:41)
[2022-11-15] MEDS: Atorvastatin Calcium 10 MG TAB PO SCH (20:59)
[2022-11-15] MEDS: Tamsulosin HCl 0.4 MG CAP PO SCH (20:59)
[2022-11-15] MEDS: Gabapentin 300 MG CAP PO SCH (20:59)
[2022-11-16 04:56] LABS: ALT (SGPT) 26 U/L (8-55); AST (SGOT) 15 U/L (5-34); Alkaline Phosphatase 50 U/L (40-110); Anion Gap 18 mmol/L (10-20); Calc. Creatinine Clearance 18 mL/min (70-130); Calcium 7.5 mg/dL (7.8-10.44); Carbon Dioxide 29 mmol/L (23-31); Chloride 93 mmol/L (98-107); Estimated GFR 13; Globulin 3.4 g/dL (2.4-3.5); Glucose 183 mg/dL (83-110); Potassium 3.1 mmol/L (3.5-5.1); Protein, Total 6.4 g/dL (5.8-8.1); Sodium 137 mmol/L (136-145)
[2022-11-16 05:07] LABS: BUN (Urea Nitrogen) 137 mg/dL (8.4-25.7)
[2022-11-16 05:24] LABS: Band 3 % (5-11); Hemoglobin 8.9 g/dL (14.0-18.0); Hypochromia SLIGHT = 6-15 cells (100X) (0-5/hpf); Large Platelets SLIGHT; Lymphocytes 11 % (21-51); MDiff Complete? YES; Mean Corpuscular HGB CONC 30.9 g/dL (32.0-36.0); Mean Corpuscular Hemoglobin 26.6 pg (27.0-31.0); Mean Corpuscular Volume 86.1 fl (78.0-98.0); Mean Platelet Volume 12.9 fL (7.4-10.4); Monocytes 12 % (0-10); Neutrophil 74 % (42-75); Platelet Count 53 10x3/uL (130-400); Platelet Morphology Comment Appears Decreased; Polychromasia SLIGHT = 2-3 cells (100X) (0-2/hpf); RBC Distribution Width 19.8 % (11.5-14.5); Red Blood Cell (RBC) Count 3.33 mill/uL (4.70-6.10); White Blood Cell (WBC) Count 4.3 10x3/uL (4.8-10.8)
[2022-11-16] MEDS: HumaLOG 300 UNITS/3 ML VIAL SC PRN ×2 (06:08→17:00)
[2022-11-16] MEDS: Potassium Chloride 20 MEQ TAB PO SCH ×2 (09:02→15:46)
[2022-11-16] MEDS: Carvedilol 3.125 MG TAB PO SCH ×2 (09:02→15:46)
[2022-11-16] MEDS: Finasteride 5 MG TAB PO SCH (09:02)
[2022-11-16] MEDS: Furosemide 80 MG TAB PO SCH ×2 (09:02→12:35)
[2022-11-16] MEDS: Ferrous Gluconate 324 MG TAB PO SCH (09:02)
[2022-11-16] MEDS: Acetaminophen 325 MG TAB PO PRN (21:12)
[2022-11-16] MEDS: Gabapentin 300 MG CAP PO SCH (21:12)
[2022-11-16] MEDS: Tamsulosin HCl 0.4 MG CAP PO SCH (21:12)
[2022-11-16] MEDS: Atorvastatin Calcium 10 MG TAB PO SCH (21:13)
[2022-11-17 05:32] LABS: ALT (SGPT) 22 U/L (8-55); AST (SGOT) 14 U/L (5-34); Alkaline Phosphatase 48 U/L (40-110); Anion Gap 18 mmol/L (10-20); Bilirubin, Total 1.3 mg/dL (0.2-1.2); Calc. Creatinine Clearance 18 mL/min (70-130); Calcium 7.8 mg/dL (7.8-10.44); Carbon Dioxide 31 mmol/L (23-31); Chloride 90 mmol/L (98-107); Estimated GFR 13; Globulin 3.5 g/dL (2.4-3.5); Glucose 166 mg/dL (83-110); Potassium 2.7 mmol/L (3.5-5.1); Protein, Total 6.5 g/dL (5.8-8.1); Sodium 136 mmol/L (136-145)
[2022-11-17 05:43] LABS: BUN (Urea Nitrogen) 132 mg/dL (8.4-25.7)
[2022-11-17 05:53] LABS: Band 6 % (5-11); Hemoglobin 9.7 g/dL (14.0-18.0); Hypochromia SLIGHT = 6-15 cells (100X) (0-5/hpf); Lymphocytes 34 % (21-51); MDiff Complete? YES; Mean Corpuscular HGB CONC 30.3 g/dL (32.0-36.0); Mean Corpuscular Hemoglobin 26.5 pg (27.0-31.0); Mean Corpuscular Volume 87.5 fl (78.0-98.0); Mean Platelet Volume 13.9 fL (7.4-10.4); Monocytes 6 % (0-10); Neutrophil 54 % (42-75); Platelet Count 58 10x3/uL (130-400); Platelet Morphology Comment Appears Decreased; RBC Distribution Width 19.9 % (11.5-14.5); Red Blood Cell (RBC) Count 3.68 mill/uL (4.70-6.10); White Blood Cell (WBC) Count 4.4 10x3/uL (4.8-10.8)
[2022-11-17 08:05] LABS: Magnesium 1.8 mg/dL (1.6-2.6)
[2022-11-17] MEDS ORDERED: Magnesium 2 GM/50 ML(in water) 2 GM in Premix Bag 1 BAG IVPB SCH (08:15)
[2022-11-17] MEDS ORDERED: Magnesium 2 GM/50 ML(in water) 1 GM in Premix Bag 1 BAG IVPB SCH (08:15)
[2022-11-17] MEDS: Ferrous Gluconate 324 MG TAB PO SCH (10:32)
[2022-11-17] MEDS: Carvedilol 3.125 MG TAB PO SCH ×2 (10:32→16:32)
[2022-11-17] MEDS: Potassium Chloride 20 MEQ TAB PO SCH ×2 (10:32→16:33)
[2022-11-17] MEDS: Furosemide 80 MG TAB PO SCH ×2 (10:33→16:32)
[2022-11-17] MEDS: Finasteride 5 MG TAB PO SCH (10:33)
[2022-11-17] MEDS: HumaLOG 300 UNITS/3 ML VIAL SC PRN ×2 (11:59→16:50)
[2022-11-17] MEDS: Acetaminophen 325 MG TAB PO PRN (11:59)
[2022-11-17] MEDS: Gabapentin 300 MG CAP PO SCH (21:04)
[2022-11-17] MEDS: Tamsulosin HCl 0.4 MG CAP PO SCH (21:05)
[2022-11-17] MEDS: Atorvastatin Calcium 10 MG TAB PO SCH (21:05)
[2022-11-18 04:49] LABS: #Lymphocytes 0.7 thou/uL (1.20-3.40); #Monocytes 0.5 thou/uL (0.11-0.59); #Neutrophils 2.5 thou/uL (1.40-6.50); %Basophils 0.5 % (0.0-1.0); %Eosinophils 0.1 % (0.0-10.0); %Lymphocytes 19.8 % (21.0-51.0); %Monocytes 13.4 % (0.0-10.0); %Neutrophils 66.1 % (42.0-75.0); Hemoglobin 9.4 g/dL (14.0-18.0); Mean Corpuscular HGB CONC 30.8 g/dL (32.0-36.0); Mean Corpuscular Volume 87.7 fl (78.0-98.0); Mean Platelet Volume 12.9 fL (7.4-10.4); Platelet Count 59 10x3/uL (130-400); RBC Distribution Width 20.1 % (11.5-14.5); Red Blood Cell (RBC) Count 3.49 mill/uL (4.70-6.10); White Blood Cell (WBC) Count 3.7 10x3/uL (4.8-10.8)
[2022-11-18 05:03] LABS: Anion Gap 20 mmol/L (10-20); Calc. Creatinine Clearance 18 mL/min (70-130); Calcium 7.8 mg/dL (7.8-10.44); Carbon Dioxide 30 mmol/L (23-31); Chloride 89 mmol/L (98-107); Estimated GFR 14; Glucose 199 mg/dL (83-110); Potassium 3.3 mmol/L (3.5-5.1); Sodium 136 mmol/L (136-145)
[2022-11-18 05:14] LABS: BUN (Urea Nitrogen) 130 mg/dL (8.4-25.7)
[2022-11-18] MEDS: HumaLOG 300 UNITS/3 ML VIAL SC PRN ×3 (06:38→17:37)
[2022-11-18] MEDS: Finasteride 5 MG TAB PO SCH (09:05)
[2022-11-18] MEDS: Metolazone 5 MG TAB PO SCH (09:05)
[2022-11-18] MEDS: Carvedilol 3.125 MG TAB PO SCH ×2 (09:05→17:37)
[2022-11-18] MEDS: Potassium Chloride 20 MEQ TAB PO SCH ×2 (09:06→17:37)
[2022-11-18] MEDS: Furosemide 80 MG TAB PO SCH ×2 (09:06→14:55)
[2022-11-18] MEDS: Ferrous Gluconate 324 MG TAB PO SCH (09:06)
[2022-11-18] MEDS: Magnesium Oxide 400 MG TAB PO SCH ×2 (10:51→21:08)
[2022-11-18] MEDS: Gabapentin 300 MG CAP PO SCH (21:07)
[2022-11-18] MEDS: Tamsulosin HCl 0.4 MG CAP PO SCH (21:07)
[2022-11-18] MEDS: Atorvastatin Calcium 10 MG TAB PO SCH (21:08)
[2022-11-19 04:21] LABS: #Lymphocytes 0.6 thou/uL (1.20-3.40); #Monocytes 0.4 thou/uL (0.11-0.59); #Neutrophils 3.1 thou/uL (1.40-6.50); %Basophils 0.8 % (0.0-1.0); %Eosinophils 0.2 % (0.0-10.0); %Lymphocytes 14.5 % (21.0-51.0); %Monocytes 9.3 % (0.0-10.0); %Neutrophils 75.2 % (42.0-75.0); Hemoglobin 9.5 g/dL (14.0-18.0); Mean Corpuscular HGB CONC 30.5 g/dL (32.0-36.0); Mean Corpuscular Hemoglobin 26.6 pg (27.0-31.0); Mean Corpuscular Volume 87.3 fl (78.0-98.0); Mean Platelet Volume 11.8 fL (7.4-10.4); Platelet Count 63 10x3/uL (130-400); Red Blood Cell (RBC) Count 3.55 mill/uL (4.70-6.10); White Blood Cell (WBC) Count 4.2 10x3/uL (4.8-10.8)
[2022-11-19 04:39] LABS: Anion Gap 17 mmol/L (10-20); Calc. Creatinine Clearance 18 mL/min (70-130); Calcium 7.9 mg/dL (7.8-10.44); Carbon Dioxide 34 mmol/L (23-31); Chloride 89 mmol/L (98-107); Estimated GFR 14; Glucose 223 mg/dL (83-110); Potassium 3.4 mmol/L (3.5-5.1); Sodium 137 mmol/L (136-145)
[2022-11-19 04:51] LABS: BUN (Urea Nitrogen) 131 mg/dL (8.4-25.7)
[2022-11-19] MEDS: HumaLOG 300 UNITS/3 ML VIAL SC PRN ×3 (05:58→16:33)
[2022-11-19 08:56] LABS: Magnesium 1.9 mg/dL (1.6-2.6)
[2022-11-19] MEDS: Magnesium Oxide 400 MG TAB PO SCH (09:30)
[2022-11-19] MEDS: Finasteride 5 MG TAB PO SCH (09:30)
[2022-11-19] MEDS: Carvedilol 3.125 MG TAB PO SCH ×2 (09:30→16:32)
[2022-11-19] MEDS: Ferrous Gluconate 324 MG TAB PO SCH (09:31)
[2022-11-19] MEDS: Furosemide 80 MG TAB PO SCH ×2 (09:31→14:22)
[2022-11-19] MEDS: Potassium Chloride 20 MEQ TAB PO SCH ×2 (09:31→16:32)
[2022-11-19] MEDS ORDERED: Potassium Chloride 20 MEQ in Premix Bag 1 BAG IVPB SCH (10:30)
[2022-11-19 16:59] VITALS: BP 139/73; TEMP 97.9
[2022-11-19] MEDS ORDERED: Insulin Glargine 30 UNITS/0.3 ML VIAL SC SCH (21:00)
== END 2022-11-19 18:20 | disposition swing bed (61) | DRG 280 ==
LOC: 2NO 20:05
PROVIDERS: ADMIT Family Medicine; ATTEND Family Medicine
DX: I13.0 Hypertensive heart and chronic kidney disease with heart failure and stage 1 through stage 4 chronic kidney disease, or unspecified chronic kidney disease (principal); I50.23 Acute on chronic systolic (congestive) heart failure; I21.A1 Myocardial infarction type 2; J96.01 Acute respiratory failure with hypoxia; N17.9 Acute kidney failure, unspecified; D61.818 Other pancytopenia; E87.1 Hypo-osmolality and hyponatremia; N18.5 Chronic kidney disease, stage 5; E87.6 Hypokalemia; E83.41 Hypermagnesemia; E78.5 Hyperlipidemia, unspecified; I48.0 Paroxysmal atrial fibrillation; N40.0 Benign prostatic hyperplasia without lower urinary tract symptoms; I48.91 Unspecified atrial fibrillation; E16.2 Hypoglycemia, unspecified; R74.01 Elevation of levels of liver transaminase levels; I49.5 Sick sinus syndrome; I08.3 Combined rheumatic disorders of mitral, aortic and tricuspid valves; I27.20 Pulmonary hypertension, unspecified; E83.51 Hypocalcemia; D63.1 Anemia in chronic kidney disease; I42.0 Dilated cardiomyopathy; Z86.73 Personal history of transient ischemic attack (TIA), and cerebral infarction without residual deficits; Z88.1 Allergy status to other antibiotic agents; Z79.899 Other long term (current) drug therapy; Z79.82 Long term (current) use of aspirin; Z79.4 Long term (current) use of insulin; Z90.49 Acquired absence of other specified parts of digestive tract; Z95.810 Presence of automatic (implantable) cardiac defibrillator
CPT/HCPCS: 36415; 36416; 80048; 80053; 82728; 83540; 83550; 83735; 84100; 85025; 85060; 93306; 93798; 97139; J1815; J1940; J3475; J3480; J3490; Q5105

== ENCOUNTER 2023-02-14 02:58 | Inpatient (IN) | payer MEDICARE ==
[2023-02-14] MEDS ORDERED: Cefepime 2 GM VIAL ONE (03:26)
[2023-02-14] MEDS ORDERED: VANCOMYCIN 1.75 GM/500 ML BAG 1.75 GM in Premix Bag 1 BAG IVPB SCH (03:30)
[2023-02-14 03:44] LABS: Hemoglobin 11.7 g/dL (14.0-18.0); Mean Corpuscular HGB CONC 29.4 g/dL (32.0-36.0); Mean Corpuscular Hemoglobin 27.3 pg (27.0-31.0); Mean Corpuscular Volume 92.9 fl (78.0-98.0); Platelet Count 63 10x3/uL (130-400); RBC Distribution Width 20.8 % (11.5-14.5); Red Blood Cell (RBC) Count 4.29 mill/uL (4.70-6.10); White Blood Cell (WBC) Count 5.1 10x3/uL (4.8-10.8)
[2023-02-14 04:02] LABS: ALT (SGPT) 1243 U/L (8-55); AST (SGOT) 1911 U/L (5-34); Albumin 2.9 g/dL (3.4-4.8); Alkaline Phosphatase 462 U/L (40-110); Anion Gap 25 mmol/L (10-20); CK (CPK) 104 U/L (30-200); Calc. Creatinine Clearance 0 mL/min (70-130); Calcium 8.4 mg/dL (7.8-10.44); Carbon Dioxide 16 mmol/L (23-31); Chloride 95 mmol/L (98-107); Estimated GFR 12; Globulin 3.6 g/dL (2.4-3.5); Glucose 100 mg/dL (83-110); Protein, Total 6.5 g/dL (5.8-8.1); Sodium 130 mmol/L (136-145)
[2023-02-14 04:05] LABS: Potassium 6.3 mmol/L (3.5-5.1)
[2023-02-14 04:13] LABS: BUN (Urea Nitrogen) 138 mg/dL (8.4-25.7)
[2023-02-14 04:17] LABS: Anisocytosis SLIGHT = 6-15 cells (100X) (0-5/hpf); Hypochromia SLIGHT = 6-15 cells (100X) (0-5/hpf); Lymphocytes 17 % (21-51); MDiff Complete? YES; Monocytes 5 % (0-10); Neutrophil 78 % (42-75); Platelet Morphology Comment Appears Decreased; Polychromasia SLIGHT = 2-3 cells (100X) (0-2/hpf); Vacuoles SLIGHT
[2023-02-14 04:22] LABS: CKMB 6.4 ng/mL (0-6.6)
[2023-02-14] MEDS ORDERED: Dextrose 50% Abboject 50 ML SYRINGE ONE ×3 (04:39→09:30)
[2023-02-14] MEDS ORDERED: Calcium Gluc 4.6 MEQ/10 ML (100 MG/ML) ONE (04:39)
[2023-02-14] MEDS ORDERED: Insulin Regular 300 UNITS/3 ML VIAL ONE ×2 (04:39→09:30)
[2023-02-14] MEDS ORDERED: CALCIUM GLUC 1 GM/NS 50 ML BAG ONE ×2 (04:44→09:30)
[2023-02-14] MEDS ORDERED: Ketorolac Tromethamine 30 MG/ML VIAL ONE (05:19)
[2023-02-14] MEDS ORDERED: cefTRIAXone (ROCEPHIN) 2 GM VIAL ONE (05:19)
[2023-02-14] MEDS ORDERED: Acetaminophen 500 MG TAB ONE (05:19)
[2023-02-14] MEDS ORDERED: Albuterol 2.5 MG/0.5 ML NEB ONE (05:24)
[2023-02-14] MEDS ORDERED: Furosemide 40 MG/4 ML VIAL ONE (05:39)
[2023-02-14 05:53] LABS: Bacteria/HPF 4+ HPF (None Seen); Bilirubin Negative (Negative); Blood, Urine Trace (Negative); Clarity Turbid (Clear); Glucose, Urine (Dipstick) Normal (Negative); Ketone, Urine Negative (Negative); Leukocyte 500 Leu/uL (Negative); Nitrite Negative (Negative); Protein, Urine (Dipstick) 30 mg/dL (Neg-Trace); RBC/HPF 0-3 HPF (0-3); Specific Gravity, Urine 1.015 (1.002-1.036); Squamous Epithelial 0-3 HPF (0-3); WBC/HPF Greater than 50 HPF (0-3)
[2023-02-14] MEDS ORDERED: Sodium Bicarb 50 MEQ/50 ML VIAL ONE ×2 (07:53→12:05)
[2023-02-14 07:54] LABS: Actual Bicarbonate (HCO3v) 19.6 mEq/L (22-28); Base Excess -6.3 mEq/L (-2.0 to +3.0); Calcium, Ionized (venous) 0.94 mmol/L (1.16-1.32); Chloride (VBG) 97 mmol/L (98-106); Hematocrit-VBG 38 % (42.0-52.0); Hemoglobin (Hb) 12.9 g/dL (12.6-17.4); Sodium 128.6 mmol/L (133-146); pH (venous) 7.305 (7.32-7.43)
[2023-02-14 07:56] LABS: Potassium (VBG) 7.06 mmol/L (3.70-5.30)
[2023-02-14 08:37] LABS: CKMB 6.3 ng/mL (0-6.6)
[2023-02-14 08:37] LABS: INR-International Normal Ratio 1.8; Prothrombin Time 21.9 sec (12.0-14.7)
[2023-02-14 08:38] LABS: PTT 35.3 sec (22.9-36.1)
[2023-02-14] MEDS ORDERED: NOREPINEPHRINE 8 MG/250 ML-D5W 250 ML ONE (08:50)
[2023-02-14] MEDS ORDERED: Calcium Carbonate 500 MG ChewTAB PO PRN (08:57)
[2023-02-14] MEDS ORDERED: Acetaminophen 650 MG Suppository PR PRN (08:57)
[2023-02-14] MEDS ORDERED: Senokot S 8.6-50 MG TAB PO PRN (08:57)
[2023-02-14] MEDS ORDERED: Acetaminophen 325 MG TAB PO PRN (08:57)
[2023-02-14] MEDS ORDERED: Heparin 5,000 UNITS/ML VIAL SC SCH (09:00)
[2023-02-14] MEDS ORDERED: Famotidine/PF 20 mg/2ml Vial SLOW IVP SCH (09:00)
[2023-02-14] MEDS ORDERED: NOREPINEPHRINE 8 MG/250 ML-D5W 250 ML IVPB PRN (09:15)
[2023-02-14] MEDS ORDERED: Sodium Bicarbonate 150 MEQ in Dextrose 5% in Water 1,000 ML IV SCH (09:15)
[2023-02-14] MEDS ORDERED: Ipratropium/Albuterol 3 ML NEB NEB PRN (09:15)
[2023-02-14] MEDS ORDERED: Vancomycin 1 GM in Premix Bag 1 BAG IVPB SCH (09:15)
[2023-02-14] MEDS ORDERED: Dextrose 50% Abboject 50 ML SYRINGE SLOW IVP PRN (09:17)
[2023-02-14] MEDS ORDERED: Dextrose 5% in Water 1,000 ML IV PRN (09:17)
[2023-02-14] MEDS ORDERED: Sodium Bicarb 50 MEQ/50 ML Abboject 8.4% SYRINGE IVP SCH (09:30)
[2023-02-14 09:51] LABS: Anion Gap 23 mmol/L (10-20); Calc. Creatinine Clearance 0 mL/min (70-130); Calcium 8.4 mg/dL (7.8-10.44); Carbon Dioxide 18 mmol/L (23-31); Chloride 98 mmol/L (98-107); Estimated GFR 13; Glucose 128 mg/dL (83-110); Potassium 5.6 mmol/L (3.5-5.1); Sodium 133 mmol/L (136-145)
[2023-02-14] MEDS ORDERED: Indomethacin 50 MG SUPP ONE (09:57)
[2023-02-14] MEDS ORDERED: KETAMINE 100 MG/ML (5ML VIAL) ONE (09:58)
[2023-02-14] MEDS ORDERED: Iopamidol 45 ML ONE (09:58)
[2023-02-14 10:05] LABS: BUN (Urea Nitrogen) 133 mg/dL (8.4-25.7)
[2023-02-14] MEDS ORDERED: fentaNYL 50 mcg/mL 1 mL Vial ONE (10:13)
[2023-02-14] MEDS ORDERED: SUGAMMADEX SODIUM 200 MG/2 ML VIAL ONE (10:15)
[2023-02-14] MEDS ORDERED: metroNIDAZOLE 500 MG/100 ML BAG ONE (10:18)
[2023-02-14] MEDS ORDERED: Midazolam HCl 2 mg/2 ml Vial ONE (10:53)
[2023-02-14] MEDS ORDERED: Calcium Chloride 1 GM/10 ML Abboject SYRINGE ONE (10:56)
[2023-02-14] MEDS ORDERED: EPINEPHrine 1 MG/10 ML Abboject SYRINGE ONE ×2 (10:56→11:28)
[2023-02-14] MEDS ORDERED: Rocuronium Bromide 10 MG/ML (10ML VIAL) ONE (10:56)
[2023-02-14] MEDS ORDERED: Vasopressin 20 UNITS/ML VIAL ONE (11:18)
[2023-02-14] MEDS ORDERED: Pantoprazole 40 MG VIAL IVP SCH (12:00)
[2023-02-14 12:01] LABS: Base Excess (BEa) -17.4 mEq/L (-2.0 to +3.0); Calcium, Ionized (arterial) 1.36 mmol/L (1.12-1.30); Carboxyhemoglobin (COHb) 0.6 gm% (0.0-3.0); Hematocrit-ABG 36 % (42.0-52.0); Hemoglobin (Hb) 12.4 g/dL (14.0-18.0); Potassium - ABG Lab 5.68 mmol/L (3.70-5.30)
[2023-02-14 12:05] LABS: CO2 Tension 24.2 mmHg (35.0-45.0)
[2023-02-14 12:06] LABS: Puncture Site Arterial Line
[2023-02-14] MEDS ORDERED: Vancomycin Dose by Levels Sliding Scale (Wt 71-99) FS SCH (12:30)
[2023-02-14] MEDS ORDERED: Hydrocortisone Sod Succ/PF 100 mg/2 ml Vial IVP SCH (12:30)
[2023-02-14] MEDS ORDERED: EPINEPHrine 1 MG/ML AMP ONE (12:36)
[2023-02-14] MEDS ORDERED: Calcium Gluc 4.6 MEQ/10 ML (100 MG/ML) SLOW IVP SCH (12:45)
[2023-02-14] MEDS ORDERED: Sodium Bicarb 50 MEQ/50 ML VIAL IVP SCH (12:45)
[2023-02-14] MEDS ORDERED: EPINEPHrine 4 MG in Dextrose 5% in Water 250 ML IVP SCH (12:45)
[2023-02-14] MEDS ORDERED: Sodium Chloride 0.9% 1,000 ML IV SCH (12:45)
[2023-02-14 13:29] LABS: Anion Gap 27 mmol/L (10-20); Calc. Creatinine Clearance 0 mL/min (70-130); Calcium 8.3 mg/dL (7.8-10.44); Chloride 107 mmol/L (98-107); Estimated GFR 15; Glucose 166 mg/dL (83-110); Potassium 5.2 mmol/L (3.5-5.1); Sodium 138 mmol/L (136-145)
[2023-02-14 13:44] LABS: BUN (Urea Nitrogen) 127 mg/dL (8.4-25.7)
[2023-02-14 13:56] LABS: Carbon Dioxide 9 mmol/L (23-31)
[2023-02-14] MEDS: Sodium Bicarbonate 150 MEQ in Dextrose 5% in Water 1,000 ML IV SCH ×3 (14:04→23:18)
[2023-02-14] MEDS: Albumin 25% 25 GM/100 ML BOT IVPB SCH ×3 (14:26→23:19)
[2023-02-14 15:57] LABS: CKMB 5.8 ng/mL (0-6.6)
[2023-02-14 17:28] LABS: Anion Gap 30 mmol/L (10-20); Calc. Creatinine Clearance 15 mL/min (70-130); Calcium 8.6 mg/dL (7.8-10.44); Carbon Dioxide 15 mmol/L (23-31); Chloride 95 mmol/L (98-107); Estimated GFR 13; Glucose 245 mg/dL (83-110); Potassium 5.1 mmol/L (3.5-5.1); Sodium 135 mmol/L (136-145)
[2023-02-14 17:39] LABS: BUN (Urea Nitrogen) 125 mg/dL (8.4-25.7)
[2023-02-14 17:59] LABS: Lactic Acid 11.5 mmol/L (0.5-2.2)
[2023-02-14] MEDS ORDERED: Ventilator Sedation Protocol 1 EACH FS SCH (18:00)
[2023-02-14] MEDS ORDERED: DISCONTINUE PREVIOUS NARCOTIC PAIN MEDICATIONS AND BENZODIAZEPINES FS SCH (18:00)
[2023-02-14] MEDS ORDERED: Fentanyl CADD 100 ML IV SCH (18:00)
[2023-02-14] MEDS ORDERED: Morphine 2 MG/ML VIAL SLOW IVP PRN (18:00)
[2023-02-14] MEDS ORDERED: Propofol BOLUS 1,000 MG/100 ML VIAL IV PRN (18:00)
[2023-02-14] MEDS ORDERED: Fentanyl BOLUS 250 ML IVPB PRN (18:00)
[2023-02-14] MEDS: metroNIDAZOLE 500 MG in Premix Bag 1 BAG IVPB SCH (18:10)
[2023-02-14] MEDS: Hydrocortisone Sod Succ/PF 100 mg/2 ml Vial IVP SCH ×2 (18:11→23:19)
[2023-02-14] MEDS: Propofol 1,000 MG/100 ML VIAL IV PRN (20:03)
[2023-02-14] MEDS: Lorazepam 2 MG/ML VIAL SLOW IVP PRN (20:19)
[2023-02-14] MEDS: Pantoprazole 40 MG VIAL IVP SCH (20:23)
[2023-02-14 21:59] LABS: Anion Gap 32 mmol/L (10-20); Calc. Creatinine Clearance 16 mL/min (70-130); Calcium 8.5 mg/dL (7.8-10.44); Carbon Dioxide 12 mmol/L (23-31); Chloride 95 mmol/L (98-107); Estimated GFR 14; Glucose 344 mg/dL (83-110); Potassium 4.6 mmol/L (3.5-5.1); Sodium 134 mmol/L (136-145)
[2023-02-14 22:11] LABS: BUN (Urea Nitrogen) 129 mg/dL (8.4-25.7)
[2023-02-14] MEDS ORDERED: HumaLOG 300 UNITS/3 ML VIAL SC SCH (22:30)
[2023-02-14] MEDS: HumaLOG 300 UNITS/3 ML VIAL SC PRN (23:19)
[2023-02-15] MEDS: metroNIDAZOLE 500 MG in Premix Bag 1 BAG IVPB SCH ×3 (01:20→17:48)
[2023-02-15] MEDS ORDERED: Sodium Bicarb 50 MEQ/50 ML VIAL IVP SCH (02:30)
[2023-02-15] MEDS: Cefepime 1 GM in Sodium Chloride 0.9% 100 ML IVPB SCH (03:16)
[2023-02-15] MEDS: HumaLOG 300 UNITS/3 ML VIAL SC PRN ×2 (04:04→08:34)
[2023-02-15 04:33] LABS: Anion Gap 31 mmol/L (10-20); Calc. Creatinine Clearance 17 mL/min (70-130); Calcium 8.2 mg/dL (7.8-10.44); Carbon Dioxide 19 mmol/L (23-31); Chloride 91 mmol/L (98-107); Estimated GFR 14; Glucose 386 mg/dL (83-110); INR-International Normal Ratio 4.1; Magnesium 1.5 mg/dL (1.6-2.6); Potassium 3.6 mmol/L (3.5-5.1); Sodium 137 mmol/L (136-145)
[2023-02-15 04:44] LABS: Lactic Acid 11.4 mmol/L (0.5-2.2)
[2023-02-15 04:45] LABS: BUN (Urea Nitrogen) 121 mg/dL (8.4-25.7)
[2023-02-15] MEDS: Hydrocortisone Sod Succ/PF 100 mg/2 ml Vial IVP SCH ×4 (05:03→23:21)
[2023-02-15 05:05] LABS: #Lymphocytes 0.6 thou/uL (1.20-3.40); #Monocytes 0.5 thou/uL (0.11-0.59); #Neutrophils 3.7 thou/uL (1.40-6.50); %Eosinophils 0.1 % (0.0-10.0); %Monocytes 10.8 % (0.0-10.0); %Neutrophils 76.1 % (42.0-75.0); Anisocytosis SLIGHT = 6-15 cells (100X) (0-5/hpf); Hemoglobin 9.2 g/dL (14.0-18.0); MDiff Complete? YES; Mean Corpuscular HGB CONC 32.8 g/dL (32.0-36.0); Mean Corpuscular Hemoglobin 29.1 pg (27.0-31.0); Mean Corpuscular Volume 88.9 fl (78.0-98.0); Mean Platelet Volume 14.7 fL (7.4-10.4); Platelet Count 31 10x3/uL (130-400); Platelet Morphology Comment Appears Decreased; RBC Distribution Width 20.3 % (11.5-14.5); Red Blood Cell (RBC) Count 3.14 mill/uL (4.70-6.10); White Blood Cell (WBC) Count 4.9 10x3/uL (4.8-10.8)
[2023-02-15] MEDS: Albumin 25% 25 GM/100 ML BOT IVPB SCH ×2 (05:05→13:13)
[2023-02-15] MEDS: Sodium Bicarbonate 150 MEQ in Dextrose 5% in Water 1,000 ML IV SCH (05:20)
[2023-02-15 05:21] LABS: Albumin 2.9 g/dL (3.4-4.8)
[2023-02-15 05:26] LABS: Bilirubin, Total 2.8 mg/dL (0.2-1.2)
[2023-02-15 05:27] LABS: Alkaline Phosphatase 260 U/L (40-110)
[2023-02-15 05:28] LABS: Protein, Total 4.5 g/dL (5.8-8.1)
[2023-02-15 05:29] LABS: AST (SGOT) 2529 U/L (5-34)
[2023-02-15 05:30] LABS: ALT (SGPT) 1634 U/L (8-55)
[2023-02-15] MEDS ORDERED: Vancomycin HCl 500 MG in Sodium Chloride 0.9% 100 ML IV SCH (08:00)
[2023-02-15 08:04] LABS: Actual Bicarbonate (HCO3a) 24.2 mEq/L (22-28); Base Excess (BEa) 6.7 mEq/L (-2.0 to +3.0); Calcium, Ionized (arterial) 0.88 mmol/L (1.12-1.30); Carboxyhemoglobin (COHb) 0.7 gm% (0.0-3.0); Hematocrit-ABG 27 % (42.0-52.0); Hemoglobin (Hb) 9.3 g/dL (14.0-18.0); O2 Tension (PaO2), arterial 245.4 mmHg (> 60.0); Potassium - ABG Lab 2.93 mmol/L (3.70-5.30)
[2023-02-15 08:07] LABS: ALV-art Gradient 90.975 mmHg (0-20); CO2 Tension 16.1 mmHg (35.0-45.0); Puncture Site Arterial Line; pH, Arterial 7.795 (7.35-7.45)
[2023-02-15] MEDS: Pantoprazole 40 MG VIAL IVP SCH ×2 (08:29→20:37)
[2023-02-15] MEDS ORDERED: Magnesium Sulfate In Water 4 GM in Premix Bag 1 BAG IVPB SCH (09:15)
[2023-02-15] MEDS ORDERED: Magnesium Sulfate 4 GM in Sodium Chloride 0.9% 250 ML 250 ML IVPB SCH (09:15)
[2023-02-15] MEDS ORDERED: Dextrose 5 % And 0.9 % NaCl 1,000 ML IV SCH (09:15)
[2023-02-15] MEDS: Sodium Chloride 0.45% 1,000 ML IV SCH ×2 (10:37→19:00)
[2023-02-15 17:17] LABS: Magnesium 2.7 mg/dL (1.6-2.6)
[2023-02-16] MEDS: metroNIDAZOLE 500 MG in Premix Bag 1 BAG IVPB SCH ×3 (01:40→18:20)
[2023-02-16] MEDS: Sodium Chloride 0.45% 1,000 ML IV SCH ×3 (01:58→18:22)
[2023-02-16] MEDS: Cefepime 1 GM in Sodium Chloride 0.9% 100 ML IVPB SCH (03:12)
[2023-02-16 04:53] LABS: ALT (SGPT) 1269 U/L (8-55); AST (SGOT) 1116 U/L (5-34); Albumin 3.1 g/dL (3.4-4.8); Alkaline Phosphatase 212 U/L (40-110); Anion Gap 20 mmol/L (10-20); BUN (Urea Nitrogen) 123 mg/dL (8.4-25.7); Bilirubin, Total 2.5 mg/dL (0.2-1.2); Calc. Creatinine Clearance 18 mL/min (70-130); Carbon Dioxide 27 mmol/L (23-31); Chloride 90 mmol/L (98-107); Estimated GFR 16; Glucose 133 mg/dL (83-110); Protein, Total 4.6 g/dL (5.8-8.1); Sodium 134 mmol/L (136-145)
[2023-02-16 05:00] LABS: Mean Corpuscular HGB CONC 30.8 g/dL (32.0-36.0); Mean Corpuscular Hemoglobin 28.4 pg (27.0-31.0); Mean Corpuscular Volume 92.2 fl (78.0-98.0); Mean Platelet Volume 15.5 fL (7.4-10.4); Platelet Count 26 10x3/uL (130-400); RBC Distribution Width 20.7 % (11.5-14.5); Red Blood Cell (RBC) Count 3.16 mill/uL (4.70-6.10)
[2023-02-16 05:04] LABS: Phosphorus 3.8 mg/dL (2.3-4.7)
[2023-02-16] MEDS: Hydrocortisone Sod Succ/PF 100 mg/2 ml Vial IVP SCH ×4 (05:07→23:34)
[2023-02-16] MEDS: Propofol 1,000 MG/100 ML VIAL IV PRN (05:08)
[2023-02-16 07:17] LABS: Anisocytosis SLIGHT = 6-15 cells (100X) (0-5/hpf); Band 8 % (5-11); Eosinophils 1 % (0-10); Hypochromia SLIGHT = 6-15 cells (100X) (0-5/hpf); Lymphocytes 7 % (21-51); MDiff Complete? YES; Monocytes 3 % (0-10); Neutrophil 81 % (42-75); Nucleated RBC (Manual Ct) 2 % (0); Ovalocytes SLIGHT = 2-5 cells (100X) (0-1/hpf); Platelet Morphology Comment Appears Decreased; Polychromasia SLIGHT = 2-3 cells (100X) (0-2/hpf); White Blood Cell (WBC) Count 6.9 10x3/uL (4.8-10.8)
[2023-02-16 07:36] LABS: Vancomycin, Random 17.8 ug/mL (See Comment)
[2023-02-16 07:49] LABS: Actual Bicarbonate (HCO3a) 29.1 mEq/L (22-28); Base Excess (BEa) 6.7 mEq/L (-2.0 to +3.0); CO2 Tension 33.4 mmHg (35.0-45.0); Calcium, Ionized (arterial) 0.91 mmol/L (1.12-1.30); Carboxyhemoglobin (COHb) 0.5 gm% (0.0-3.0); Hematocrit-ABG 30 % (42.0-52.0); Hemoglobin (Hb) 10.1 g/dL (14.0-18.0); O2 Tension (PaO2), arterial 129.3 mmHg (> 60.0); Potassium - ABG Lab 3.03 mmol/L (3.70-5.30); pH, Arterial 7.558 (7.35-7.45)
[2023-02-16 07:59] LABS: Puncture Site Arterial Line
[2023-02-16] MEDS: Potassium Chloride 20 MEQ in Premix Bag 1 BAG IVPB SCH ×2 (09:06→10:28)
[2023-02-16] MEDS: Pantoprazole 40 MG VIAL IVP SCH ×2 (09:07→20:11)
[2023-02-16] MEDS ORDERED: Dexmedetomidine In 0.9 % NaCl 100 ML IVPB SCH (09:30)
[2023-02-16] MEDS: Dexmedetomidine 400 MCG, Admixture Fee 1 EACH in Sodium Chloride 0.9% 96 ML IVPB SCH ×2 (10:09→10:25)
[2023-02-16] MEDS ORDERED: Vancomycin HCl 500 MG in Sodium Chloride 0.9% 100 ML IV SCH (11:30)
[2023-02-16 14:14] LABS: Calcium 7.8 mg/dL (7.8-10.44); Chloride 90 mmol/L (98-107); Glucose 111 mg/dL (83-110); Potassium 4.4 mmol/L (3.5-5.1); Sodium 134 mmol/L (136-145)
[2023-02-16 15:05] LABS: Anion Gap 23 mmol/L (10-20); BUN (Urea Nitrogen) 123 mg/dL (8.4-25.7); Calc. Creatinine Clearance 18 mL/min (70-130); Carbon Dioxide 23 mmol/L (23-31); Estimated GFR 16
[2023-02-17] MEDS: metroNIDAZOLE 500 MG in Premix Bag 1 BAG IVPB SCH ×3 (01:00→17:18)
[2023-02-17] MEDS: Cefepime 1 GM in Sodium Chloride 0.9% 100 ML IVPB SCH (03:25)
[2023-02-17] MEDS: Sodium Chloride 0.45% 1,000 ML IV SCH (03:36)
[2023-02-17 04:30] LABS: ALT (SGPT) 1162 U/L (8-55); AST (SGOT) 719 U/L (5-34); Albumin 2.8 g/dL (3.4-4.8); Alkaline Phosphatase 223 U/L (40-110); Anion Gap 22 mmol/L (10-20); Bilirubin, Direct 2.3 mg/dL (0.1-0.3); Bilirubin, Total 2.8 mg/dL (0.2-1.2); Calc. Creatinine Clearance 17 mL/min (70-130); Calcium 7.6 mg/dL (7.8-10.44); Carbon Dioxide 25 mmol/L (23-31); Chloride 89 mmol/L (98-107); Estimated GFR 15; Glucose 138 mg/dL (83-110); Potassium 4.2 mmol/L (3.5-5.1); Protein, Total 4.5 g/dL (5.8-8.1); Sodium 132 mmol/L (136-145)
[2023-02-17 04:41] LABS: BUN (Urea Nitrogen) 113 mg/dL (8.4-25.7)
[2023-02-17] MEDS: Hydrocortisone Sod Succ/PF 100 mg/2 ml Vial IVP SCH ×2 (05:33→13:29)
[2023-02-17 05:40] LABS: Anisocytosis SLIGHT = 6-15 cells (100X) (0-5/hpf); Band 2 % (5-11); Hypochromia SLIGHT = 6-15 cells (100X) (0-5/hpf); Large Platelets SLIGHT (None Seen); Lymphocytes 3 % (21-51); MDiff Complete? YES; Mean Corpuscular Hemoglobin 29.1 pg (27.0-31.0); Monocytes 4 % (0-10); Myelocyte 1 % (0-0); Neutrophil 90 % (42-75); Nucleated RBC (Manual Ct) 2 % (0); Platelet Count 20 10x3/uL (130-400); Platelet Morphology Comment Appears Decreased; Polychromasia SLIGHT = 2-3 cells (100X) (0-2/hpf); RBC Distribution Width 20.3 % (11.5-14.5); Red Blood Cell (RBC) Count 3.42 mill/uL (4.70-6.10)
[2023-02-17 06:47] LABS: Actual Bicarbonate (HCO3a) 22.5 mEq/L (22-28); Base Excess (BEa) 0.6 mEq/L (-2.0 to +3.0); CO2 Tension 27.7 mmHg (35.0-45.0); Calcium, Ionized (arterial) 0.92 mmol/L (1.12-1.30); Carboxyhemoglobin (COHb) 0.6 gm% (0.0-3.0); Hematocrit-ABG 32 % (42.0-52.0); Hemoglobin (Hb) 10.8 g/dL (14.0-18.0); Potassium - ABG Lab 3.99 mmol/L (3.70-5.30); pH, Arterial 7.528 (7.35-7.45)
[2023-02-17 06:49] LABS: ALV-art Gradient 111.575 mmHg (0-20); Puncture Site Arterial Line
[2023-02-17] MEDS: Dexmedetomidine 400 MCG, Admixture Fee 1 EACH in Sodium Chloride 0.9% 96 ML IVPB SCH (08:10)
[2023-02-17] MEDS ORDERED: Norepinephrine 8 MG in Dextrose 5% in Water 242 ML IVPB PRN (08:30)
[2023-02-17] MEDS: Pantoprazole 40 MG VIAL IVP SCH ×2 (09:35→21:03)
[2023-02-17 12:08] LABS: Vancomycin, Random 17.3 ug/mL (See Comment)
[2023-02-17] MEDS: Albumin 25% 25 GM/100 ML BOT IVPB SCH ×3 (12:12→23:19)
[2023-02-17] MEDS: Sodium Chloride 0.9% 1,000 ML IV SCH ×2 (12:29→21:03)
[2023-02-17] MEDS ORDERED: Vancomycin HCl 500 MG in Sodium Chloride 0.9% 100 ML IV SCH (14:30)
[2023-02-17] MEDS: HumaLOG 300 UNITS/3 ML VIAL SC PRN (17:15)
[2023-02-18] MEDS: Cefepime 1 GM in Sodium Chloride 0.9% 100 ML IVPB SCH (03:29)
[2023-02-18] MEDS: HumaLOG 300 UNITS/3 ML VIAL SC PRN (04:42)
[2023-02-18] MEDS: Albumin 25% 25 GM/100 ML BOT IVPB SCH (05:26)
[2023-02-18 05:32] LABS: #Monocytes 0.2 thou/uL (0.11-0.59); #Neutrophils 4.7 thou/uL (1.40-6.50); %Lymphocytes 11.6 % (21.0-51.0); %Monocytes 4.1 % (0.0-10.0); %Neutrophils 83.4 % (42.0-75.0); Hemoglobin 9.3 g/dL (14.0-18.0); Mean Corpuscular HGB CONC 31.3 g/dL (32.0-36.0); Mean Corpuscular Hemoglobin 28.1 pg (27.0-31.0); Mean Corpuscular Volume 89.7 fl (78.0-98.0); RBC Distribution Width 21.6 % (11.5-14.5); Red Blood Cell (RBC) Count 3.31 mill/uL (4.70-6.10); White Blood Cell (WBC) Count 5.6 10x3/uL (4.8-10.8)
[2023-02-18] MEDS: Sodium Chloride 0.9% 1,000 ML IV SCH ×2 (05:40→09:43)
[2023-02-18 05:54] LABS: ALT (SGPT) 635 U/L (8-55); AST (SGOT) 234 U/L (5-34); Albumin 3.3 g/dL (3.4-4.8); Alkaline Phosphatase 162 U/L (40-110); Anion Gap 22 mmol/L (10-20); Calc. Creatinine Clearance 18 mL/min (70-130); Calcium 7.4 mg/dL (7.8-10.44); Carbon Dioxide 20 mmol/L (23-31); Chloride 94 mmol/L (98-107); Estimated GFR 14; Globulin 1.2 g/dL (2.4-3.5); Glucose 160 mg/dL (83-110); Protein, Total 4.5 g/dL (5.8-8.1); Sodium 132 mmol/L (136-145)
[2023-02-18 06:06] LABS: BUN (Urea Nitrogen) 116 mg/dL (8.4-25.7)
[2023-02-18 06:40] LABS: Anisocytosis MODERATE=16-30 cells HPF (0-5); Burr Cells SLIGHT = 2-5 cells HPF (0-1); CellaVision Operator ID LAB.GE; Platelet Morphology Comment Significant decrease; Polychromasia MARKED = >4 cells HPF (0-2)
[2023-02-18 06:55] LABS: Platelet Count 19 10x3/uL (130-400)
[2023-02-18 08:05] LABS: Base Excess (BEa) -3.3 mEq/L (-2.0 to +3.0); CO2 Tension 29.7 mmHg (35.0-45.0); Carboxyhemoglobin (COHb) 0.8 gm% (0.0-3.0); Hematocrit-ABG 30 % (42.0-52.0); Hemoglobin (Hb) 10.1 g/dL (14.0-18.0); O2 Tension (PaO2), arterial 83.8 mmHg (> 60.0); Potassium - ABG Lab 3.65 mmol/L (3.70-5.30); pH, Arterial 7.446 (7.35-7.45)
[2023-02-18 08:07] LABS: ALV-art Gradient 92.975 mmHg (0-20); Puncture Site Arterial Line
[2023-02-18] MEDS: Pantoprazole 40 MG VIAL IVP SCH ×2 (09:39→21:27)
[2023-02-18] MEDS: Sodium Chloride 0.45% 1,000 ML IV SCH (12:05)
[2023-02-19] MEDS: Cefepime 1 GM in Sodium Chloride 0.9% 100 ML IVPB SCH (04:03)
[2023-02-19] MEDS: Sodium Chloride 0.9% 1,000 ML IV SCH (04:04)
[2023-02-19 04:38] LABS: #Monocytes 0.4 thou/uL (0.11-0.59); #Neutrophils 7.4 thou/uL (1.40-6.50); %Basophils 0.1 % (0.0-1.0); %Lymphocytes 8.4 % (21.0-51.0); %Monocytes 4.7 % (0.0-10.0); %Neutrophils 85.9 % (42.0-75.0); Hemoglobin 10.3 g/dL (14.0-18.0); Mean Corpuscular HGB CONC 30.8 g/dL (32.0-36.0); Mean Corpuscular Hemoglobin 27.5 pg (27.0-31.0); Mean Corpuscular Volume 89.1 fl (78.0-98.0); RBC Distribution Width 22.3 % (11.5-14.5); Red Blood Cell (RBC) Count 3.75 mill/uL (4.70-6.10); White Blood Cell (WBC) Count 8.6 10x3/uL (4.8-10.8)
[2023-02-19 04:46] LABS: Platelet Count 23 10x3/uL (130-400)
[2023-02-19 04:50] LABS: INR-International Normal Ratio 4.4; Prothrombin Time 43.7 sec (12.0-14.7)
[2023-02-19 05:13] LABS: ALT (SGPT) 520 U/L (8-55); AST (SGOT) 151 U/L (5-34); Albumin 3.3 g/dL (3.4-4.8); Alkaline Phosphatase 183 U/L (40-110); Anion Gap 25 mmol/L (10-20); Bilirubin, Total 3.8 mg/dL (0.2-1.2); Calc. Creatinine Clearance 17 mL/min (70-130); Calcium 7.7 mg/dL (7.8-10.44); Carbon Dioxide 19 mmol/L (23-31); Chloride 93 mmol/L (98-107); Estimated GFR 13; Globulin 1.3 g/dL (2.4-3.5); Glucose 126 mg/dL (83-110); Potassium 4.1 mmol/L (3.5-5.1); Protein, Total 4.6 g/dL (5.8-8.1); Sodium 133 mmol/L (136-145)
[2023-02-19 05:24] LABS: BUN (Urea Nitrogen) 121 mg/dL (8.4-25.7)
[2023-02-19] MEDS: Pantoprazole 40 MG VIAL IVP SCH ×2 (08:30→20:56)
[2023-02-19 08:34] LABS: Actual Bicarbonate (HCO3a) 18.3 mEq/L (22-28); Base Excess (BEa) -4.7 mEq/L (-2.0 to +3.0); CO2 Tension 27.6 mmHg (35.0-45.0); Calcium, Ionized (arterial) 0.92 mmol/L (1.12-1.30); Carboxyhemoglobin (COHb) 1.1 gm% (0.0-3.0); Hematocrit-ABG 34 % (42.0-52.0); Hemoglobin (Hb) 11.6 g/dL (14.0-18.0); O2 Tension (PaO2), arterial 85.2 mmHg (> 60.0); Potassium - ABG Lab 4.05 mmol/L (3.70-5.30); pH, Arterial 7.439 (7.35-7.45)
[2023-02-19 08:36] LABS: Puncture Site RBA
[2023-02-19] MEDS: HEPARIN CATH SCH ×2 (14:07→14:08)
[2023-02-19] MEDS: PREFILLED CATH SCH ×2 (14:07→14:08)
[2023-02-20] MEDS: Sodium Chloride 0.9% 1,000 ML IV SCH (02:14)
[2023-02-20 03:26] LABS: #Monocytes 0.3 thou/uL (0.11-0.59); #Neutrophils 7.3 thou/uL (1.40-6.50); %Basophils 0.1 % (0.0-1.0); %Lymphocytes 7.5 % (21.0-51.0); %Neutrophils 87.8 % (42.0-75.0); Mean Corpuscular Hemoglobin 27.7 pg (27.0-31.0); Mean Corpuscular Volume 89.4 fl (78.0-98.0); RBC Distribution Width 22.5 % (11.5-14.5); Red Blood Cell (RBC) Count 3.97 mill/uL (4.70-6.10); White Blood Cell (WBC) Count 8.3 10x3/uL (4.8-10.8)
[2023-02-20 03:28] LABS: Platelet Count 26 10x3/uL (130-400)
[2023-02-20 03:29] LABS: Manual Diff?? YES
[2023-02-20 03:52] LABS: Anisocytosis MODERATE=16-30 cells HPF (0-5); Burr Cells MARKED = >16 cells HPF (0-1); CellaVision Operator ID lab.sh2; Hypochromia SLIGHT = 6-15 cells HPF (0-5); Lymphocytes 2 % (21-51); Macrocytosis MODERATE=16-30 cells HPF (0-5); Monocytes 3 % (0-10); Neutrophil 95 % (42-75); Platelet Morphology Comment Significant decrease; Poikilocytosis MODERATE=16-30 cells HPF (0-5); Polychromasia MODERATE = 3-4 cells HPF (0-2); Smudge Cells 22.8 %; Total Cell Count 101
[2023-02-20] MEDS: Cefepime 1 GM in Sodium Chloride 0.9% 100 ML IVPB SCH (05:45)
[2023-02-20 06:58] LABS: Chloride 95 mmol/L (98-107); Potassium 3.9 mmol/L (3.5-5.1); Sodium 134 mmol/L (136-145)
[2023-02-20 06:59] LABS: Calcium 7.7 mg/dL (7.8-10.44); Glucose 125 mg/dL (83-110)
[2023-02-20 07:00] LABS: Globulin 1.5 g/dL (2.4-3.5); Protein, Total 4.5 g/dL (5.8-8.1)
[2023-02-20 07:01] LABS: Anion Gap 25 mmol/L (10-20); Bilirubin, Total 3.9 mg/dL (0.2-1.2); Carbon Dioxide 18 mmol/L (23-31)
[2023-02-20 07:02] LABS: Alkaline Phosphatase 176 U/L (40-110)
[2023-02-20 07:03] LABS: Calc. Creatinine Clearance 16 mL/min (70-130); Estimated GFR 12
[2023-02-20 07:14] LABS: ALT (SGPT) 390 U/L (8-55); AST (SGOT) 83 U/L (5-34)
[2023-02-20 07:22] LABS: Actual Bicarbonate (HCO3a) 17.4 mEq/L (22-28); Base Excess (BEa) -5.5 mEq/L (-2.0 to +3.0); Calcium, Ionized (arterial) 0.94 mmol/L (1.12-1.30); Carboxyhemoglobin (COHb) 0.8 gm% (0.0-3.0); Hematocrit-ABG 36 % (42.0-52.0); Hemoglobin (Hb) 12.1 g/dL (14.0-18.0); O2 Tension (PaO2), arterial 94.8 mmHg (> 60.0); Potassium - ABG Lab 3.77 mmol/L (3.70-5.30); pH, Arterial 7.428 (7.35-7.45)
[2023-02-20 07:49] LABS: Puncture Site LRA
[2023-02-20] MEDS: Pantoprazole 40 MG VIAL IVP SCH (08:55)
[2023-02-20 09:23] LABS: BUN (Urea Nitrogen) 127 mg/dL (8.4-25.7)
[2023-02-20] MEDS ORDERED: Lorazepam 2 MG/ML VIAL SLOW IVP PRN (15:56)
[2023-02-21] MEDS: Morphine 2 MG/ML VIAL SLOW IVP PRN ×3 (01:18→15:50)
[2023-02-21] MEDS: Lorazepam 2 MG/ML VIAL SLOW IVP PRN (15:49)
[2023-02-22] MEDS: Morphine 2 MG/ML VIAL SLOW IVP PRN (06:11)
[2023-02-22] MEDS: Lorazepam 2 MG/ML VIAL SLOW IVP PRN (06:14)
[2023-02-22 11:47] VITALS: BMI 32.8
[2023-02-22] MEDS ORDERED: Acetaminophen 650 MG Suppository PR PRN (13:45)
[2023-02-22 20:00] VITALS: BP 89/40; TEMP 100
== END 2023-02-23 06:30 | disposition expired | DRG 870 ==
LOC: ERS 02:58 → CCU 07:49 → MSONC 02-21 07:40
PROVIDERS: ADMIT Internal Medicine; ATTEND Family Medicine
PROC: 06HY33Z Insertion of Infusion Device into Lower Vein, Percutaneous Approach (ICD-10-PCS; principal; 2023-02-14)
PROC: 0F798DZ Dilation of Common Bile Duct with Intraluminal Device, Via Natural or Artificial Opening Endoscopic (ICD-10-PCS; 2023-02-14)
PROC: BF101ZZ Fluoroscopy of Bile Ducts using Low Osmolar Contrast (ICD-10-PCS; 2023-02-14)
PROC: 5A1955Z Respiratory Ventilation, Greater than 96 Consecutive Hours (ICD-10-PCS; 2023-02-14)
PROC: 3E033XZ Introduction of Vasopressor into Peripheral Vein, Percutaneous Approach (ICD-10-PCS; 2023-02-14)
PROC: 30233J1 Transfusion of Nonautologous Serum Albumin into Peripheral Vein, Percutaneous Approach (ICD-10-PCS; 2023-02-14)
PROC: 3E03329 Introduction of Other Anti-infective into Peripheral Vein, Percutaneous Approach (ICD-10-PCS; 2023-02-14)
PROC: 4A033R1 Measurement of Arterial Saturation, Peripheral, Percutaneous Approach (ICD-10-PCS; 2023-02-15)
DX: A41.9 Sepsis, unspecified organism (principal); G93.41 Metabolic encephalopathy; I21.A1 Myocardial infarction type 2; R65.21 Severe sepsis with septic shock; J96.01 Acute respiratory failure with hypoxia; I50.43 Acute on chronic combined systolic (congestive) and diastolic (congestive) heart failure; N17.9 Acute kidney failure, unspecified; N39.0 Urinary tract infection, site not specified; D68.9 Coagulation defect, unspecified; E87.20 Acidosis, unspecified; E87.1 Hypo-osmolality and hyponatremia; N18.4 Chronic kidney disease, stage 4 (severe); I13.0 Hypertensive heart and chronic kidney disease with heart failure and stage 1 through stage 4 chronic kidney disease, or unspecified chronic kidney disease; K80.33 Calculus of bile duct with acute cholangitis with obstruction; I42.0 Dilated cardiomyopathy; Z66 Do not resuscitate; E66.9 Obesity, unspecified; Z51.5 Encounter for palliative care; I48.91 Unspecified atrial fibrillation; K21.9 Gastro-esophageal reflux disease without esophagitis; F03.90 Unspecified dementia, unspecified severity, without behavioral disturbance, psychotic disturbance, mood disturbance, and anxiety; E11.22 Type 2 diabetes mellitus with diabetic chronic kidney disease; E78.5 Hyperlipidemia, unspecified; N40.0 Benign prostatic hyperplasia without lower urinary tract symptoms; E11.649 Type 2 diabetes mellitus with hypoglycemia without coma; E87.5 Hyperkalemia; E11.65 Type 2 diabetes mellitus with hyperglycemia; D63.1 Anemia in chronic kidney disease; D69.6 Thrombocytopenia, unspecified; I49.5 Sick sinus syndrome; I08.0 Rheumatic disorders of both mitral and aortic valves; I25.10 Atherosclerotic heart disease of native coronary artery without angina pectoris; E11.51 Type 2 diabetes mellitus with diabetic peripheral angiopathy without gangrene; E87.6 Hypokalemia; E88.09 Other disorders of plasma-protein metabolism, not elsewhere classified; B96.89 Other specified bacterial agents as the cause of diseases classified elsewhere; Z87.09 Personal history of other diseases of the respiratory system; Z87.2 Personal history of diseases of the skin and subcutaneous tissue; Z85.79 Personal history of other malignant neoplasms of lymphoid, hematopoietic and related tissues; Z88.1 Allergy status to other antibiotic agents; Z90.49 Acquired absence of other specified parts of digestive tract; Z95.0 Presence of cardiac pacemaker; Z79.899 Other long term (current) drug therapy; Z79.4 Long term (current) use of insulin; Z86.73 Personal history of transient ischemic attack (TIA), and cerebral infarction without residual deficits; I25.2 Old myocardial infarction; Z87.448 Personal history of other diseases of urinary system; Z68.32 Body mass index [BMI] 32.0-32.9, adult
CPT/HCPCS: 36415; 36416; 36556; 36600; 51701; 70450; 71045; 74176; 76705; 80048; 80053; 80076; 80202; 81003; 81015; 82140; 82533; 82550; 82553; 82805; 83605; 83690; 83735; 83880; 84100; 84145; 84443; 84484; 85025; 85610; 85730; 86140; 87040; 87077; 87086; 87149; 87186; 93005; 93970; 94002; 94003; 96365; 96366; 96375; 96376; 97139; C2625; C9113; J0171; J0612; J0613; J0692; J0696; J1644; J1720; J1815; J1885; J1940; J2060; J2250; J2272; J2704; J3010; J3370; J3475; J3480; J3490; J7050; J7070; J7611; J7999; P9047; Q9967